=== PATIENT | female | born 1990 | race African-American/Black ===

== ENCOUNTER 2021-02-25 13:30 | Inpatient (IN) | payer OTHER, SELFPAY ==
--- NOTE | ~2021-02-25 | XR_ITS ---
EXAMINATION: XR CHEST CLINICAL INFORMATION: Cough and Covid positive. Decreased O2 saturation COMPARISON: None TECHNIQUE: 2 views of the chest were obtained. FINDINGS: The lungs are hypoexpanded with patchy opacity in the right midlung, left upper lobe and left lower lobe. Heart size and pulmonary vascularity is normal. No gross bony abnormality seen. XR/XR chest 2V IMPRESSION: Patchy opacity right midlung and left upper and lower lobe suggestive of panlobular infiltrates. There is no pleural effusion.
[2021-02-25 14:01] VITALS: BP 125/77; PULSE 100; RESP 19; TEMP 36.6; O2SAT 93; BMI 41.5
--- NOTE | 2021-02-25 16:12 | ED_ITS ---
HPI - URI/Sore Throat General Chief Complaint: Upper Respiratory Symptoms Stated Complaint: chest pain cough w/ mucus & blood Time Seen by Provider: 02/25/21 15:21 Source: patient Mode of arrival: ambulatory Limitations: no limitations History of Present Illness HPI Narrative: Patient no significant medical history not vaccinated against COVID having shortness of breath symptoms for last 1 week tested for COVID pcr test positive 5 days ago comes here for increased shortness of breath saturating 91% at room air dropped to 89% while in the ER . Patient been coughing a lot, feel chest tight subjective fever and malaise. Denies any nausea/vomiting or diarrhea Related Data Home Medications Medication Instructions Recorded Confirmed No Known Home Meds 02/25/21 02/25/21 Allergies Allergy/AdvReac Type Severity Reaction Status Date / Time No Known Allergies Allergy Verified 02/25/21 15:22 Review of Systems Review of Systems: Yes all other systems are reviewed and are negative [facility] Social History Social History Alcohol intake: never Patient Tobacco Use Status: Never used Tobacco Use of substances other than those prescribed or required for medical reasons: No Advance Directives: No Advance Directives Information Provided: Yes Patient : No Physical Exam Vital Signs: Vital Signs: Last Vital Signs Temp 98.9 F 02/25/21 20:27 Pulse 105 H 02/25/21 20:27 Resp 32 H 02/25/21 20:27 BP 111/51 L 02/25/21 20:27 Pulse Ox 97 02/25/21 20:27 BMI result Body Mass Index 41.5 Appearance: Alert. Oriented X3. No acute distress. Eyes: No pallor or icterus ENT: Pharynx normal. Oral Mucosa moist Neck: Normal inspection. Neck supple. CVS: Normal heart rate and rhythm. Pulses normal. Respiratory: No respiratory distress. Equal air entry bilateral, prolonged expiration Abdomen: Soft and nontender. Bowel sounds are present, no mass palpable, no CVA tenderness Skin: Skin warm and dry. Normal skin color. Normal skin turgor. Extremities: No lower extremity edema. No calf tenderness Neuro: Oriented X 3. MDM - URI/Sore Throat MDM Narrative Medical decision making narrative: Patient with COVID pneumonia and NAAT COVID test was negative will check the PCR as patient clinically and with chest x-ray looks like COVID pneumonia plan to admit patient for hypoxia will give IV Decadron prophylactic Rocephin Lab Data Attestation: I reviewed the patient's lab results. Result diagrams: 02/25/21 18:03 02/25/21 20:33 Labs: Lab Results 02/25/21 02/25/21 02/25/21 Range/Units 18:03 18:03 18:03 WBC 4.8 (4.8-10.8) X10*3/uL RBC 5.01 (4.20-5.50) X10*6/uL Hgb 13.5 (12.0-16.0) g/dl Hct 41.7 (37.0-47.0) % MCV 83.2 (80.0-98.0) fL MCH 26.9 L (27.0-33.0) pg MCHC 32.4 (31.0-35.0) g/dl RDW 13.9 (11.0-16.0) % Plt Count 296 (160-400) X10*3/uL MPV 10.0 (9.4-12.3) fL Immature Gran % (Auto) 1.5 H (0.0-0.4) % Neut % (Auto) 54.4 (45-73) % Lymph % (Auto) 33.1 (20-40) % [place] % (Auto) 10.4 (2-11) % Eos % (Auto) 0.4 (0-4) % Baso % (Auto) 0.2 (0-2) % Lymph # (Auto) 1.6 (1.2-4.9) X10*3/uL [place] # (Auto) 0.5 (0.1-1.2) X10*3/uL Eos # (Auto) 0.0 (0.0-0.4) X10*3/uL Baso # (Auto) 0.0 (0.0-0.2) X10*3/uL Abs Immat Gran (auto) 0.07 H (0.00-0.03) X10*3/uL Absolute Neuts (auto) 2.6 (2.0-8.3) x10*3/uL Absolute Nucleated RBC 0.000 (0.0-0.012) X10*3/uL Nucleated RBC % (auto) 0.0 (0.0-0.2) /100WBC Smear Tech's Comments VERIFIED D-Dimer High Sensitivty 233 NG/ML Sodium (135-145) mmol/L Potassium (3.3-5.1) mmol/L Chloride (96-108) mmol/L Carbon Dioxide (22-29) mmol/L Anion Gap (12-20) BUN (9-16) mg/dL Creatinine (0.5-1.4) mg/dL Estim Creat Clear Calc Estimated GFR Random Glucose (60-115) mg/dL Lactic Acid (0.5-2.0) mmol/L Calcium (8.4-10.2) mg/dL COVID-19 (ZIGGY) Negative (Negative) COVID-19 Clin Com See Note 02/25/21 02/25/21 Range/Units 18:03 20:33 WBC (4.8-10.8) X10*3/uL RBC (4.20-5.50) X10*6/uL Hgb (12.0-16.0) g/dl Hct (37.0-47.0) % MCV (80.0-98.0) fL MCH (27.0-33.0) pg MCHC (31.0-35.0) g/dl RDW (11.0-16.0) % Plt Count (160-400) X10*3/uL MPV (9.4-12.3) fL Immature Gran % (Auto) (0.0-0.4) % Neut % (Auto) (45-73) % Lymph % (Auto) (20-40) % [place] % (Auto) (2-11) % Eos % (Auto) (0-4) % Baso % (Auto) (0-2) % Lymph # (Auto) (1.2-4.9) X10*3/uL [place] # (Auto) (0.1-1.2) X10*3/uL Eos # (Auto) (0.0-0.4) X10*3/uL Baso # (Auto) (0.0-0.2) X10*3/uL Abs Immat Gran (auto) (0.00-0.03) X10*3/uL Absolute Neuts (auto) (2.0-8.3) x10*3/uL Absolute Nucleated RBC (0.0-0.012) X10*3/uL Nucleated RBC % (auto) (0.0-0.2) /100WBC Smear Tech's Comments D-Dimer High Sensitivty NG/ML Sodium 138 (135-145) mmol/L Potassium 4.1 (3.3-5.1) mmol/L Chloride 104 (96-108) mmol/L Carbon Dioxide 25 (22-29) mmol/L Anion Gap 13 (12-20) BUN 6 L (9-16) mg/dL Creatinine 0.66 (0.5-1.4) mg/dL Estim Creat Clear Calc 159.4 Estimated GFR > 60 Random Glucose 287 H (60-115) mg/dL Lactic Acid 1.8 (0.5-2.0) mmol/L Calcium 8.5 (8.4-10.2) mg/dL COVID-19 (ZIGGY) (Negative) COVID-19 Clin Com Discharge Plan Discharge Clinical Impression: Acute hypoxemic respiratory failure due to COVID-19 Patient Disposition: Admitted As Inpatient
[2021-02-25] MEDS: Albuterol Sulfate 90 MCG 8 GM INHALER 4 PUFF INHALE (16:51)
[2021-02-25 16:54] VITALS: PULSE 107; RESP 18; O2SAT 95
[2021-02-25 17:42] VITALS: BP 145/83; PULSE 110; RESP 18; TEMP 37.5; O2SAT 86
[2021-02-25 18:20] LABS: D Dimer High Sensitivity 233 NG/ML
[2021-02-25 18:30] LABS: Lactic Acid 1.8 mmol/L (0.5-2.0)
[2021-02-25 18:32] LABS: COVID-19 Test Negative (Negative)
[2021-02-25 18:33] LABS: Basophils Percent Auto 0.2 % (0-2); Eosinophils Percent Auto 0.4 % (0-4); Hematocrit 41.7 % (37.0-47.0); Hemoglobin 13.5 g/dl (12.0-16.0); Imm Gran Abs Auto 0.07 X10*3/uL (0.00-0.03); Imm Gran Pct Auto 1.5 % (0.0-0.4); Lymphocytes Absolute Auto 1.6 X10*3/uL (1.2-4.9); Lymphocytes Percent Auto 33.1 % (20-40); MANUAL DIFF FLAG SCAN; Mean Corpuscular HGB Conc 32.4 g/dl (31.0-35.0); Mean Corpuscular Hemoglobin 26.9 pg (27.0-33.0); Mean Corpuscular Volume 83.2 fL (80.0-98.0); Monocytes Absolute Auto 0.5 X10*3/uL (0.1-1.2); Monocytes Percent Auto 10.4 % (2-11); Neutrophils Absolute Auto 2.6 x10*3/uL (2.0-8.3); Neutrophils Percent Auto 54.4 % (45-73); Platelet Count 296 X10*3/uL (160-400); Red Blood Count 5.01 X10*6/uL (4.20-5.50); Red Cell Distribution Width 13.9 % (11.0-16.0); SCAN SMEAR FLAG 1; White Blood Count 4.8 X10*3/uL (4.8-10.8)
[2021-02-25] MEDS: guaiFEN/Codeine SF 200/20/10ML 10 ML LIQUID PO (18:39)
[2021-02-25] MEDS: 0.9 % Sodium Chloride 1,000 ML 999 ML IV (18:40)
[2021-02-25] MEDS: dexAMETHasone sod phosphate 10 MG/ML VIAL IVPUSH (18:42)
[2021-02-25] MEDS: cefTRIAXone sodium 1 GM in 0.9 % Sodium Chloride 50 ML IV (18:42)
[2021-02-25 18:43] VITALS: O2SAT 93
[2021-02-25 19:19] LABS: SLIDE REVIEW VERIFIED
--- NOTE | 2021-02-25 19:40 | PHA.MEDREC ---
Pharmacy Consult ? Medication Reconciliation Pharmacy has completed the medication reconciliation.
--- NOTE | 2021-02-25 20:12 | PC.NURSE ---
Pt states she tested positive at the [facility] a few days ago. Contact precautions in effect. Unlabored resp at rest with 2L NC.
[2021-02-25 20:27] VITALS: BP 111/51; PULSE 105; RESP 32; TEMP 37.2; O2SAT 97
[2021-02-25 20:54] LABS: Anion Gap 13 (12-20); Blood Urea Nitrogen 6 mg/dL (9-16); Calcium 8.5 mg/dL (8.4-10.2); Carbon Dioxide 25 mmol/L (22-29); Chloride 104 mmol/L (96-108); Creatinine Clr Calc Pharmacy 159.4; Estimated Glomerular Filt Rate > 60; Glucose Random 287 mg/dL (60-115); Potassium 4.1 mmol/L (3.3-5.1); Sodium 138 mmol/L (135-145)
--- NOTE | 2021-02-25 21:47 | PM.IMHP ---
History of Present Illness Date of Service: 02/25/21 Chief Complaint: Shortness of breath 30-year-old female with a past medical history of diabetes presented to the hospital today with a chief complaint of shortness of breath. Patient reported that for the past 1 week she has been having shortness of breath, cough, posttussive chest discomfort, generalized body aches, generally weak; and was tested positive for COVID-19 on 02/20/21; has been progressively worsening clinically; given continued symptoms and increased cough decided to come to the ER for further evaluation. Denies any nausea vomiting diarrhea. Denies any urinary symptoms. Denies any sputum production. Currently denies any chest pain or palpitations. Patient reports that she was not vaccinated against COVID-19 Review of all other systems is negative except mentioned above ER course: Per ER team patient was noted to be saturating 89% on presentation; coarse breath sounds; chest x-ray showed patchy infiltrates concerning for COVID 19 pneumonia. But rapid COVID test was negative in the ER. Admitted for further management. Patient also PMFSH Pertinent family history: Reviewed Social History Household Members: Spouse and Children Housing: Other Housing Other:: town house Do you presently have visiting nurse or other home services: No Alcohol intake: never Patient Tobacco Use Status: Never used Tobacco Substance Use Type: Marijuana service: No Current occupational status: unemployed Meds Allergies Allergy/AdvReac Type Severity Reaction Status Date / Time No Known Allergies Allergy Verified 02/25/21 15:22 Active Medications: Current Medications Pharmacy Consult (Consult Rx Perform Med Rec) 1 each MISCELLANE ONCE PRN PRN Reason: Consult order Physical Exam Vital Signs and Narrative: Vital Signs: Last Vital Signs Temp 98.9 F 02/25/21 20:27 Pulse 105 H 02/25/21 20:27 Resp 32 H 02/25/21 20:27 BP 111/51 L 02/25/21 20:27 Pulse Ox 97 02/25/21 20:27 BMI result Body Mass Index 41.5 Gen: Appears be in no acute distress; on supplemental oxygen. Speaks in full sentences. HEENT: NCAT, Moist mucosa. Pulmonary: Coarse breath sounds CVS: Normal S1-S2 Abdomen: BS+, Soft, Nontender Extremities: Warm well perfused Neuro: Alert and awake. Results Labs CBC and Chem 7: 02/26/21 06:28 02/26/21 06:28 Labs: Laboratory Results - last 24 hr 02/25/21 02/25/21 02/25/21 18:03 18:03 18:03 MCV 83.2 MCH 26.9 L MCHC 32.4 RDW 13.9 Plt Count 296 MPV 10.0 Immature Gran % (Auto) 1.5 H Neut % (Auto) 54.4 Lymph % (Auto) 33.1 [place] % (Auto) 10.4 Eos % (Auto) 0.4 Baso % (Auto) 0.2 Lymph # (Auto) 1.6 [place] # (Auto) 0.5 Eos # (Auto) 0.0 Baso # (Auto) 0.0 Abs Immat Gran (auto) 0.07 H Absolute Neuts (auto) 2.6 Absolute Nucleated RBC 0.000 Nucleated RBC % (auto) 0.0 Smear Tech's Comments VERIFIED D-Dimer High Sensitivty 233 Anion Gap Estim Creat Clear Calc Estimated GFR Random Glucose Lactic Acid Calcium COVID-19 (ZIGGY) Negative COVID-19 Clin Com See Note 02/25/21 02/25/21 18:03 20:33 MCV MCH MCHC RDW Plt Count MPV Immature Gran % (Auto) Neut % (Auto) Lymph % (Auto) [place] % (Auto) Eos % (Auto) Baso % (Auto) Lymph # (Auto) [place] # (Auto) Eos # (Auto) Baso # (Auto) Abs Immat Gran (auto) Absolute Neuts (auto) Absolute Nucleated RBC Nucleated RBC % (auto) Smear Tech's Comments D-Dimer High Sensitivty Anion Gap 13 Estim Creat Clear Calc 159.4 Estimated GFR > 60 Random Glucose 287 H Lactic Acid 1.8 Calcium 8.5 COVID-19 (ZIGGY) COVID-19 Clin Com Imaging Radiologist's Impressions: Impressions Chest X-Ray 02/25/21 14:13 IMPRESSION: Patchy opacity right midlung and left upper and lower lobe suggestive of panlobular infiltrates. There is no pleural effusion. Assessment and Plan (1) Acute hypoxemic respiratory failure due to COVID-19: Status: Resolved (2) Diabetes: Status: Acute 30-year-old female with a past medical history of diabetes presented to the hospital today with a chief complaint of shortness of breath/cough/COVID positive on 02/20/2021. Admitted for further management. COVID-19 pneumonia: Patient tested positive on 02/20/2021. Patient not vaccinated prior. Continue Decadron, ceftriaxone, azithromycin Id consult for further recommendations Patient saturating 89% on room air-placed on supplemental oxygenation; not in respiratory distress. Diabetes: Insulin sliding scale DVT prophylaxis: Lovenox Code status: Full code Quality Stroke Does the patient have a stroke diagnosis?: No VTE Prior VTE?: No VTE Risk Level:: Medical - low VTE Device Contraindication: N/A - Device Ordered VTE Drug Contraindication: Treatment Not Indicated
[2021-02-25 22:13] VITALS: BP 125/73; PULSE 101; RESP 29; TEMP 36.9; O2SAT 98
[2021-02-25 22:15] LABS: Influenza A PCR NEGATIVE (Negative); Influenza B PCR NEGATIVE (Negative); Resp Syncy Virus RNA Qual PCR NEGATIVE (Negative); SARS COV2 PCR INHOUSE POSITIVE (Negative)
[2021-02-25 22:16] LABS: HCG Quantitative < 2 mIU/mL
[2021-02-25 22:20] LABS: Glucose, Whole Blood 296 mg/dL (60-115)
[2021-02-25] MEDS: Insulin Lispro 100 UNIT/ML 3 ML VIAL SUBCUT (23:03)
[2021-02-25] MEDS: Azithromycin 500 MG TABLET PO (23:04)
[2021-02-25 23:10] LABS: Appearance Urine CLEAR; Color Urine YELLOW; Glucose Urine UA >=1000 MG/DL (NEG); Leukocyte Esterase Urine NEG (NEG); Nitrite Urine NEG (NEG); Specific Gravity - Urine 1.015 (1.005-1.025); Urine Blood 3+ (NEG); Urine Ketones NEG (NEG); Urine Protein NEG (NEG-TRACE)
[2021-02-25] MEDS: Enoxaparin Sodium 40 MG/0.4 ML SYRINGE SUBCUT (23:38)
[2021-02-25 23:59] LABS: Squamous Epithelial Cell Urine TRACE /LPF; WBC Urine 0-2 /HPF (0-4)
[2021-02-26 01:57] VITALS: BP 134/76; PULSE 102; RESP 31; TEMP 37.2; O2SAT 95
[2021-02-26 06:50] LABS: Hematocrit 39.5 % (37.0-47.0); Hemoglobin 12.8 g/dl (12.0-16.0); Imm Gran Abs Auto 0.08 X10*3/uL (0.00-0.03); Imm Gran Pct Auto 2.7 % (0.0-0.4); Lymphocytes Percent Auto 33.4 % (20-40); MANUAL DIFF FLAG SCAN; Mean Corpuscular HGB Conc 32.4 g/dl (31.0-35.0); Mean Corpuscular Hemoglobin 27.1 pg (27.0-33.0); Mean Corpuscular Volume 83.7 fL (80.0-98.0); Mean Platelet Volume 9.8 fL (9.4-12.3); Monocytes Absolute Auto 0.2 X10*3/uL (0.1-1.2); Neutrophils Absolute Auto 1.7 x10*3/uL (2.0-8.3); Neutrophils Percent Auto 57.9 % (45-73); Platelet Count 319 X10*3/uL (160-400); Red Blood Count 4.72 X10*6/uL (4.20-5.50); Red Cell Distribution Width 13.9 % (11.0-16.0); SCAN SMEAR FLAG 1
[2021-02-26 07:10] LABS: SLIDE REVIEW VERIFIED
[2021-02-26 07:14] LABS: Anion Gap 14 (12-20); Blood Urea Nitrogen 9 mg/dL (9-16); Calcium 9.1 mg/dL (8.4-10.2); Carbon Dioxide 22 mmol/L (22-29); Chloride 106 mmol/L (96-108); Creatinine Clr Calc Pharmacy 169.7; Estimated Glomerular Filt Rate > 60; Glucose Random 241 mg/dL (60-115); Potassium 4.3 mmol/L (3.3-5.1); Sodium 138 mmol/L (135-145)
[2021-02-26 08:45] LABS: Glucose, Whole Blood 205 mg/dL (60-115)
[2021-02-26 09:07] LABS: C Reactive Protein 5.14 mg/dL (< or = 0.50)
[2021-02-26 09:17] LABS: Estimated Average Glucose 177 mg/dL; Hemoglobin A1c % 7.8 %; Lactate Dehydrogenase 277 U/L (122-220)
[2021-02-26 09:28] LABS: Ferritin 343 ng/mL (10-122)
[2021-02-26] MEDS: dexAMETHasone 6 MG TABLET PO (09:29)
[2021-02-26] MEDS: 0.9 % Sodium Chloride Flush 3 ML SYRINGE IVFLUSH ×2 (09:30→18:43)
[2021-02-26] MEDS: Insulin Lispro 100 UNIT/ML 3 ML VIAL SUBCUT ×4 (09:31→21:42)
[2021-02-26 09:33] LABS: Procalcitonin 0.04 ng/mL
--- NOTE | 2021-02-26 10:56 | HO.PM.IMPN ---
Subjective Subjective Date of Service: 02/26/21 Interval History: seen and examined this AM she reports feeling better and breathing eaiser denies any fevers or chills in regards to her DM -- she reports that she had gestational DM, but has not been on any meds since delivery (was on metformin then) Review of Systems negative except interval history Physical Exam Vital Signs: Vital Signs: Last Vital Signs Temp 99.0 F 02/26/21 01:57 Pulse 102 H 02/26/21 01:57 Resp 31 H 02/26/21 01:57 BP 134/76 02/26/21 01:57 Pulse Ox 95 02/26/21 01:57 BMI result Body Mass Index 41.5 Const: Other: General - no acute distress, appears comfortable Cardiovascular - regular rate and rhythm, S1-S2 Lungs - dim sounds Abdomen - soft, nontender, no rebound or guarding Extremities - no edema bilaterally Neuro - awake and alert, no focal deficits Objective Data Active Medications Acetaminophen (Acetaminophen 325 Mg Tablet) 650 mg PO Q6H PRN PRN Reason: Pain, Mild (Pain Scale 1-3) Dexamethasone Sodium Phosphate (Dexamethasone Sod Phosphate 4 Mg/Ml Vial) 6 mg IVPUSH DAILY [facility] Stop: 03/08/21 09:01 Dextrose (Dextrose 50 % 25 Gm/50 Ml Vial) 25 gm IVPUSH Q15M PRN; Protocol PRN Reason: per Hypoglycemia Standing Ord. Enoxaparin Sodium (Enoxaparin Sodium 40 Mg/0.4 Ml Syringe) 40 mg SUBCUT Q24H [facility] Last Admin: 02/25/21 23:38 Dose: 40 mg Documented by: ANDRE Glucose (Glucose Gel 15 Gm Gel..Gram.) 15 gm PO Q15M PRN; Protocol PRN Reason: per Hypoglycemia Standing Ord. Insulin Human Lispro (Insulin Lispro 100 Unit/Ml 3 Ml Vial) 0 unit SUBCUT QIDACHS [facility]; Protocol Last Admin: 02/26/21 09:31 Dose: 4 unit Documented by: ASHLEY Melatonin (Melatonin 3 Mg Tablet) 6 mg PO BEDTIME PRN PRN Reason: Insomnia Pharmacy Consult (Consult Rx Perform Med Rec) 1 each MISCELLANE ONCE PRN PRN Reason: Consult order Senna (Sennosides 8.6 Mg Tablet) 17.2 mg PO BEDTIME PRN PRN Reason: Constipation Sodium Chloride (0.9 % Sodium Chloride Flush 3 Ml Syringe) 3 ml IVFLUSH QSHIFT [facility] Last Admin: 02/26/21 09:30 Dose: 3 ml Documented by: ASHLEY Labs CBC & Chem 7: 02/26/21 06:28 02/26/21 06:28 Labs: Laboratory Results - last 24 hr 02/25/21 02/25/21 02/25/21 18:03 18:03 18:03 MCV 83.2 MCH 26.9 L MCHC 32.4 RDW 13.9 Plt Count 296 MPV 10.0 Immature Gran % (Auto) 1.5 H Neut % (Auto) 54.4 Lymph % (Auto) 33.1 [place] % (Auto) 10.4 Eos % (Auto) 0.4 Baso % (Auto) 0.2 Lymph # (Auto) 1.6 [place] # (Auto) 0.5 Eos # (Auto) 0.0 Baso # (Auto) 0.0 Abs Immat Gran (auto) 0.07 H Absolute Neuts (auto) 2.6 Absolute Nucleated RBC 0.000 Nucleated RBC % (auto) 0.0 Smear Tech's Comments VERIFIED D-Dimer High Sensitivty 233 Anion Gap Estim Creat Clear Calc Estimated GFR POC Glucose Random Glucose Estimat Average Glucose Hemoglobin A1c % Lactic Acid Calcium Ferritin Lactate Dehydrogenase C-Reactive Protein Procalcitonin Beta HCG, Quant Urine Color Urine Appearance Urine pH Ur Specific [place] Urine Protein Urine Glucose (UA) Urine Ketones Urine Blood Urine Nitrite Ur Leukocyte Esterase Urine RBC Urine WBC Ur Squamous Epith Cells Urine Bacteria COVID-19 (ZIGGY) Negative COVID-19 Clin Com See Note Influenza Type A (PCR) Influenza Type B (PCR) RSV RNA Qual (PCR) SARS-CoV-2 RNA (RT-PCR) 02/25/21 02/25/21 02/25/21 18:03 20:33 20:33 MCV MCH MCHC RDW Plt Count MPV Immature Gran % (Auto) Neut % (Auto) Lymph % (Auto) [place] % (Auto) Eos % (Auto) Baso % (Auto) Lymph # (Auto) [place] # (Auto) Eos # (Auto) Baso # (Auto) Abs Immat Gran (auto) Absolute Neuts (auto) Absolute Nucleated RBC Nucleated RBC % (auto) Smear Tech's Comments D-Dimer High Sensitivty Anion Gap 13 Estim Creat Clear Calc 159.4 Estimated GFR > 60 POC Glucose Random Glucose 287 H Estimat Average Glucose Hemoglobin A1c % Lactic Acid 1.8 Calcium 8.5 Ferritin Lactate Dehydrogenase C-Reactive Protein Procalcitonin Beta HCG, Quant < 2 Urine Color Urine Appearance Urine pH Ur Specific [place] Urine Protein Urine Glucose (UA) Urine Ketones Urine Blood Urine Nitrite Ur Leukocyte Esterase Urine RBC Urine WBC Ur Squamous Epith Cells Urine Bacteria COVID-19 (ZIGGY) COVID-19 Clin Com Influenza Type A (PCR) NEGATIVE Influenza Type B (PCR) NEGATIVE RSV RNA Qual (PCR) NEGATIVE SARS-CoV-2 RNA (RT-PCR) POSITIVE A 02/25/21 02/25/21 02/26/21 22:12 22:50 06:28 MCV 83.7 MCH 27.1 MCHC 32.4 RDW 13.9 Plt Count 319 MPV 9.8 Immature Gran % (Auto) 2.7 H Neut % (Auto) 57.9 Lymph % (Auto) 33.4 [place] % (Auto) 6.0 Eos % (Auto) 0.0 Baso % (Auto) 0.0 Lymph # (Auto) 1.0 L [place] # (Auto) 0.2 Eos # (Auto) 0.0 Baso # (Auto) 0.0 Abs Immat Gran (auto) 0.08 H Absolute Neuts (auto) 1.7 L Absolute Nucleated RBC 0.000 Nucleated RBC % (auto) 0.0 Smear Tech's Comments VERIFIED D-Dimer High Sensitivty Anion Gap Estim Creat Clear Calc Estimated GFR POC Glucose 296 H Random Glucose Estimat Average Glucose Hemoglobin A1c % Lactic Acid Calcium Ferritin Lactate Dehydrogenase C-Reactive Protein Procalcitonin Beta HCG, Quant Urine Color YELLOW Urine Appearance CLEAR Urine pH 7.0 Ur Specific [place] 1.015 Urine Protein NEG Urine Glucose (UA) >=1000 H Urine Ketones NEG Urine Blood 3+ H Urine Nitrite NEG Ur Leukocyte Esterase NEG Urine RBC 1-4 Urine WBC 0-2 Ur Squamous Epith Cells TRACE Urine Bacteria NONE COVID-19 (ZIGGY) COVID-19 Clin Com Influenza Type A (PCR) Influenza Type B (PCR) RSV RNA Qual (PCR) SARS-CoV-2 RNA (RT-PCR) 02/26/21 02/26/21 02/26/21 06:28 06:28 06:28 MCV MCH MCHC RDW Plt Count MPV Immature Gran % (Auto) Neut % (Auto) Lymph % (Auto) [place] % (Auto) Eos % (Auto) Baso % (Auto) Lymph # (Auto) [place] # (Auto) Eos # (Auto) Baso # (Auto) Abs Immat Gran (auto) Absolute Neuts (auto) Absolute Nucleated RBC Nucleated RBC % (auto) Smear Tech's Comments D-Dimer High Sensitivty Anion Gap 14 Estim Creat Clear Calc 169.7 Estimated GFR > 60 POC Glucose Random Glucose 241 H Estimat Average Glucose 177 Hemoglobin A1c % 7.8 Lactic Acid Calcium 9.1 D Ferritin 343 H Lactate Dehydrogenase 277 H C-Reactive Protein 5.14 H Procalcitonin 0.04 Beta HCG, Quant Urine Color Urine Appearance Urine pH Ur Specific [place] Urine Protein Urine Glucose (UA) Urine Ketones Urine Blood Urine Nitrite Ur Leukocyte Esterase Urine RBC Urine WBC Ur Squamous Epith Cells Urine Bacteria COVID-19 (ZIGGY) COVID-19 Clin Com Influenza Type A (PCR) Influenza Type B (PCR) RSV RNA Qual (PCR) SARS-CoV-2 RNA (RT-PCR) 02/26/21 08:42 MCV MCH MCHC RDW Plt Count MPV Immature Gran % (Auto) Neut % (Auto) Lymph % (Auto) [place] % (Auto) Eos % (Auto) Baso % (Auto) Lymph # (Auto) [place] # (Auto) Eos # (Auto) Baso # (Auto) Abs Immat Gran (auto) Absolute Neuts (auto) Absolute Nucleated RBC Nucleated RBC % (auto) Smear Tech's Comments D-Dimer High Sensitivty Anion Gap Estim Creat Clear Calc Estimated GFR POC Glucose 205 H Random Glucose Estimat Average Glucose Hemoglobin A1c % Lactic Acid Calcium Ferritin Lactate Dehydrogenase C-Reactive Protein Procalcitonin Beta HCG, Quant Urine Color Urine Appearance Urine pH Ur Specific [place] Urine Protein Urine Glucose (UA) Urine Ketones Urine Blood Urine Nitrite Ur Leukocyte Esterase Urine RBC Urine WBC Ur Squamous Epith Cells Urine Bacteria COVID-19 (ZIGGY) COVID-19 Clin Com Influenza Type A (PCR) Influenza Type B (PCR) RSV RNA Qual (PCR) SARS-CoV-2 RNA (RT-PCR) Assessment and Plan (1) Acute hypoxemic respiratory failure due to COVID-19: Status: Acute Assessment and Plan: This is a 30 yo F who has a PMH of gestational DM, not vaccinated against COVID, who presents to the hospital about 5 days (tested positive 02/22/21) after being diagnosed with COVID with progressive respiratory symptoms. She is found to he hypoxic with CXR showing infiltrates. Admitted for further treatment. 1. Acute Respiratory Failure with hypoxia secondary to COVID 19 pneumonia 1a. Viral Sepsis due to COVID 19 Met sepsis criteria with persistent tachypnea and tachycardia IV decadron 6mg daily x 10 days ID consult Supplemental oxygen to keep saturations >90%; currently stable on 2L trend inflammatory biomakers No evidence of bacterial pneumonia at this time, d/c IV antibiotics 2. Diabetes, New onset Had gestational DM during previous , but metformin discontinued after delivery A1C is 7.8 Continue sliding scale; Metformin upon d/c Will need close oupatient follow up 3. Morbid Obesity Increases her risk for DM as well as severe covid will need outpatient close f/u Full Code DVT pptx, Lovenox Quality Stroke Does the patient have a stroke diagnosis?: No VTE Prior VTE?: No VTE Risk Level:: Medical - moderate - high VTE Device Contraindication: Treatment Not Indicated VTE Drug Contraindication: N/A - Med Ordered
--- NOTE | 2021-02-26 11:00 | MHC.CM.PN ---
Attempted to meet with patient. Nursing care currently being provided. Will attempt to meet again. Continue to monitor for d/c needs.
[2021-02-26 11:27] LABS: Alanine Aminotransferase 85 U/L (0-31); Albumin Level 3.8 g/dL (3.5-5.0); Alkaline Phosphatase 109 U/L (39-117); Aspartate Amino Transferase 58 U/L (5-31); Bilirubin Direct 0.2 mg/dL (0.0-0.5); Bilirubin Total 0.3 mg/dL (0.0-1.0); Total Protein 6.9 g/dL (6.5-8.0)
[2021-02-26 11:55] VITALS: BP 120/75; PULSE 92; RESP 32; TEMP 36.8; O2SAT 95
[2021-02-26 12:31] LABS: Glucose, Whole Blood 249 mg/dL (60-115)
[2021-02-26 12:45] VITALS: O2SAT 93
--- NOTE | 2021-02-26 12:46 | PC.NURSE ---
patient a&ox3, no c/o pain or discomfort, case consultant intact, [id number], pt o2 dependent 2 liters- 93%, vss, call villareal within reach, will continue to monitor
--- NOTE | 2021-02-26 13:42 | PC.NURSE ---
patient a&ox3, eating lunch, director of cardiac rehabilitation nsr 90s, vss, o sat 94$ on 2L nc, call villareal within reach, will continue to monitor
[2021-02-26 14:43] VITALS: BP 125/78; PULSE 98; RESP 34; TEMP 36.7; O2SAT 91
--- NOTE | 2021-02-26 15:03 | PC.NURSE ---
patient a&ox3, no c/o pain or discomfort, patient facetiming with son on phone, founder ceo & president nsr, will continue to monitor.
[2021-02-26 16:32] LABS: Glucose, Whole Blood 268 mg/dL (60-115)
[2021-02-26 18:43] VITALS: BP 126/73; PULSE 92; RESP 18; TEMP 36.7; O2SAT 95
--- NOTE | 2021-02-26 18:59 | PC.NURSE ---
patient a&ox3, no c/o pain or discomfort, vss, pt remains on O2 NC, property assessment monitor intact nsr, will continue to monitor.
[2021-02-26 21:02] LABS: Glucose, Whole Blood 290 mg/dL (60-115)
[2021-02-26] MEDS: Enoxaparin Sodium 40 MG/0.4 ML SYRINGE SUBCUT (21:42)
--- NOTE | 2021-02-26 22:26 | PC.NURSE ---
patient a&ox3, no c/o pain or discomfort, pt medicated per order, monitoring tech nsr, will continue to monitor.
--- NOTE | 2021-02-26 22:35 | MHC.CM.PN ---
CM met with admitted patient with bed assignment pending. A&Ox3. No IMM necessary. No HCP on file. Pt has copies at home. HCP/ Duy Zambrano ([phone]). Pt was positive Covid on 02/21/20. SX worsening. also positive. Has 8 month old at home. Lives with and family. Uses no services or DME. Pt is unvaccinated. D/C plan is home without services. May need to re-evaluate the need for home O2 closer to discharge. CM to follow for d/c needs.
[2021-02-27] VITALS (8 sets, daily range): BP systolic 127–156; BP diastolic 70–86; PULSE 86–98; RESP 18–30; TEMP 36.1–36.7; O2SAT 89–98; BMI 40.8
[2021-02-27] MEDS: 0.9 % Sodium Chloride Flush 3 ML SYRINGE IVFLUSH ×2 (00:27→09:09)
[2021-02-27 08:34] LABS: Glucose, Whole Blood 277 mg/dL (60-115)
[2021-02-27] MEDS: Insulin Lispro 100 UNIT/ML 3 ML VIAL SUBCUT ×2 (09:09→12:18)
[2021-02-27] MEDS: dexAMETHasone sod phosphate 4 MG/ML VIAL 6 MG IVPUSH (09:09)
--- NOTE | 2021-02-27 11:29 | P.DS_ITS ---
DS: Providers Provider Date of Service: 02/27/21 Date of admission: 02/25/21 22:00 Primary care physician: Dayna Alfonso MD Consults: 02/25/21 22:00 Consult to Infectious Diseases Routine Consulting Provider: Roseann France Reason for consultation: COVID pneumonia DS: Diagnosis Discharge Diagnosis (1) Acute hypoxemic respiratory failure due to COVID-19: Status: Acute DS: Summary Hospital Course Hospital Course: Chief Complaint: Shortness of breath 30-year-old female with a past medical history of diabetes presented to the hospital today with a chief complaint of shortness of breath.? Patient reported that for the past 1 week she has been having shortness of breath, cough, posttussive chest discomfort, generalized body aches, generally weak; and was tested positive for COVID-19 on 02/20/21; has been progressively worsening clinically; given continued symptoms and increased cough decided to come to the ER for further evaluation.? Denies any nausea vomiting diarrhea.? Denies any urinary symptoms.? Denies any sputum production.? Currently denies any chest pain or palpitations.? Patient reports that she was not vaccinated against COVID-19 Review of all other systems is negative except mentioned above ER course: Per ER team patient was noted to be saturating 89% on presentation; coarse breath sounds; chest x-ray showed patchy infiltrates concerning for COVID 19 pneumonia.? Hospital course 30 yo F who has a PMH of gestational DM, not vaccinated against COVID, who presents to the hospital about 5 days (tested positive 02/22/21) after being diagnosed with COVID with progressive respiratory symptoms. She is found to he hypoxic with CXR showing infiltrates. Admitted for further treatment, patient admitted to isolation unit treated with Decadron, cough medication and sup portive care patient did not qualify for remdesivir due to symptom onset > 6 days prior to presentation, patient responded well to above treatment her oxygenation remains stable on room air 92-93% she did not qualify for oxygen therefore being discharged home to finish a total 10 day course of Decadron is also being discharged on Pepcid and recommended to rest drink plenty of fluids and continue to wear mask. In regard to new onset diabetes mellitus with a hemoglobin A1c of 7.8 patient is being discharged on metformin 500 mg by mouth daily patient has history of gestational diabetes and has use metformin in the past Recommend to check blood sugar twice daily and to have close follow-up with PCP, recommend diabetic diet Time Spent with Patient Time attestation: Total time spent providing and/or coordinating discharge services: Discharge coordination time: Greater than 30 minutes Quality: Stroke Does the patient have a stroke diagnosis?: No Physical Exam Vital Signs: Vital Signs: Last Vital Signs Temp 97.8 F 02/27/21 11:11 Pulse 90 02/27/21 11:11 Resp 18 02/27/21 11:11 BP 131/74 02/27/21 11:11 Pulse Ox 92 02/27/21 11:11 Oxygen Flow Rate 2 02/26/21 12:45 BMI result Body Mass Index 40.8 General - no acute distress, appears comfortable Cardi ovascular - regula r rate and rhythm, S1-S2 Lungs - no respiratory distre ss, diminished cale ath sounds Abdomen - soft, nontender , no rebound or gu arding Extremities - no edema bilate rally Neuro - awak e and alert, no fo magdalena deficits DS: Data Data Completed and Pending Labs on day of discharge: Laboratory Results - last 24 hr 02/26/21 02/26/21 02/26/21 12:26 16:27 20:57 POC Glucose 249 H 268 H 290 H 02/27/21 08:28 POC Glucose 277 H Preliminary micro results at discharge 02/25/21 18:13 Blood Culture - Preliminary Blood - Venous No growth after 24 hours. 02/25/21 18:03 Blood Culture - Preliminary Blood - Venous No growth after 24 hours. Discharge Plan Discharge Patient Disposition: Home, Self-Care Discharge Diagnosis: Acute hypoxic respiratory failure due to COVID-19 infection Diabetes mellitus new onset Referrals: Dayna Sharma MD [Primary Care Provider] - 1 Week Discharge Medications: New dexamethasone [Decadron] 6 mg tablet 6 mg PO DAILY Qty: 8 RF: 0 metformin 500 mg tablet 500 mg PO DAILY Qty: 30 RF: 0 famotidine [Pepcid] 20 mg tablet 20 mg PO DAILY Qty: 30 RF: 0 No Action No Known Home Meds RF: 0 Discharge Orders: Discharge Order (Routine); Ordered 02/27/21 Ordered By: Nimco Forte Diet: diabetic diet Activity on Discharge: As tolerated Stand Alone Forms: Patient Portal Discharge page Care Plan Goals: Hypoxic respiratory failure due to COVID-19 infection take Decadron 6 mg by mouth daily for 8 more days take Pepcid 20 mg by mouth daily, rest drink plenty of fluids return to check with worsening symptoms Health Concerns: Diabetes mellitus, check blood sugar twice daily, start metformin 500 mg once daily and increase to 500 mg twice daily after 1 week if able to tolerate without side effects Plan of Treatment: Follow-up with primary care physician in 1 week Assessment: per discharge summary
--- NOTE | 2021-02-27 11:39 | MHC.CM.PN ---
PT CLEARED TO DC HOME TODAY PT DID NOT QUALIFY FOR HOME OXYGEN NO SERVICES ORDERED AT DC PT TO ARRANGE TRANSPORTATION
[2021-02-27 11:46] LABS: Glucose, Whole Blood 242 mg/dL (60-115)
== END 2021-02-27 14:10 | disposition home or self-care (01) | DRG 137 ==
LOC: HO.ED 21:46 → HO.EDOVER 22:25 → HO.IMC 02-26 23:00
PROVIDERS: Family Medicine; Physician Assistant Medical; Admitting Provider Hospitalist; Emergency Provider Internal Medicine; PCP Internal Medicine; Visit Provider Hospitalist
DX: U07.1 COVID-19 (principal); J96.01 Acute respiratory failure with hypoxia; J12.82 Pneumonia due to coronavirus disease 2019; E66.01 Morbid (severe) obesity due to excess calories; Z68.41 Body mass index [BMI] 40.0-44.9, adult; E11.9 Type 2 diabetes mellitus without complications; Z79.84 Long term (current) use of oral hypoglycemic drugs; Z79.899 Other long term (current) drug therapy
CPT/HCPCS: 0241U; 36415; 71046; 80048; 80076; 81001; 81003; 82728; 82947; 83036; 83605; 83615; 84145; 84702; 85025; 85379; 86140; 87040; 87635; 94640; 96361; 96365; 96375; 99285; J0696; J1100; J1650; J8540

== ENCOUNTER 2022-04-09 10:31 | Emergency (ER) | payer OTHER, SELFPAY ==
--- NOTE | ~2022-04-09 | US_ITS ---
EXAMINATION: US PELVIS COMPLETE CLINICAL INFORMATION: Right ovarian cyst, right lower quadrant pain COMPARISON: CT abdomen pelvis performed same day TECHNIQUE: Transabdominal and transvaginal imaging was performed. FINDINGS: The uterus is of normal size and echogenicity measuring 9.9 x 5.3 x 5.8 cm. A regular homogeneous endometrium is identified measuring 0.4 cm. Nabothian cysts in the cervix. Both ovaries are of normal appearance and echogenicity. The right measures 4.5 x 1.9 x 2.2 cm for a volume of 9.9 mL. The left measures 4.1 x 2.1 x 2.2 cm for a volume of 11.4 mL, and may be slightly over measured. No ovarian cyst or mass. There is no pelvic free fluid. Equivocally prominent myometrial vessels. US/US pelvic and transvaginal IMPRESSION: Unremarkable sonographic appearance of the ovaries without evidence of ovarian cyst or mass. In retrospect the structure measured on prior CT likely reflective the right ovary. Equivocally prominent myometrial vessels, recommend correlation with any symptoms of pelvic venous congestion syndrome.
--- NOTE | ~2022-04-09 | CT_ITS ---
EXAMINATION: CT ABDOMEN AND PELVIS WITH CONTRAST CLINICAL INFORMATION: Right lower quadrant tenderness and pain COMPARISON: None TECHNIQUE: Multidetector volumetric images were obtained from the superior aspect of the liver through the pubic symphysis following administration 85 mL of Omnipaque 350 intravenous contrast. Sagittal and coronal reformatted images were obtained on the technologist's workstation. Oral contrast: No This CT examination was performed using dose optimization techniques as appropriate, variously including the following: *Automated exposure control *Adjustment of mA and/or kV according to patient size (this includes techniques or standardized protocols for targeted exams where dose is matched to indication/reason for exam; i.e. extremities or head) *Use of iterative reconstruction technique DLP: 950 mGy-cm FINDINGS: LUNG BASES: Unremarkable. ABDOMINAL AND PELVIC WALL: Unremarkable. LIVER AND BILIARY TREE: Hypoattenuating hepatic parenchyma suggesting hepatic steatosis. GALLBLADDER: Unremarkable. PANCREAS: Unremarkable. SPLEEN: Unremarkable. ADRENAL GLANDS: Unremarkable. KIDNEYS AND URETERS: Unremarkable. GASTROINTESTINAL TRACT: Colonic diverticulosis without evidence of diverticulitis. Mobile cecum is positioned midline. No dilation of large or small bowel to suggest obstruction. Appendix is mildly dilated measuring 0.8 cm however without periappendiceal inflammatory change. Please note, the appendix is relatively midline given the mobile position of the cecum. VASCULAR: Unremarkable. LYMPH NODES/PERITONEUM: No lymphadenopathy. FREE FLUID: None. BLADDER: Unremarkable. PELVIC VISCERA: A 3 cm intermediate attenuation right ovarian lesion incompletely characterized. OSSEOUS STRUCTURES: Unremarkable. CT/CT abdomen pelvis w IV con IMPRESSION: Appendix is mildly dilated measuring 0.8 cm however without periappendiceal inflammatory change, equivocal for appendicitis and correlation with clinical symptoms and labs is recommended. Of note, there is mobile positioning of the cecum and therefore the appendix is relatively midline. A 3 cm intermediate attenuation right ovarian lesion incompletely characterized, though most commonly reflective of a hemorrhagic cyst. Recommend dedicated nonemergent pelvic ultrasound for further evaluation. Hepatic steatosis.
[2022-04-09 11:38] VITALS: BP 127/73; PULSE 80; RESP 16; TEMP 36.8; O2SAT 99; BMI 41.5
--- NOTE | 2022-04-09 11:38 | ED.ABDPAIN ---
HPI - Abdominal Pain General Chief Complaint: Abdominal Pain <Susan Oglesby NP - Last Filed: 04/09/22 11:40> Stated Complaint: lower abd pain <Susan Oglesby NP - Last Filed: 04/09/22 11:40> Time Seen by Provider: 04/09/22 11:45 <Susan Oglesby NP - Last Filed: 04/09/22 11:40> Source: patient <Nadinemanisha Jenkins PEREZ Jorgensen - Last Filed: 04/09/22 17:13> Mode of arrival: ambulatory <Nadine Jorgensen CNP - Last Filed: 04/09/22 17:13> Limitations: no limitations <Nadine Jorgensen CNP - Last Filed: 04/09/22 17:13> History of Present Illness HPI narrative: Patient is a 31-year-old female who presents to the emergency department for evaluation of abdominal pain. She reports onset of pain to be last night. Was gradual in onset located to the mid lower abdomen/suprapubic region and around the umbilicus. Overall her pain has improved and is less severe however she states that as of today the pain is more localized to the right lower quadrant. She does endorse a few episodes of diarrhea today, nonbloody, without mucus, as well as chills. Denies any fevers, nausea, vomiting, upper abdominal pain. Reports uncertain status, history of PCOS, with baseline irregular menses, last menstrual period was 2-3 months ago. Denies back/flank pain, dysuria, urinary frequency/urgency/hesitancy, abnormal vaginal discharge, pelvic discomfort, concern for STI. She took ibuprofen prior to arrival with some relief of her pain <Nadine Jorgensen CNP - Last Filed: 04/09/22 17:13> Related Data Home Medications: Previous Rx's Medication Instructions Recorded blood sugar diagnostic (FreeStyle #10 ea 02/27/21 Lite Strips) blood-glucose meter (FreeStyle #1 ea 02/27/21 Lite Meter kit) dexamethasone 6 mg tablet 6 mg PO DAILY #8 tabs 02/27/21 (Decadron) famotidine 20 mg tablet (Pepcid) 20 mg PO DAILY #30 tabs 02/27/21 lancets 28 gauge (FreeStyle #100 ea 02/27/21 Lancets) metformin 500 mg tablet 500 mg PO DAILY #30 tabs 02/27/21 <Susan Oglesby NP - Last Filed: 04/09/22 11:40> Allergies/Adverse Reactions: Allergies Allergy/AdvReac Type Severity Reaction Status Date / Time No Known Allergies Allergy Verified 04/09/22 12:10 <Susan Oglesby NP - Last Filed: 04/09/22 11:40> Review of Systems Review of Systems Constitutional : No Weight loss, No Fever, positive Chills ENT/Mouth :? No sore throat, No Rhinorrhea Eyes: No Swelling, No Redness Cardiovascular : No Chest Pain, No SOB, No Edema Respiratory : No Cough, No Sputum, No Wheezing Gastrointestinal : No Nausea, no Vomiting, positive Diarrhea, positive abdominal pain, No Hematochezia, No Melena Genitourinary : No Dysuria, No Urinary Frequency, No Hematuria, No Urgency? Musculoskeletal : No joint pain, No Myalgias, No Joint Swelling Skin : No Skin Lesions, No rash Neuro : No Weakness, No Numbness, No Dizziness, No Headache Psych : No Anxiety/Panic, No Depression Heme/Lymph: No Bruising, No Lymphadenopathy Endocrine : No Polyuria, No Polydipsia <Nadine Jorgensen CNP - Last Filed: 04/09/22 17:13> Yes all other systems are reviewed and are negative <Nadine Jorgensen CNP - Last Filed: 04/09/22 17:13> [facility] Past Medical History Attestation statement: The following information was validated with the patient. <Nadine Jorgensen CNP - Last Filed: 04/09/22 17:13> Source: old records reviewed <Nadine Jorgensen CNP - Last Filed: 04/09/22 17:13> Medical History: Medical History (Updated 04/09/22 @ 16:55 by Nadine Jorgensen CNP) Abdominal pain PCOS (polycystic ovarian syndrome) <Susan Oglesby NP - Last Filed: 04/09/22 11:40> Social History Social History: Social History Household Members: Spouse and Children Housing: Other Housing Other:: town house Do you presently have visiting nurse or other home services: No Alcohol intake: never Patient Tobacco Use Status: Never used Tobacco Substance Use Type: Marijuana Advance Directives: No Advance Directives Information Provided: No service: No Current occupational status: unemployed <Susan Oglesby NP - Last Filed: 04/09/22 11:40> Physical Exam ED Vital Signs: Vital Signs - 24 hr 04/09/22 11:38 04/09/22 12:09 Temperature 98.3 F Pulse Rate 80 Respiratory Rate 16 16 Blood Pressure 127/73 Pulse Oximetry 99 Oxygen Delivery Method Room Air BMI result Body Mass Index 41.5 <Susan Oglesby NP - Last Filed: 04/09/22 11:40> Vital Signs - 24 hr 04/09/22 11:38 04/09/22 12:09 Temperature 98.3 F Pulse Rate 80 Respiratory Rate 16 16 Blood Pressure 127/73 Pulse Oximetry 99 Oxygen Delivery Method Room Air BMI result Body Mass Index 41.5 <Nadine Jorgensen CNP - Last Filed: 04/09/22 17:13> Appearance: Alert.?Oriented to person, place and time. No acute distress.?Normal affect. Eyes: Pupils equal, round and reactive to light.? ENT: Pharynx normal.?? Neck: Normal inspection.? Neck supple.?? CVS: Heart sounds normal. Normal heart rate and rhythm.? Pulses normal.?? Respiratory: No respiratory distress.? Lung sounds clear to auscultation bilaterally?? Abdomen: Soft with right lower quadrant tenderness upon light palpation, does not appear to have rebound tenderness. No guarding. Normoactive bowel sounds. No pulsatile mass.?? Skin: Skin warm and dry.? Normal skin color.? Extremities: No lower extremity edema.?? Neuro: Moves all extremities spontaneously. Sensation intact bilaterally. Ambulates with normal steady gait. <Nadine Jorgensen CNP - Last Filed: 04/09/22 17:13> Course Course Course Narrative: This is a rapid medical exam. Deferred additional HPI, ROS, PE to primary provider. 31 yo with no known medical history here with lower abdominal pain, diarrhea (3-4x), chills since last night. Will obtain labs, viral testing. VSS <Susandunia Oglesby NP - Last Filed: 04/09/22 11:40> Reevaluation(s) Reevaluation #1: CBC reveals some very mild leukocytosis of 12.2 without left shift. CMP is overall unremarkable, mildly elevated total bilirubin at 1.3, transaminases otherwise unremarkable, lipase within normal limits. COVID-19/influenza testing are negative. testing negative. Urinalysis with small amount of pyuria, 1+ urine bacteria in addition to squamous epithelial cells, suspect this is likely urogenital contamination as she is without any genitourinary complaints at this time. CT of the abdomen and pelvis reveals with gentle finding of hepatic steatosis, 3 cm right ovarian lesion most commonly reflective of a hemorrhagic cyst, with recommendation for pelvic ultrasound for follow-up. Appendix is mildly dilated at 0.8 cm without periappendiceal inflammatory changes, equivocal for appendicitis. Will consult with General surgery on-call <Nadine Jorgensen CNP - Last Filed: 04/09/22 17:13> Time: 15:03 <Nadine Jorgensen CNP - Last Filed: 04/09/22 17:13> Reevaluation #2: Consulted with general surgery; Dr. Hartley, advised unlikely acute appendicitis. Reviewed this case with ED attending Dr. Moore; plan to obtain pelvic ultrasound at this time for further evaluation, at this time low suspicion for ovarian torsion, due to the size of cyst. If ultrasound is without acute emergent findings, patient will be discharged with recommendation for follow-up in 24 hours as this may be early appendicitis, and strict return precautions for any severe worsening pain <Nadine Jorgensen CNP - Last Filed: 04/09/22 17:13> Time: 15:18 <Nadine Jorgensen CNP - Last Filed: 04/09/22 17:13> Reevaluation #3: Pelvic ultrasound reveals unremarkable appearance of the ovaries without evidence of cyst or mass, likely the previously measured structure on CT was reflective of the right ovary Dr. Hartley was at bedside to evaluate patient, abdominal examination very benign currently, overall picture does not suggest acute appendicitis. At this time she is stable for discharge. Discussed worrisome signs and symptoms that would warrant re-evaluation in the emergency department, advised follow-up. Patient verbalizes understanding. <Nadine Jorgensen CNP - Last Filed: 04/09/22 17:13> Time: 16:49 <Nadine Alicearaseli Jorgensen CNP - Last Filed: 04/09/22 17:13> Medical Decision Making Medical Decision Making [facility] Narrative: Patient is a 31-year-old female with past medical history of PCOS and prediabetes presenting to emergency department for evaluation of abdominal pain. Overall she is well-appearing, nontoxic, afebrile without tachycardia, tachypnea, or hypoxia. She does have right lower quadrant tenderness even upon mild palpation. Will obtain CBC to evaluate for leukocytosis/ anemia, CMP and lipase to evaluate for abnormal electrolytes /abnormal renal function/ abnormal hepatic/biliary function, and Urinalysis. Will obtain CT of the abdomen and pelvis for further evaluation. Differential to include diverticulitis, appendicitis, colitis, obstruction, gastroenteritis, urinary tract infection, pyelonephritis, ureteral calculi, hydronephrosis, ectopic , ovarian torsion. <Nadine Jorgensen CNP - Last Filed: 04/09/22 17:13> Differential Diagnosis Differential Diagnoses: The differential diagnosis associated with the presentation includes (As noted above) <Nadinemanisha Jorgensen CNP - Last Filed: 04/09/22 17:13> Lab Data [facility] Lab Attestation statement: I reviewed the patient's lab results. <Nadine Jorgensen CNP - Last Filed: 04/09/22 17:13> Result Diagrams: 04/09/22 12:05 04/09/22 12:05 <Susan Oglesby NP - Last Filed: 04/09/22 11:40> Labs: Lab Results 04/09/22 04/09/22 04/09/22 Range/Units 11:49 12:05 12:05 WBC 12.2 H (4.8-10.8) X10*3/uL RBC 5.02 (4.20-5.50) X10*6/uL Hgb 13.0 (12.0-16.0) g/dl Hct 40.3 (37.0-47.0) % MCV 80.3 (80.0-98.0) fL MCH 25.9 L (27.0-33.0) pg MCHC 32.3 (31.0-35.0) g/dl RDW 15.4 (11.0-16.0) % Plt Count 324 (160-400) X10*3/uL MPV 9.7 (9.4-12.3) fL Immature Gran % (Auto) 0.3 (0.0-0.4) % Neut % (Auto) 69.3 (45-73) % Lymph % (Auto) 23.9 (20-40) % Parke % (Auto) 5.3 (2-11) % Eos % (Auto) 0.7 (0-4) % Baso % (Auto) 0.5 (0-2) % Lymph # (Auto) 2.9 (1.2-4.9) X10*3/uL Parke # (Auto) 0.7 (0.1-1.2) X10*3/uL Eos # (Auto) 0.1 (0.0-0.4) X10*3/uL Baso # (Auto) 0.1 (0.0-0.2) X10*3/uL Abs Immat Gran (auto) 0.04 H (0.00-0.03) X10*3/uL Absolute Neuts (auto) 8.4 H (2.0-8.3) x10*3/uL Absolute Nucleated RBC 0.000 (0.0-0.012) X10*3/uL Nucleated RBC % (auto) 0.0 (0.0-0.2) /100WBC Sodium 139 (135-145) mmol/L Potassium 3.8 (3.3-5.1) mmol/L Chloride 104 (96-108) mmol/L Carbon Dioxide 24 (22-29) mmol/L Anion Gap 15 (12-20) BUN 8 L (9-16) mg/dL Creatinine 0.67 (0.5-1.4) mg/dL Estim Creat Clear Calc 155.6 Estimated GFR > 60 Random Glucose 118 H (60-115) mg/dL Calcium 9.5 (8.4-10.2) mg/dL Total Bilirubin 1.3 H (0.0-1.0) mg/dL Direct Bilirubin 0.3 (0.0-0.5) mg/dL AST 16 (5-31) U/L ALT 24 (0-31) U/L Alkaline Phosphatase 76 (39-117) U/L Total Protein 7.2 (6.5-8.0) g/dL Albumin 4.4 (3.5-5.0) g/dL Lipase (8-78) U/L Urine Color Urine Appearance Urine pH (5.0-9.0) Ur Specific [place] (1.005-1.025) Urine Protein (Neg-Trace) mg/dL Urine Glucose (UA) (Negative) mg/dL Urine Ketones (Negative) mg/dL Urine Blood (Negative) Urine Nitrite (Negative) Ur Leukocyte Esterase (Negative) Urine RBC (0-2) /HPF Urine WBC (0-5) /HPF Ur Squamous Epith Cells (0-2) /HPF Urine Bacteria (None Seen) Hyaline Casts (0-2) /LPF Urine Test (NEGATIVE) Influenza Type A (PCR) NEGATIVE (Negative) Influenza Type B (PCR) NEGATIVE (Negative) RSV RNA Qual (PCR) NEGATIVE (Negative) SARS-CoV-2 RNA (RT-PCR) NEGATIVE (Negative) 04/09/22 04/09/22 04/09/22 Range/Units 12:05 13:11 13:11 WBC (4.8-10.8) X10*3/uL RBC (4.20-5.50) X10*6/uL Hgb (12.0-16.0) g/dl Hct (37.0-47.0) % MCV (80.0-98.0) fL MCH (27.0-33.0) pg MCHC (31.0-35.0) g/dl RDW (11.0-16.0) % Plt Count (160-400) X10*3/uL MPV (9.4-12.3) fL Immature Gran % (Auto) (0.0-0.4) % Neut % (Auto) (45-73) % Lymph % (Auto) (20-40) % Parke % (Auto) (2-11) % Eos % (Auto) (0-4) % Baso % (Auto) (0-2) % Lymph # (Auto) (1.2-4.9) X10*3/uL Parke # (Auto) (0.1-1.2) X10*3/uL Eos # (Auto) (0.0-0.4) X10*3/uL Baso # (Auto) (0.0-0.2) X10*3/uL Abs Immat Gran (auto) (0.00-0.03) X10*3/uL Absolute Neuts (auto) (2.0-8.3) x10*3/uL Absolute Nucleated RBC (0.0-0.012) X10*3/uL Nucleated RBC % (auto) (0.0-0.2) /100WBC Sodium (135-145) mmol/L Potassium (3.3-5.1) mmol/L Chloride (96-108) mmol/L Carbon Dioxide (22-29) mmol/L Anion Gap (12-20) BUN (9-16) mg/dL Creatinine (0.5-1.4) mg/dL Estim Creat Clear Calc Estimated GFR Random Glucose (60-115) mg/dL Calcium (8.4-10.2) mg/dL Total Bilirubin (0.0-1.0) mg/dL Direct Bilirubin (0.0-0.5) mg/dL AST (5-31) U/L ALT (0-31) U/L Alkaline Phosphatase (39-117) U/L Total Protein (6.5-8.0) g/dL Albumin (3.5-5.0) g/dL Lipase 15 (8-78) U/L Urine Color Yellow Urine Appearance Cloudy Urine pH 6.0 (5.0-9.0) Ur Specific [place] 1.020 (1.005-1.025) Urine Protein Trace (Neg-Trace) mg/dL Urine Glucose (UA) Negative (Negative) mg/dL Urine Ketones Negative (Negative) mg/dL Urine Blood Negative (Negative) Urine Nitrite Negative (Negative) Ur Leukocyte Esterase Small (1+) H (Negative) Urine RBC 0-2 (0-2) /HPF Urine WBC 11-20 H (0-5) /HPF Ur Squamous Epith Cells 11-20 (0-2) /HPF Urine Bacteria 1+ (None Seen) Hyaline Casts 0-2 (0-2) /LPF Urine Test NEGATIVE (NEGATIVE) Influenza Type A (PCR) (Negative) Influenza Type B (PCR) (Negative) RSV RNA Qual (PCR) (Negative) SARS-CoV-2 RNA (RT-PCR) (Negative) <Susan Oglesby, [employer] - Last Filed: 04/09/22 11:40> Lab Results 04/09/22 04/09/22 04/09/22 Range/Units 11:49 12:05 12:05 WBC 12.2 H (4.8-10.8) X10*3/uL RBC 5.02 (4.20-5.50) X10*6/uL Hgb 13.0 (12.0-16.0) g/dl Hct 40.3 (37.0-47.0) % MCV 80.3 (80.0-98.0) fL MCH 25.9 L (27.0-33.0) pg MCHC 32.3 (31.0-35.0) g/dl RDW 15.4 (11.0-16.0) % Plt Count 324 (160-400) X10*3/uL MPV 9.7 (9.4-12.3) fL Immature Gran % (Auto) 0.3 (0.0-0.4) % Neut % (Auto) 69.3 (45-73) % Lymph % (Auto) 23.9 (20-40) % Parke % (Auto) 5.3 (2-11) % Eos % (Auto) 0.7 (0-4) % Baso % (Auto) 0.5 (0-2) % Lymph # (Auto) 2.9 (1.2-4.9) X10*3/uL Parke # (Auto) 0.7 (0.1-1.2) X10*3/uL Eos # (Auto) 0.1 (0.0-0.4) X10*3/uL Baso # (Auto) 0.1 (0.0-0.2) X10*3/uL Abs Immat Gran (auto) 0.04 H (0.00-0.03) X10*3/uL Absolute Neuts (auto) 8.4 H (2.0-8.3) x10*3/uL Absolute Nucleated RBC 0.000 (0.0-0.012) X10*3/uL Nucleated RBC % (auto) 0.0 (0.0-0.2) /100WBC Sodium 139 (135-145) mmol/L Potassium 3.8 (3.3-5.1) mmol/L Chloride 104 (96-108) mmol/L Carbon Dioxide 24 (22-29) mmol/L Anion Gap 15 (12-20) BUN 8 L (9-16) mg/dL Creatinine 0.67 (0.5-1.4) mg/dL Estim Creat Clear Calc 155.6 Estimated GFR > 60 Random Glucose 118 H (60-115) mg/dL Calcium 9.5 (8.4-10.2) mg/dL Total Bilirubin 1.3 H (0.0-1.0) mg/dL Direct Bilirubin 0.3 (0.0-0.5) mg/dL AST 16 (5-31) U/L ALT 24 (0-31) U/L Alkaline Phosphatase 76 (39-117) U/L Total Protein 7.2 (6.5-8.0) g/dL Albumin 4.4 (3.5-5.0) g/dL Lipase (8-78) U/L Urine Color Urine Appearance Urine pH (5.0-9.0) Ur Specific [place] (1.005-1.025) Urine Protein (Neg-Trace) mg/dL Urine Glucose (UA) (Negative) mg/dL Urine Ketones (Negative) mg/dL Urine Blood (Negative) Urine Nitrite (Negative) Ur Leukocyte Esterase (Negative) Urine RBC (0-2) /HPF Urine WBC (0-5) /HPF Ur Squamous Epith Cells (0-2) /HPF Urine Bacteria (None Seen) Hyaline Casts (0-2) /LPF Urine Test (NEGATIVE) Influenza Type A (PCR) NEGATIVE (Negative) Influenza Type B (PCR) NEGATIVE (Negative) RSV RNA Qual (PCR) NEGATIVE (Negative) SARS-CoV-2 RNA (RT-PCR) NEGATIVE (Negative) 04/09/22 04/09/22 04/09/22 Range/Units 12:05 13:11 13:11 WBC (4.8-10.8) X10*3/uL RBC (4.20-5.50) X10*6/uL Hgb (12.0-16.0) g/dl Hct (37.0-47.0) % MCV (80.0-98.0) fL MCH (27.0-33.0) pg MCHC (31.0-35.0) g/dl RDW (11.0-16.0) % Plt Count (160-400) X10*3/uL MPV (9.4-12.3) fL Immature Gran % (Auto) (0.0-0.4) % Neut % (Auto) (45-73) % Lymph % (Auto) (20-40) % [place]ke % (Auto) (2-11) % Eos % (Auto) (0-4) % Baso % (Auto) (0-2) % Lymph # (Auto) (1.2-4.9) X10*3/uL Parke # (Auto) (0.1-1.2) X10*3/uL Eos # (Auto) (0.0-0.4) X10*3/uL Baso # (Auto) (0.0-0.2) X10*3/uL Abs Immat Gran (auto) (0.00-0.03) X10*3/uL Absolute Neuts (auto) (2.0-8.3) x10*3/uL Absolute Nucleated RBC (0.0-0.012) X10*3/uL Nucleated RBC % (auto) (0.0-0.2) /100WBC Sodium (135-145) mmol/L Potassium (3.3-5.1) mmol/L Chloride (96-108) mmol/L Carbon Dioxide (22-29) mmol/L Anion Gap (12-20) BUN (9-16) mg/dL Creatinine (0.5-1.4) mg/dL Estim Creat Clear Calc Estimated GFR Random Glucose (60-115) mg/dL Calcium (8.4-10.2) mg/dL Total Bilirubin (0.0-1.0) mg/dL Direct Bilirubin (0.0-0.5) mg/dL AST (5-31) U/L ALT (0-31) U/L Alkaline Phosphatase (39-117) U/L Total Protein (6.5-8.0) g/dL Albumin (3.5-5.0) g/dL Lipase 15 (8-78) U/L Urine Color Yellow Urine Appearance Cloudy Urine pH 6.0 (5.0-9.0) Ur Specific [place] 1.020 (1.005-1.025) Urine Protein Trace (Neg-Trace) mg/dL Urine Glucose (UA) Negative (Negative) mg/dL Urine Ketones Negative (Negative) mg/dL Urine Blood Negative (Negative) Urine Nitrite Negative (Negative) Ur Leukocyte Esterase Small (1+) H (Negative) Urine RBC 0-2 (0-2) /HPF Urine WBC 11-20 H (0-5) /HPF Ur Squamous Epith Cells 11-20 (0-2) /HPF Urine Bacteria 1+ (None Seen) Hyaline Casts 0-2 (0-2) /LPF Urine Test NEGATIVE (NEGATIVE) Influenza Type A (PCR) (Negative) Influenza Type B (PCR) (Negative) RSV RNA Qual (PCR) (Negative) SARS-CoV-2 RNA (RT-PCR) (Negative) <Nadine Jorgensen CNP - Last Filed: 04/09/22 17:13> Independent Interpretation I performed an independent interpretation of an: Ultrasound and CT Scan <Nadine Jorgensen CNP - Last Filed: 04/09/22 17:13> Radiology Impression Discussion of test interpretation with radiology: I have reviewed the radiologist's reading. <Nadine Jorgensen CNP - Last Filed: 04/09/22 17:13> Radiologist Impression: Appendix is mildly dilated measuring 0.8 cm however without periappendiceal inflammatory change, equivocal for appendicitis and correlation with clinical symptoms and labs is recommended. Of note, there is mobile positioning of the cecum and therefore the appendix is relatively midline. ? A 3 cm intermediate attenuation right ovarian lesion incompletely characterized, though most commonly reflective of a hemorrhagic cyst. Recommend dedicated nonemergent pelvic ultrasound for further evaluation. ? Hepatic steatosis. US/US pelvic and transvaginal IMPRESSION: ? Unremarkable sonographic appearance of the ovaries without evidence of ovarian cyst or mass. In retrospect the structure measured on prior CT likely reflective the right ovary. ? Equivocally prominent myometrial vessels, recommend correlation with any symptoms of pelvic venous congestion syndrome. <Nadine Jorgensen CNP - Last Filed: 04/09/22 17:13> Medications Administered Discontinued Medications Generic Name Dose Route Start Last Admin Trade Name Freq PRN Reason Stop Dose Admin Sodium Chloride 1,000 mls @ 999 mls/hr 04/09/22 12:00 04/09/22 15:29 Ns IV 04/09/22 13:00 Infused .Q1H1M LEXIS Infusion Iohexol 100 ml 04/09/22 13:43 04/09/22 13:44 Iohexol 350 Mg/Ml 100 Ml Infus..Btl IV 04/09/22 13:44 85 ml ONCE ONE Administration Ketorolac Tromethamine 30 mg 04/09/22 15:22 04/09/22 15:28 Ketorolac Tromethamine 30 Mg/Ml Vial IVPUSH 04/09/22 15:23 30 mg ONCE ONE Administration <Susan Oglesby NP - Last Filed: 04/09/22 11:40> Medications Administered Discontinued Medications Generic Name Dose Route Start Last Admin Trade Name Freq PRN Reason Stop Dose Admin Sodium Chloride 1,000 mls @ 999 mls/hr 04/09/22 12:00 04/09/22 15:29 Ns IV 04/09/22 13:00 Infused .Q1H1M LEXIS Infusion Iohexol 100 ml 04/09/22 13:43 04/09/22 13:44 Iohexol 350 Mg/Ml 100 Ml Infus..Btl IV 04/09/22 13:44 85 ml ONCE ONE Administration Ketorolac Tromethamine 30 mg 04/09/22 15:22 04/09/22 15:28 Ketorolac Tromethamine 30 Mg/Ml Vial IVPUSH 04/09/22 15:23 30 mg ONCE ONE Administration <Nadine Jorgensen CNP - Last Filed: 04/09/22 17:13> Discharge Plan Discharge Clinical Impression: Abdominal pain <Susan Oglesby NP - Last Filed: 04/09/22 11:40> Patient Disposition: Home, Self-Care <Susan Oglesby NP - Last Filed: 04/09/22 11:40> Instructions: Abdominal Pain (ED) <Susan Oglesby NP - Last Filed: 04/09/22 11:40> Additional Instructions: Please return to the emergency department with any new or worsening symptoms or concerns. If you develop worsening of your pain this should be re-evaluated. Otherwise, please follow-up with your primary care provider within 3 days. You can take ibuprofen 200 mg, 3 tablets (600mg) every 6-8 hours as needed for pain, in addition to Tylenol 500 mg, 2 tablets (1,000mg) every 4-6 hours as needed for pain, but not to exceed 3 doses daily (3,000mg).? <Susan Oglesby NP - Last Filed: 04/09/22 11:40> Prescriptions: No Action dexamethasone [Decadron] 6 mg tablet 6 mg PO DAILY Qty: 8 0RF metformin 500 mg tablet 500 mg PO DAILY Qty: 30 0RF famotidine [Pepcid] 20 mg tablet 20 mg PO DAILY Qty: 30 0RF (DME) blood-glucose meter [FreeStyle Lite Meter] Kit See Rx Instructions .ROUTE .MEDSUPPLY Qty: 1 0RF Rx Instructions: As directed (DME) lancets [FreeStyle Lancets] 28 gauge misc See Rx Instructions .ROUTE .MEDSUPPLY Qty: 100 0RF Rx Instructions: As directed (DME) FreeStyle Lite Strips Strip See Rx Instructions .ROUTE .MEDSUPPLY Qty: 10 0RF Rx Instructions: As directed <Susan Oglesby NP - Last Filed: 04/09/22 11:40> Referrals: Dayna Sharma MD [Primary Care Provider] - <Susan Oglesby NP - Last Filed: 04/09/22 11:40>
[2022-04-09 12:08] LABS: MANUAL DIFF FLAG NO
[2022-04-09] MEDS: 0.9 % Sodium Chloride 1,000 ML 999 ML IV (12:08)
[2022-04-09 12:09] VITALS: RESP 16
[2022-04-09 12:10] LABS: Basophils Absolute Auto 0.1 X10*3/uL (0.0-0.2); Basophils Percent Auto 0.5 % (0-2); Eosinophils Absolute Auto 0.1 X10*3/uL (0.0-0.4); Eosinophils Percent Auto 0.7 % (0-4); Hematocrit 40.3 % (37.0-47.0); Imm Gran Abs Auto 0.04 X10*3/uL (0.00-0.03); Imm Gran Pct Auto 0.3 % (0.0-0.4); Lymphocytes Absolute Auto 2.9 X10*3/uL (1.2-4.9); Lymphocytes Percent Auto 23.9 % (20-40); Mean Corpuscular HGB Conc 32.3 g/dl (31.0-35.0); Mean Corpuscular Hemoglobin 25.9 pg (27.0-33.0); Mean Corpuscular Volume 80.3 fL (80.0-98.0); Mean Platelet Volume 9.7 fL (9.4-12.3); Monocytes Absolute Auto 0.7 X10*3/uL (0.1-1.2); Monocytes Percent Auto 5.3 % (2-11); Neutrophils Absolute Auto 8.4 x10*3/uL (2.0-8.3); Neutrophils Percent Auto 69.3 % (45-73); Platelet Count 324 X10*3/uL (160-400); Red Blood Count 5.02 X10*6/uL (4.20-5.50); Red Cell Distribution Width 15.4 % (11.0-16.0); White Blood Count 12.2 X10*3/uL (4.8-10.8)
--- OUTSIDE RECORDS SUMMARY | 2022-04-09 12:11 | XMS_ITS | Continuity of Care Document ---
:1990 Author Organization [facility] ic Address [address] [place] [address]- Care Team Providers Name Role Phone Gonzales Alfonso MD, Dayna Primary Care Physician Encounter [facility] [place] Date(s): 02/18/20 - 06/11/[address] [address]- Attending Physician: Not on Staff, Attending MD Admitting Physician: Kanchan Carlson CNM Allergies, Adverse Reactions, Alerts Substance Reaction Severity Status NKA Active Immunizations Given and Recorded Vaccine Date Status Refusal Reason tetanus/diphtheria/pertussis, acel(Tdap) 04/14/20 Given tetanus/diphtheria/pertussis, acel(Tdap) 09/26/12 Given influenza virus vaccine, inactivated 12/26/19 Given influenza virus vaccine, inactivated1 12/06/12 Given 1Admin Note: vis given, dated 09/14/2012 Medications aspirin 81 mg oral delayed release tablet 2 tablet = 162 mg, By Mouth, Daily, # 180 tablet, 3 Refills, Maintenance, 12/26/19 13:53:00 EST, CR Tablet, [id number], 165, cm, 12/26/19 13:14:00 EST, Height Start Date: 12/26/19 Stop Date: 12/20/20 Status: OrderedFREE STYLE LITE GLUCOSE METER FREE STYLE LITE GLUCOSE METER, See Instructions, # 1 each, Refills 0, Tot. Refills 0, Maintenance, ONE EACH;monitor glucose during , 12/04/19 8:22:00 EDT, Compound, 165, cm, 11/15/19 14:03:00 EDT, Height Start Date: 12/04/19 Status: OrderedFREE STYLE LITE LANCETS FREE STYLE LITE LANCETS, See Instructions, # 200 each, Refills 5, Tot. Refills 5, Maintenance, ICD -10 Code E119; glucose monitoring 4 times per day, TEST BLOOD GLUCOSE QID FOR GESTATIONAL DIABETES, 12/04/19 8:22:00 EDT, Compound, 165, cm, 11/15/19 14... Start Date: 12/04/19 Status: OrderedFREE STYLE LITE STRIPS FREE STYLE LITE STRIPS, See Instructions, # 200 each, Refills 5, Tot. Refills 5, Maintenance, ICD-10CODE: E119 GLUCOSE CHECK (4) FOUR TIMES PER DAY, 12/04/19 8:22:00 EDT, Compound, 165, cm, 11/15/19 14:03:00 EDT, Height Start Date: 12/04/19 Status: OrderedInsulin Lispro KwikPen 100 units/mL injectable solution = 8 units, Subcutaneous Infusion, 3 times a day before meals, rotate injection sites, # 10 mL, 5 Refills, Maintenance, 02/25/20 14:16:00 EST, [id number], Partial fill upon patient request if the prescription is for a schedule II opioid drug.,... Start Date: 02/25/20 Status: OrderedLantus Solostar Pen 100 units/mL subcutaneous solution = 26 units, Subcutaneous Injection, Daily at bedtime, rotate injection sites, # 10 mL, 5 Refills, Maintenance, 02/25/20 14:16:00 EST, Solution, [id number], Partial fill upon patient request if the prescription is for a schedule II opioid drug.... Start Date: 02/25/20 Status: OrderedPen [place], 31 G x 8 mm BD Ultra Fine III See Instructions, # 300 each, Refills 5, Tot. Refills 5, Maintenance, use as directed with Lantus and Lispro pens for Gestational Diabetes Mellitus, 02/25/20 15:58:00 EST, Supply, 165, cm, 02/18/20 12:59:00 EST, Height Start Date: 02/25/20 Stop Date: 08/18/21 Status: OrderedPrenatabs Rx oral tablet 1 tablet, By Mouth, Daily, # 30 tablet, 11 Refills, Maintenance, 02/18/20 13:27:00 EST, Tablet, [facility]/pharmacy #[id number], Partial fill upon patient request if the prescription is for a schedule II opioid drug., 1 tablet By Mouth Daily, 165, cm, 02/18/20 12:... Start Date: 02/18/20 Status: OrderedPrenatal Multivitamins with Folic Acid 1 mg oral tablet 1 tablet, By Mouth, Daily, # 30 tablet, 8 Refills, Maintenance, 11/14/19 17:21:00 EDT, Tablet, [facility]/pharmacy #[id number], 1 tablet By Mouth Daily, 165, cm, 09/30/19 8:18:00 EDT, Height Start Date: 11/14/19 Status: Ordered Problem List Condition Effective Dates Status Health Status Informant Gestational diabetes(Confirmed) Active H/O Irregular menses(Confirmed) Active Severe obesity (BMI >= 40)(Confirmed) Active Maternal varicella, Active non-immune(Confirmed) Velamentous insertion of umbilical Active cord(Confirmed) Social History Social History Type Response Smoking Status Never (less than 100 in life time) entered on: 09/30/19 Sex Female
--- OUTSIDE RECORDS SUMMARY | 2022-04-09 12:11 | XMS_ITS | Continuity of Care Document ---
:1990 Author Organization [facility] Address [address] [place] [address]- Care Team Providers Name Role Phone Not on Staff, PCP Primary Care Physician Unavailable [place] [facility] [place] Date(s): 08/10/21 - 09/09/[address] [address] Attending Physician: Randy Brower Admitting Physician: Randy Brower Referring Physician: Randy Brower Allergies, Adverse Reactions, Alerts No Known Allergies Immunizations Given and Recorded Vaccine Date Status Refusal Reason tetanus/diphtheria/pertussis, acel(Tdap) 04/14/20 Given tetanus/diphtheria/pertussis, acel(Tdap) 09/26/12 Given influenza virus vaccine, inactivated 12/26/19 Given influenza virus vaccine, inactivated1 12/06/12 Given 1Admin Note: vis given, dated 09/14/2012 Medications acetaminophen 325 mg oral tablet 650 mg, By Mouth, Every 4 hours, PRN, # 60 tablet, Refills 0, Tot. Refills 0, Maintenance, Pain , Mild, 06/22/20 6:55:00 EDT, Route to Pharmacy Electronically, [facility]/pharmacy #[id number], Partial fill upon patient request if the prescription is for a schedule... Start Date: 06/22/20 Status: Orderedaspirin 81 mg oral delayed release tablet 2 tablet = 162 mg, By Mouth, Daily, # 180 tablet, 3 Refills, Maintenance, 12/26/19 13:53:00 EST, CR Tablet, [facility] #[id number], 165, cm, 12/26/19 13:14:00 EST, Height Start Date: 12/26/19 Stop Date: 12/20/20 Status: Ordereddocusate sodium 100 mg oral capsule 100 mg, 1, capsule, By Mouth, 2 times a day, # 60 capsule, Refills 0, Tot. Refills 0, Maintenance, 06/22/20 6:55:00 EDT, Route to Pharmacy Electronically, [facility]/pharmacy #[id number], Partial fill upon patient request if the prescription is for a schedule II o... Start Date: 06/22/20 Status: Orderedibuprofen 800 mg oral tablet 800 mg, 1, tablet, By Mouth, Every 8 hours, PRN, # 60 tablet, Refills 0, Tot. Refills 0, Maintenance, Pain , Moderate, 06/22/20 6:55:00 EDT, Route to Pharmacy Electronically, [facility]/pharmacy #[id number], Partial fill upon patient request if the prescription is... Start Date: 06/22/20 Status: Ordered Problem List Condition Effective Dates Status Health Status Informant macrosomia in Active (Confirmed) Gestational diabetes(Confirmed) Active Obesity in (Confirmed) Active Maternal varicella, Active non-immune(Confirmed) Velamentous insertion of umbilical Active cord(Confirmed) Social History Social History Type Response Smoking Status Never (less than 100 in life time) entered on: 09/30/19 Sex Female
--- OUTSIDE RECORDS SUMMARY | 2022-04-09 12:12 | XMS_ITS | Continuity of Care Document ---
:1990 Author Organization [facility] ic Address [address] [place] [address]- Care Team Providers Name Role Phone Not on Staff, PCP Primary Care Physician Unavailable Encounter [facility] [place] Date(s): 07/21/21 - 09/09/[address] [address] Attending Physician: Kanchan Carlson CNM Admitting Physician: Kanchan Carlson CNM Allergies, Adverse Reactions, Alerts No Known Allergies [...] 06/22/20 6:55:00 EDT, Route to Pharmacy Electronically, [facility]/pharmacy #[id number], Partial fill upon patient request if the prescription is for a schedule... Start Date: 06/22/20 Status: Orderedaspirin 81 mg oral delayed release tablet 2 tablet = 162 mg, By Mouth, Daily, # 180 tablet, 3 Refills, Maintenance, 12/26/19 13:53:00 EST, CR Tablet, [facility]/pharmacy #[id number], 165, cm, 12/26/19 13:14:00 EST, Height Start Date: 12/26/19 Stop Date: 12/20/20 Status: Ordereddocusate sodium 100 mg oral capsule 100 mg, 1, capsule, By Mouth, 2 times a day, # 60 capsule, Refills 0, Tot. Refills 0, Maintenance, 06/22/20 6:55:00 EDT, Route to Pharmacy Electronically, [facility]/pharmacy #[id number], Partial fill upon patient request if the prescription is for a schedule II o... Start Date: 06/22/20 Status: Orderedibuprofen 800 mg oral tablet 800 mg, 1, tablet, By Mouth, Every 8 hours, PRN, # 60 tablet, Refills 0, Tot. Refills 0, Maintenance, Pain , Moderate, 06/22/20 6:55:00 EDT, Route to Pharmacy Electronically, [facility]/pharmacy #[id number], Partial fill upon patient request if [...]
--- OUTSIDE RECORDS SUMMARY | 2022-04-09 12:12 | XMS_ITS | Continuity of Care Document ---
:1990 Author Organization [facility] ic Address [address] [place] [address]- Care Team Providers Name Role Phone Gonzales Alfonso MD, Dayna Primary Care Physician [phone] Encounter [facility] [place] Date(s): 07/29/20 - 09/04/[address] [address] Attending Physician: Not on Staff, Attending MD Allergies, Adverse Reactions, Alerts Substance Reaction Severity [...] 06/22/20 6:55:00 EDT, Route to Pharmacy Electronically, [facility]/pharmacy #[id number], Partial fill upon patient request [...] 06/22/20 6:55:00 EDT, Route to Pharmacy Electronically, [facility]/pharmacy #[id number], Partial fill upon patient request if the prescription is for a schedule II o... Start Date: 06/22/20 Status: Orderedibuprofen 800 mg oral tablet 800 mg, 1, tablet, By Mouth, Every 8 hours, PRN, # 60 tablet, Refills 0, Tot. Refills 0, Maintenance, Pain , Moderate, 06/22/20 6:55:00 EDT, Route to Pharmacy Electronically, [facility]/pharmacy #[id number], Partial fill upon patient request [...]
--- OUTSIDE RECORDS SUMMARY | 2022-04-09 12:12 | XMS_ITS | Continuity of Care Document ---
:1990 Author Organization [facility] ic Address [address] [place] [address]- Care Team Providers Name Role Phone Not on Staff, PCP Primary Care Physician Unavailable En[place] [facility] [place] Date(s): 03/16/21 - 07/14/[address] [address]- Attending Physician: Not on Staff, Attending MD Allergies, Adverse Reactions, Alerts No Known Allergies [...] 06/22/20 6:55:00 EDT, Route to Pharmacy Electronically, [facility]/pharmacy #[id number], Partial fill upon patient request if the prescription is for a schedule... Start Date: 06/22/20 Status: Orderedaspirin 81 mg oral delayed release tablet 2 tablet = 162 mg, By Mouth, Daily, # 180 tablet, 3 Refills, Maintenance, 12/26/19 13:53:00 EST, CR Tablet, [facility]/pharmacy #[id number], 165, cm, 12/26/19 13:14:00 EST, Height Start Date: 12/26/19 Stop Date: 12/20/20 Status: Ordereddocusate sodium 100 mg oral capsule 100 mg, 1, capsule, By Mouth, 2 times a day, # 60 capsule, Refills 0, Tot. Refills 0, Maintenance, 06/22/20 6:55:00 EDT, Route to Pharmacy Electronically, [facility]/pharmacy #[id number], Partial fill upon patient request if the prescription is for a schedule II o... Start Date: 06/22/20 Status: Orderedibuprofen 800 mg oral tablet 800 mg, 1, tablet, By Mouth, Every 8 hours, PRN, # 60 tablet, Refills 0, Tot. Refills 0, Maintenance, Pain , Moderate, 06/22/20 6:55:00 EDT, Route to Pharmacy Electronically, [facility]/pharmacy #[id number], Partial fill upon patient request if [...]
--- OUTSIDE RECORDS SUMMARY | 2022-04-09 12:12 | XMS_ITS | Continuity of Care Document ---
:1990 Author Organization [facility] ic Address [address] [place] [address]- Care Team Providers Name Role Phone Gonzales Alfonso MD, Dayna Primary Care Physician Encounter [facility] [place] Date(s): 02/17/20 - 03/18/[address] [address]- Allergies, Adverse Reactions, Alerts Substance Reaction Severity Status NKA Active Immunizations Given and Recorded Vaccine Date Status Refusal Reason influenza virus vaccine, inactivated 12/26/19 Given influenza virus vaccine, inactivated1 12/06/12 Given tetanus/diphtheria/pertussis, acel(Tdap) 09/26/12 Given 1Admin Note: vis given, dated 09/14/2012 [...] opioid drug.... Start Date: 02/25/20 Status: OrderedPen [place], 31 G x 8 mm BD Ultra [...] 11 Refills, Maintenance, 02/18/20 13:27:00 EST, Tablet, [id number], Partial fill upon patient request if the prescription is for a schedule II opioid drug., 1 tablet By Mouth Daily, 165, cm, 02/18/20 12:... Start Date: 02/18/20 Status: OrderedPrenatal Multivitamins with Folic Acid 1 mg oral tablet 1 tablet, By Mouth, Daily, # 30 tablet, 8 Refills, Maintenance, 11/14/19 17:21:00 EDT, Tablet, [id number], 1 tablet By Mouth Daily, 165, [...]
--- OUTSIDE RECORDS SUMMARY | 2022-04-09 12:12 | XMS_ITS | Continuity of Care Document ---
:1990 Author Organization [facility] ic Address [address] [place] [address]- Care Team Providers Name Role Phone Gonzales Alfonso MD, Dayna Primary Care Physician Encounter [facility] [place] Date(s): 04/14/20 - 07/23/[address] [address] Attending Physician: Not on Staff, Attending MD [...] 06/22/20 6:55:00 EDT, Route to Pharmacy Electronically, [facility]/pharmacy #[id number], Partial fill upon patient request if the prescription is for a schedule... Start Date: 06/22/20 Status: Orderedaspirin 81 mg oral delayed release tablet 2 tablet = 162 mg, By Mouth, Daily, # 180 tablet, 3 Refills, Maintenance, 12/26/19 13:53:00 EST, CR Tablet, [facility]/pharmacy #[id number], 165, cm, 12/26/19 13:14:00 EST, Height Start Date: 12/26/19 Stop Date: 12/20/20 Status: Ordereddocusate sodium 100 mg oral capsule 100 mg, 1, capsule, By Mouth, 2 times a day, # 60 capsule, Refills 0, Tot. Refills 0, Maintenance, 06/22/20 6:55:00 EDT, Route to Pharmacy Electronically, [facility]/pharmacy #[id number], Partial fill upon patient request if the prescription is for a schedule II o... Start Date: 06/22/20 Status: Orderedibuprofen 800 mg oral tablet 800 mg, 1, tablet, By Mouth, Every 8 hours, PRN, # 60 tablet, Refills 0, Tot. Refills 0, Maintenance, Pain , Moderate, 06/22/20 6:55:00 EDT, Route to Pharmacy Electronically, [facility]/pharmacy #[id number], Partial fill upon patient request if [...]
--- OUTSIDE RECORDS SUMMARY | 2022-04-09 12:12 | XMS_ITS | Continuity of Care Document ---
:1990 Author Organization [facility] Address [address] [place] [address]- Care Team Providers Name Role Phone Dayna Sharma MD Primary Care Physician Encounter [facility] [place] Date(s): 05/28/20 - 05/28/[address] [email or web address] Discharge Disposition: A-D/C Home Attending Physician: Shruti Ulloa MD Admitting Physician: Shruti Ulloa MD Referring Physician: Xiomy Naqvi MD Allergies, Adverse Reactions, Alerts Substance Reaction [...] opioid drug.... Start Date: 02/25/20 Status: OrderedPen [place], 31 G x 8 mm BD Ultra [...] 11 Refills, Maintenance, 02/18/20 13:27:00 EST, Tablet, [facility]/pharmacy #[id number], Partial fill upon patient request if the prescription is for a schedule II opioid drug., 1 tablet By Mouth Daily, 165, cm, 02/18/20 12:... Start Date: 02/18/20 Status: OrderedPrenatal Multivitamins with Folic Acid 1 mg oral tablet 1 tablet, By Mouth, Daily, # 30 tablet, 8 Refills, Maintenance, 11/14/19 17:21:00 EDT, Tablet, [facility]/pharmacy #[id number], 1 tablet By Mouth Daily, 165, [...]
--- OUTSIDE RECORDS SUMMARY | 2022-04-09 12:12 | XMS_ITS | Continuity of Care Document ---
:1990 Author Organization [facility] ic Address [address] [place] [address]- Care Team Providers Name Role Phone Not on Staff, PCP Primary Care Physician Unavailable Encounter [facility] Date(s): 06/17/21 - 07/21/[address] [address] Attending Physician: Not on Staff, Attending [...] 06/22/20 6:55:00 EDT, Route to Pharmacy Electronically, [facility]/pharmacy #[id number], Partial fill upon patient request if the prescription is for a schedule... Start Date: 06/22/20 Status: Orderedaspirin 81 mg oral delayed release tablet 2 tablet = 162 mg, By Mouth, Daily, # 180 tablet, 3 Refills, Maintenance, 12/26/19 13:53:00 EST, CR Tablet, [facility]/pharmacy #[id number], 165, cm, 12/26/19 13:14:00 EST, Height Start Date: 12/26/19 Stop Date: 12/20/20 Status: Ordereddocusate sodium 100 mg oral capsule 100 mg, 1, capsule, By Mouth, 2 times a day, # 60 capsule, Refills 0, Tot. Refills 0, Maintenance, 06/22/20 6:55:00 EDT, Route to Pharmacy Electronically, [facility]/pharmacy #[id number], Partial fill upon patient request if the prescription is for a schedule II o... Start Date: 06/22/20 Status: Orderedibuprofen 800 mg oral tablet 800 mg, 1, tablet, By Mouth, Every 8 hours, PRN, # 60 tablet, Refills 0, Tot. Refills 0, Maintenance, Pain , Moderate, 06/22/20 6:55:00 EDT, Route to Pharmacy Electronically, [facility]/pharmacy #[id number], Partial fill upon patient request [...]
--- OUTSIDE RECORDS SUMMARY | 2022-04-09 12:12 | XMS_ITS | Continuity of Care Document ---
:1990 Author Organization [facility] ic Address [address] [place] [address]- Care Team Providers Name Role Phone Gonzales Alfonso MD, Dayna Primary Care Physician Encounter [facility] [place] Date(s): 06/05/20 - 07/11/[address] [address] Attending Physician: Shruti Ulloa MD Admitting Physician: [...]
--- OUTSIDE RECORDS SUMMARY | 2022-04-09 12:12 | XMS_ITS | Continuity of Care Document ---
:1990 Author Organization [facility] ic Address [address] [place] [address]- Care Team Providers Name Role Phone Gonzales Alfonso MD, Dayna Primary Care Physician Encounter [facility] [place] Date(s): 05/12/20 - 06/17/[address] [address]- Attending Physician: Not on Staff, Attending MD [...] Infusion, 3 times a day before meals, 8 units at breakfast, 12 units at lunch and dinner, # 10 mL, 5 Refills, Maintenance, 02/25/20 14:16:00 EST, [id number], Partial fill upon patient request if the prescription is for... Start Date: 02/25/20 Status: OrderedLantus Solostar Pen 100 units/mL subcutaneous solution = 32 units, Subcutaneous Injection, Daily at bedtime, rotate injection sites, # 10 mL, 5 Refills, Maintenance, 02/25/20 14:16:00 EST, Solution, [id number], Partial fill upon patient request if the prescription is for a schedule II opioid drug.... Start Date: 02/25/20 Status: OrderedPen [place], 31 G x 8 mm BD Ultra [...] 8 Refills, Maintenance, 11/14/19 17:21:00 EDT, Tablet, [facility]/pharmacy #[id number], 1 tablet By Mouth Daily, 165, [...]
--- OUTSIDE RECORDS SUMMARY | 2022-04-09 12:12 | XMS_ITS | Continuity of Care Document ---
:1990 Author Organization [facility] Address [address] [place] [address]- Care Team Providers Name Role Phone Not on Staff, PCP Primary Care Physician Unavailable [place] [facility] [place] 12/25/[place] - 04/11/[address] [address]- Attending Physician: Not on Staff, Attending MD [...]
--- OUTSIDE RECORDS SUMMARY | 2022-04-09 12:12 | XMS_ITS | Continuity of Care Document ---
:1990 Author Organization [facility] ic Address [address] [place] [address]- Care Team Providers Name Role Phone Gonzales Alfonso MD, Dayna Primary Care Physician [phone] Encounter [facility] [place] Date(s): 01/17/20 - 02/23/[address] [address]- Attending Physician: Not on Staff, Attending MD [...] 14:03:00 EDT, Height Start Date: 12/04/19 Status: OrderedmetFORMIN 500 mg oral tablet 2 tablet = 1,000 mg, By Mouth, Daily at bedtime, # 90 tablet, 1 Refills, Maintenance, 12/16/19 15:04:00 EDT, Tablet, [id number], 165, cm, 12/09/19 10:21:00 EDT, Height Start Date: 12/16/19 Status: OrderedPrenatabs Rx oral tablet 1 tablet, [...] >= 40)(Confirmed) Active Maternal varicella, Active non-immune(Confirmed) Social History Social History Type Response Smoking Status Never (less than 100 in life time) entered on: 09/30/19 Sex
--- OUTSIDE RECORDS SUMMARY | 2022-04-09 12:12 | XMS_ITS | Continuity of Care Document ---
:1990 Author Organization [facility] ic Address [address] [place] [address]- Care Team Providers Name Role Phone Dayna Sharma MD Primary Care Physician [phone] [place] [facility] [id number] Date(s): 12/16/19 - 04/01/[address] [address]- Attending Physician: Not on Staff, Attending MD [...] opioid drug.... Start Date: 02/25/20 Status: OrderedPen [place], 31 G x 8 mm BD Ultra [...]
--- OUTSIDE RECORDS SUMMARY | 2022-04-09 12:12 | XMS_ITS | Continuity of Care Document ---
:1990 Author Organization [facility] ic Address [address] [place] [address]- Care Team Providers Name Role Phone Gonzales Alfonso MD, Dayna Primary Care Physician [place] [facility] [place] Date(s): 09/23/20 - 01/13/[address] [address] Attending Physician: Not on Staff, Attending [...] 06/22/20 6:55:00 EDT, Route to Pharmacy Electronically, [facility]/pharmacy #[id number], Partial fill upon patient request if the prescription is for a schedule... Start Date: 06/22/20 Status: Orderedaspirin 81 mg oral delayed release tablet 2 tablet = 162 mg, By Mouth, Daily, # 180 tablet, 3 Refills, Maintenance, 12/26/19 13:53:00 EST, CR Tablet, [facility]/pharmacy #[id number], 165, cm, 12/26/19 13:14:00 EST, Height Start Date: 12/26/19 Stop Date: 12/20/20 Status: Ordereddocusate sodium 100 mg oral capsule 100 mg, 1, capsule, By Mouth, 2 times a day, # 60 capsule, Refills 0, Tot. Refills 0, Maintenance, 06/22/20 6:55:00 EDT, Route to Pharmacy Electronically, [facility]/pharmacy #[id number], Partial fill upon patient request if the prescription is for a schedule II o... Start Date: 06/22/20 Status: Orderedibuprofen 800 mg oral tablet 800 mg, 1, tablet, By Mouth, Every 8 hours, PRN, # 60 tablet, Refills 0, Tot. Refills 0, Maintenance, Pain , Moderate, 06/22/20 6:55:00 EDT, Route to Pharmacy Electronically, [facility]/pharmacy #[id number], Partial fill upon patient request [...]
--- OUTSIDE RECORDS SUMMARY | 2022-04-09 12:12 | XMS_ITS | Continuity of Care Document ---
:1990 Author Organization [facility] Address [address] [place] [address]- Care Team Providers Name Role Phone Gonzales Alfonso MD, Dayna Primary Care Physician Encounter [facility] Date(s): 12/26/19 - 01/31/[address] [address] Attending Physician: Aniket Hartley DO Admitting Physician: Aniket Hartley DO Referring Physician: Ele Alejo DO Allergies, Adverse Reactions, Alerts Substance Reaction Severity [...] 1 Refills, Maintenance, 12/16/19 15:04:00 EDT, Tablet, [facility]/pharmacy #[id number], 165, cm, 12/09/19 10:21:00 EDT, Height Start Date: 12/16/19 Status: OrderedPrenatal Multivitamins with Folic Acid 1 [...]
--- OUTSIDE RECORDS SUMMARY | 2022-04-09 12:12 | XMS_ITS | Continuity of Care Document ---
:1990 Author Organization [facility] ic Address [address] [place] [address]- Care Team Providers Name Role Phone Gonzales Alfonso MD, Dayna Primary Care Physician [place] [facility] [place] Date(s): 11/24/20 - 02/10/[address] [address]- Attending Physician: Not on Staff, Attending MD [...] 06/22/20 6:55:00 EDT, Route to Pharmacy Electronically, [facility]/pharmacy #[id number], Partial fill upon patient request if the prescription is for a schedule... Start Date: 06/22/20 Status: Orderedaspirin 81 mg oral delayed release tablet 2 tablet = 162 mg, By Mouth, Daily, # 180 tablet, 3 Refills, Maintenance, 12/26/19 13:53:00 EST, CR Tablet, [facility]/pharmacy #[id number], 165, cm, 12/26/19 13:14:00 EST, Height Start Date: 12/26/19 Stop Date: 12/20/20 Status: Ordereddocusate sodium 100 mg oral capsule 100 mg, 1, capsule, By Mouth, 2 times a day, # 60 capsule, Refills 0, Tot. Refills 0, Maintenance, 06/22/20 6:55:00 EDT, Route to Pharmacy Electronically, [facility]/pharmacy #[id number], Partial fill upon patient request if the prescription is for a schedule II o... Start Date: 06/22/20 Status: Orderedibuprofen 800 mg oral tablet 800 mg, 1, tablet, By Mouth, Every 8 hours, PRN, # 60 tablet, Refills 0, Tot. Refills 0, Maintenance, Pain , Moderate, 06/22/20 6:55:00 EDT, Route to Pharmacy Electronically, [facility]/pharmacy #[id number], Partial fill upon patient request [...]
--- OUTSIDE RECORDS SUMMARY | 2022-04-09 12:12 | XMS_ITS | Continuity of Care Document ---
:1990 Author Organization [facility] Address [address] [place] [address]- Care Team Providers Name Role Phone Dayna Sharma MD Primary Care Physician En[place] [facility] [place] Date(s): 06/18/20 - 06/18/[address] [address] Discharge Disposition: A-D/C Home Attending Physician: Shruti [...] opioid drug.... Start Date: 02/25/20 Status: OrderedPen [place], 31 G x 8 mm BD Ultra [...] 11 Refills, Maintenance, 02/18/20 13:27:00 EST, Tablet, [facility]/pharmacy #[id number], Partial fill upon patient request if the prescription is for a schedule II opioid drug., 1 tablet By Mouth Daily, 165, cm, 02/18/20 12:... Start Date: 02/18/20 Status: OrderedPrenatal Multivitamins with Folic Acid 1 mg oral tablet 1 tablet, By Mouth, Daily, # 30 tablet, 8 Refills, Maintenance, 11/14/19 17:21:00 EDT, Tablet, [facility]/pharmacy #[id number], 1 tablet By Mouth Daily, 165, [...]
--- OUTSIDE RECORDS SUMMARY | 2022-04-09 12:12 | XMS_ITS | Continuity of Care Document ---
:1990 Author Organization [facility] ic Address [address] [place] [address]- Care Team Providers Name Role Phone Gonzales Alfonso MD, Dayna Primary Care Physician Encounter [facility] [place] Date(s): 05/12/20 - 06/17/[address] [address]- Attending Physician: Nicole Schmitz DO Admitting Physician: Nicole Schmitz DO Referring Physician: Xiomy Naqvi MD Allergies, Adverse [...] opioid drug.... Start Date: 02/25/20 Status: OrderedPen [place], 31 G x 8 mm BD Ultra [...] Refills, Maintenance, 02/18/20 13:27:00 EST, Tablet, [facility]/pharmacy #[id number], Partial fill upon patient request if the prescription is for a schedule II opioid drug., 1 tablet By Mouth Daily, 165, cm, 02/18/20 12:... Start Date: 02/18/20 Status: OrderedPrenatal Multivitamins with Folic Acid 1 mg oral tablet 1 tablet, By Mouth, Daily, # 30 tablet, 8 Refills, Maintenance, 11/14/19 17:21:00 EDT, Tablet, [facility]/pharmacy #[id number], 1 tablet By Mouth Daily, [...]
--- OUTSIDE RECORDS SUMMARY | 2022-04-09 12:12 | XMS_ITS | Continuity of Care Document ---
:1990 Author Organization [facility] ic Address [address] [place] [address]- Care Team Providers Name Role Phone Dayna Sharma MD Primary Care Physician [phone] Encounter [facility] [place] [facility] R [id number] Date(s): 12/26/19 - 02/01/[address] [address]- Attending Physician: Not on Staff, Attending MD [...] 1 Refills, Maintenance, 12/16/19 15:04:00 EDT, Tablet, [facility]/pharmacy #[id number], 165, cm, 12/09/19 10:21:00 EDT, Height [...]
--- OUTSIDE RECORDS SUMMARY | 2022-04-09 12:12 | XMS_ITS | Continuity of Care Document ---
:1990 Author Organization [facility] Address [address] [place] [address]- Care Team Providers Name Role Phone Dayna Sharma MD Primary Care Physician [phone] Encounter [facility] [place] Date(s): 06/04/20 - 06/04/[address] [address] Discharge Disposition: A-D/C Home Attending Physician: Shruti [...] opioid drug.... Start Date: 02/25/20 Status: OrderedPen [place], 31 G x 8 mm BD Ultra [...] 11 Refills, Maintenance, 02/18/20 13:27:00 EST, Tablet, [facility]/pharmacy #[id number], Partial fill upon patient request if the prescription is for a schedule II opioid drug., 1 tablet By Mouth Daily, 165, cm, 02/18/20 12:... Start Date: 02/18/20 Status: OrderedPrenatal Multivitamins with Folic Acid 1 mg oral tablet 1 tablet, By Mouth, Daily, # 30 tablet, 8 Refills, Maintenance, 11/14/19 17:21:00 EDT, Tablet, [facility]/pharmacy #[id number], 1 tablet By Mouth Daily, [...]
--- OUTSIDE RECORDS SUMMARY | 2022-04-09 12:12 | XMS_ITS | Continuity of Care Document ---
:1990 Author Organization [facility] ic Address [address] [place] [address]- Care Team Providers Name Role Phone Dayna Sharma MD Primary Care Physician [place] [facility] [id number] Date(s): 10/08/19 - 02/05/[address] [address]- Attending Physician: Not on Staff, Attending MD [...] 1 Refills, Maintenance, 12/16/19 15:04:00 EDT, Tablet, [facility]/pharmacy #[id number], 165, cm, 12/09/19 10:21:00 EDT, [...]
--- OUTSIDE RECORDS SUMMARY | 2022-04-09 12:12 | XMS_ITS | Continuity of Care Document ---
:1990 Author Organization [facility] Address [address] [place] [address]- Care Team Providers Name Role Phone Gonzales Alfonso MD, Dayna Primary Care Physician Encounter [facility] [place] Date(s): 01/02/20 - 02/01/20 [facility] [address] [place] [address] Attending Physician: Randy Brower Admitting Physician: AdmtrRandy Referring Physician: Admtr, Ar8 Allergies, Adverse Reactions, Alerts Substance Reaction Severity [...] 1 Refills, Maintenance, 12/16/19 15:04:00 EDT, Tablet, [facility]/pharmacy #[id number], 165, cm, 12/09/19 10:21:00 EDT, Height [...]
--- OUTSIDE RECORDS SUMMARY | 2022-04-09 12:12 | XMS_ITS | Continuity of Care Document ---
:1990 Author Organization [facility] ic Address [address] [place] [address]- Care Team Providers Name Role Phone Gonzales Alfonso MD, Dayna Primary Care Physician Encounter [facility] [place] Date(s): 06/22/20 - 07/24/[address] [address] Attending Physician: Not on Staff, Attending [...] 06/22/20 6:55:00 EDT, Route to Pharmacy Electronically, [facility]/pharmacy #[id number], Partial fill upon patient request if [...] 06/22/20 6:55:00 EDT, Route to Pharmacy Electronically, [facility]/pharmacy #[id number], Partial fill upon patient request if the prescription is for a schedule II o... Start Date: 06/22/20 Status: Orderedibuprofen 800 mg oral tablet 800 mg, 1, tablet, By Mouth, Every 8 hours, PRN, # 60 tablet, Refills 0, Tot. Refills 0, Maintenance, Pain , Moderate, 06/22/20 6:55:00 EDT, Route to Pharmacy Electronically, [facility]/pharmacy #[id number], Partial fill upon patient request if [...]
--- OUTSIDE RECORDS SUMMARY | 2022-04-09 12:12 | XMS_ITS | Continuity of Care Document ---
:1990 Author Organization [facility] ic Address [address] [place] [address]- Care Team Providers Name Role Phone Gonzales Alfonso MD, Dayna Primary Care Physician [phone] Encounter [facility] [place] Date(s): 06/16/20 - 07/22/[address] [address] Attending Physician: Nicole Schmitz DO Admitting Physician: Nicole Schmitz DO Referring Physician: Xiomy Naqiv MD Allergies, Adverse Reactions, Alerts Substance Reaction [...] 6:55:00 EDT, Route to Pharmacy Electronically, [facility]/pharmacy #[id number], Partial fill upon patient request if the prescription is for a schedule... Start Date: 06/22/20 Status: Orderedaspirin 81 mg oral delayed release tablet 2 tablet = 162 mg, By Mouth, Daily, # 180 tablet, 3 Refills, Maintenance, 12/26/19 13:53:00 EST, CR Tablet, [facility]/pharmacy #[id number], 165, cm, 12/26/19 13:14:00 EST, Height Start Date: 12/26/19 Stop Date: 12/20/20 Status: Ordereddocusate sodium 100 mg oral capsule 100 mg, 1, capsule, By Mouth, 2 times a day, # 60 capsule, Refills 0, Tot. Refills 0, Maintenance, 06/22/20 6:55:00 EDT, Route to Pharmacy Electronically, [facility]/pharmacy #[id number], Partial fill upon patient request if the prescription is for a schedule II o... Start Date: 06/22/20 Status: Orderedibuprofen 800 mg oral tablet 800 mg, 1, tablet, By Mouth, Every 8 hours, PRN, # 60 tablet, Refills 0, Tot. Refills 0, Maintenance, Pain , Moderate, 06/22/20 6:55:00 EDT, Route to Pharmacy Electronically, [facility]/pharmacy #[id number], Partial fill upon patient request if [...]
--- OUTSIDE RECORDS SUMMARY | 2022-04-09 12:12 | XMS_ITS | Continuity of Care Document ---
:1990 Author Organization [facility] ic Address [address] [place] [address]- Care Team Providers Name Role Phone Dayna Sharma MD Primary Care Physician Encounter [facility] [place] Date(s): 05/19/20 - 06/28/[address] [address] Attending Physician: Shruti Ulloa MD Admitting Physician: Shruti Ulloa MD Allergies, Adverse Reactions, Alerts Substance Reaction [...] 06/22/20 6:55:00 EDT, Route to Pharmacy Electronically, [facility]/pharmacy #[id number], Partial fill upon patient request if the prescription is for a schedule... Start Date: 06/22/20 Status: Orderedaspirin 81 mg oral delayed release tablet 2 tablet = 162 mg, By Mouth, Daily, # 180 tablet, 3 Refills, Maintenance, 12/26/19 13:53:00 EST, CR Tablet, [facility]/pharmacy #[id number], 165, cm, 12/26/19 13:14:00 EST, Height Start Date: 12/26/19 Stop Date: 12/20/20 Status: Ordereddocusate sodium 100 mg oral capsule 100 mg, 1, capsule, By Mouth, 2 times a day, # 60 capsule, Refills 0, Tot. Refills 0, Maintenance, 06/22/20 6:55:00 EDT, Route to Pharmacy Electronically, [facility]/pharmacy #[id number], Partial fill upon patient request if the prescription is for a schedule II o... Start Date: 06/22/20 Status: Orderedibuprofen 800 mg oral tablet 800 mg, 1, tablet, By Mouth, Every 8 hours, PRN, # 60 tablet, Refills 0, Tot. Refills 0, Maintenance, Pain , Moderate, 06/22/20 6:55:00 EDT, Route to Pharmacy Electronically, [facility]/pharmacy #[id number], Partial fill upon patient request if [...]
--- OUTSIDE RECORDS SUMMARY | 2022-04-09 12:12 | XMS_ITS | Continuity of Care Document ---
:1990 Author Organization [facility] ic Address [address] [place] [address]- Care Team Providers Name Role Phone Gonzales Alfonso MD, Dayna Primary Care Physician Encounter [facility] [place] Date(s): 05/20/20 - 06/19/[address] [address]- Allergies, Adverse Reactions, Alerts Substance Reaction Severity [...] opioid drug.... Start Date: 02/25/20 Status: OrderedPen [place], 31 G x 8 mm BD Ultra [...]
--- OUTSIDE RECORDS SUMMARY | 2022-04-09 12:12 | XMS_ITS | Continuity of Care Document ---
:1990 Author Organization [facility] ic Address [address] [place] [address]- Care Team Providers Name Role Phone Gonzales Alfonso MD, Dayna Primary Care Physician [place] [facility] [place] Date(s): 06/24/20 - 07/24/[address] [address] Attending Physician: AdmRandy navarro Admitting Physician: AdmtrRandy Referring Physician: Admtr, Ar8 [...] 06/22/20 6:55:00 EDT, Route to Pharmacy Electronically, [facility]/pharmacy #[id number], Partial fill upon patient request if the prescription is for a schedule... Start Date: 06/22/20 Status: Orderedaspirin 81 mg oral delayed release tablet 2 tablet = 162 mg, By Mouth, Daily, # 180 tablet, 3 Refills, Maintenance, 12/26/19 13:53:00 EST, CR Tablet, [facility]/pharmacy #[id number], 165, cm, 12/26/19 13:14:00 EST, Height Start Date: 12/26/19 Stop Date: 12/20/20 Status: Ordereddocusate sodium 100 mg oral capsule 100 mg, 1, capsule, By Mouth, 2 times a day, # 60 capsule, Refills 0, Tot. Refills 0, Maintenance, 06/22/20 6:55:00 EDT, Route to Pharmacy Electronically, [facility]/pharmacy #[id number], Partial fill upon patient request if the prescription is for a schedule II o... Start Date: 06/22/20 Status: Orderedibuprofen 800 mg oral tablet 800 mg, 1, tablet, By Mouth, Every 8 hours, PRN, # 60 tablet, Refills 0, Tot. Refills 0, Maintenance, Pain , Moderate, 06/22/20 6:55:00 EDT, Route to Pharmacy Electronically, [facility]/pharmacy #[id number], Partial fill upon patient request [...]
--- OUTSIDE RECORDS SUMMARY | 2022-04-09 12:12 | XMS_ITS | Continuity of Care Document ---
:1990 Author Organization [facility] ic Address [address] [place] [address]- Care Team Providers Name Role Phone Gonzales Alfonso MD, Dayna Primary Care Physician [phone] [place] [facility] [place] 08/26/19 - 09/25/[address] [address] [facility] Allergies, Adverse Reactions, Alerts Substance Reaction Severity Status NKA Active Immunizations Given and Recorded Vaccine Date Status Refusal Reason influenza virus vaccine, inactivated1 12/06/12 Given tetanus/diphtheria/pertussis, acel(Tdap) 09/26/12 Given 1Admin Note: vis given, dated 09/14/2012 Medications Plan B One-Step 1.5 mg oral tablet 1 tablet = 1.5 mg, By Mouth, Once, # 1 tablet, 0 Refills, Soft Stop, 03/25/14 16:37:17, Tablet, 1 tablet By Mouth Once Start Date: 03/25/14 Status: OrderedPrenatal Multivitamins with Folic Acid 0.4 mg oral tablet 1 tablet, By Mouth, Daily, # 30 tablet, 0 Refills, Maintenance, 07/02/17 2:12:09 EDT, Tablet Start Date: 07/02/17 Stop Date: 08/01/17 Status: Ordered
--- OUTSIDE RECORDS SUMMARY | 2022-04-09 12:12 | XMS_ITS | Continuity of Care Document ---
:1990 Author Organization [facility] ic Address [address] [place] [address]- Care Team Providers Name Role Phone Gonzales Alfonso MD, Dayna Primary Care Physician Encounter [facility] [place] Date(s): 03/17/20 - 04/23/[address] [address]- Attending Physician: Not on Staff, Attending MD [...] opioid drug.... Start Date: 02/25/20 Status: OrderedPen [place], 31 G x 8 mm BD Ultra [...] Refills, Maintenance, 11/14/19 17:21:00 EDT, Tablet, [facility]/pharmacy #[id number], 1 tablet By Mouth Daily, [...]
--- OUTSIDE RECORDS SUMMARY | 2022-04-09 12:12 | XMS_ITS | Continuity of Care Document ---
:1990 Author Organization [facility] ic Address [address] [place] [address]- Care Team Providers Name Role Phone Gonzales Alfonso MD, Dayna Primary Care Physician [phone] [place] [facility] [place] [facility] [place] 08/05/20 - 09/04/[address] [address] Attending Physician: AdmRandy navarro Admitting Physician: AdmtrRandy [...] 06/22/20 6:55:00 EDT, Route to Pharmacy Electronically, [facility]/pharmacy #[id number], Partial fill upon patient request if the prescription is for a schedule... Start Date: 06/22/20 Status: Orderedaspirin 81 mg oral delayed release tablet 2 tablet = 162 mg, By Mouth, Daily, # 180 tablet, 3 Refills, Maintenance, 12/26/19 13:53:00 EST, CR Tablet, [facility]/pharmacy #[id number], 165, cm, 12/26/19 13:14:00 EST, Height Start Date: 12/26/19 Stop Date: 12/20/20 Status: Ordereddocusate sodium 100 mg oral capsule 100 mg, 1, capsule, By Mouth, 2 times a day, # 60 capsule, Refills 0, Tot. Refills 0, Maintenance, 06/22/20 6:55:00 EDT, Route to Pharmacy Electronically, [facility]/pharmacy #[id number], Partial fill upon patient request if the prescription is for a schedule II o... Start Date: 06/22/20 Status: Orderedibuprofen 800 mg oral tablet 800 mg, 1, tablet, By Mouth, Every 8 hours, PRN, # 60 tablet, Refills 0, Tot. Refills 0, Maintenance, Pain , Moderate, 06/22/20 6:55:00 EDT, Route to Pharmacy Electronically, [facility]/pharmacy #[id number], Partial fill upon patient request if [...]
--- OUTSIDE RECORDS SUMMARY | 2022-04-09 12:12 | XMS_ITS | Continuity of Care Document ---
:1990 Author Organization [facility] ic Address [address] [place] [address]- Care Team Providers Name Role Phone Gonzales Alfonso MD, Dayna Primary Care Physician [phone] [place] [facility] [place](s): 04/14/20 - 07/09/[address] [address] Attending Physician: Not on Staff, Attending MD [...] 06/22/20 6:55:00 EDT, Route to Pharmacy Electronically, [facility]/pharmacy #[id number], Partial fill upon patient request [...] 06/22/20 6:55:00 EDT, Route to Pharmacy Electronically, [facility]/pharmacy #[id number], Partial fill upon patient request if the prescription is for a schedule II o... Start Date: 06/22/20 Status: Orderedibuprofen 800 mg oral tablet 800 mg, 1, tablet, By Mouth, Every 8 hours, PRN, # 60 tablet, Refills 0, Tot. Refills 0, Maintenance, Pain , Moderate, 06/22/20 6:55:00 EDT, Route to Pharmacy Electronically, [facility]/pharmacy #[id number], Partial fill upon patient request [...]
--- OUTSIDE RECORDS SUMMARY | 2022-04-09 12:12 | XMS_ITS | Continuity of Care Document ---
:1990 Author Organization [facility] ic Address [address] [place] [address]- Care Team Providers Name Role Phone Dayna Sharma MD Primary Care Physician [place] [facility] [place] Date(s): 12/26/19 - 02/23/[address] [address]- Attending Physician: Not on Staff, Attending MD Referring Physician: Dayna Sharma MD Allergies, Adverse Reactions, Alerts Substance Reaction [...]
--- OUTSIDE RECORDS SUMMARY | 2022-04-09 12:12 | XMS_ITS | Continuity of Care Document ---
:1990 Author Organization [facility] ic Address [address] [place] [address]- Care Team Providers Name Role Phone Not on Staff, PCP Primary Care Physician Unavailable [place] [facility] [place] Date(s): 06/17/21 - 07/17/[address] [address] Allergies, Adverse Reactions, Alerts No Known Allergies [...] 06/22/20 6:55:00 EDT, Route to Pharmacy Electronically, [facility]/pharmacy #[id number], Partial fill upon patient request if the prescription is for a schedule... Start Date: 06/22/20 Status: Orderedaspirin 81 mg oral delayed release tablet 2 tablet = 162 mg, By Mouth, Daily, # 180 tablet, 3 Refills, Maintenance, 12/26/19 13:53:00 EST, CR Tablet, [facility]/pharmacy #[id number], 165, cm, 12/26/19 13:14:00 EST, Height Start Date: 12/26/19 Stop Date: 12/20/20 Status: Ordereddocusate sodium 100 mg oral capsule 100 mg, 1, capsule, By Mouth, 2 times a day, # 60 capsule, Refills 0, Tot. Refills 0, Maintenance, 06/22/20 6:55:00 EDT, Route to Pharmacy Electronically, [facility]/pharmacy #[id number], Partial fill upon patient request if the prescription is for a schedule II o... Start Date: 06/22/20 Status: Orderedibuprofen 800 mg oral tablet 800 mg, 1, tablet, By Mouth, Every 8 hours, PRN, # 60 tablet, Refills 0, Tot. Refills 0, Maintenance, Pain , Moderate, 06/22/20 6:55:00 EDT, Route to Pharmacy Electronically, [facility]/pharmacy #[id number], Partial fill upon patient request [...]
--- OUTSIDE RECORDS SUMMARY | 2022-04-09 12:12 | XMS_ITS | Continuity of Care Document ---
:1990 Author Organization [facility] ic Address [address] [place] [address]- Care Team Providers Name Role Phone Gonzales Alfonso MD, Dayna Primary Care Physician [place] [facility] [place](s): 06/09/20 - 08/06/[address] [address] Attending Physician: Not on Staff, Attending [...] 06/22/20 6:55:00 EDT, Route to Pharmacy Electronically, [facility]/pharmacy #[id number], Partial fill upon patient request if the prescription is for a schedule... Start Date: 06/22/20 Status: Orderedaspirin 81 mg oral delayed release tablet 2 tablet = 162 mg, By Mouth, Daily, # 180 tablet, 3 Refills, Maintenance, 12/26/19 13:53:00 EST, CR Tablet, [facility]/pharmacy #[id number], 165, cm, 12/26/19 13:14:00 EST, Height Start Date: 12/26/19 Stop Date: 12/20/20 Status: Ordereddocusate sodium 100 mg oral capsule 100 mg, 1, capsule, By Mouth, 2 times a day, # 60 capsule, Refills 0, Tot. Refills 0, Maintenance, 06/22/20 6:55:00 EDT, Route to Pharmacy Electronically, [facility]/pharmacy #[id number], Partial fill upon patient request if the prescription is for a schedule II o... Start Date: 06/22/20 Status: Orderedibuprofen 800 mg oral tablet 800 mg, 1, tablet, By Mouth, Every 8 hours, PRN, # 60 tablet, Refills 0, Tot. Refills 0, Maintenance, Pain , Moderate, 06/22/20 6:55:00 EDT, Route to Pharmacy Electronically, [facility]/pharmacy #[id number], Partial fill upon [...]
--- OUTSIDE RECORDS SUMMARY | 2022-04-09 12:12 | XMS_ITS | Continuity of Care Document ---
:1990 Author Organization [facility] Address [address] [place] [address]- Care Team Providers Name Role Phone Dayna Sharma MD Primary Care Physician Encounter [facility] [place] Date(s): 06/19/20 - 06/22/[address] [address] Discharge Disposition: A-D/C Home Attending Physician: Fercho Garza MD Admitting Physician: Fercho Garza MD Referring Physician: Fang Partida MD Allergies, Adverse Reactions, Alerts Substance Reaction [...] 06/22/20 6:55:00 EDT, Route to Pharmacy Electronically, [facility]/pharmacy #[id number], Partial fill upon patient request if the prescription is for a schedule... Start Date: 06/22/20 Status: OrderedAcetaminophen Tablet 650 mg, Tablet, By Mouth, Every 4 hours, PRN for Pain , Mild, (1-3), may give 325mg per patient preference and re-dose with 325mg within 4 hours, if needed. Patient should only receive a total of 650mgof Acetaminophen every 4 hours., Routine, 06/20... Start Date: 06/20/20 Stop Date: 06/22/20 Status: Discontinuedaspirin 81 mg oral delayed release tablet 2 tablet = 162 mg, By Mouth, Daily, # 180 tablet, 3 Refills, Maintenance, 12/26/19 13:53:00 EST, CR Tablet, [facility]/pharmacy #[id number], 165, cm, 12/26/19 13:14:00 EST, Height Start Date: 12/26/19 Stop Date: 12/20/20 Status: Ordereddocusate sodium 100 mg oral capsule 100 mg, 1, capsule, By Mouth, 2 times a day, # 60 capsule, Refills 0, Tot. Refills 0, Maintenance, 06/22/20 6:55:00 EDT, Route to Pharmacy Electronically, [facility]/pharmacy #[id number], Partial fill upon patient request if the prescription is for a schedule II o... Start Date: 06/22/20 Status: Orderedibuprofen 800 mg oral tablet 800 mg, 1, tablet, By Mouth, Every 8 hours, PRN, # 60 tablet, Refills 0, Tot. Refills 0, Maintenance, Pain , Moderate, 06/22/20 6:55:00 EDT, Route to Pharmacy Electronically, [facility]/pharmacy #[id number], Partial fill upon patient request if the prescription is... Start Date: 06/22/20 Status: OrderedIbuprofen Tablet 800 mg, Tablet, By Mouth, Every 8 hours, PRN for Pain , Moderate, (4-6), may give 400mg per patient preference and re-dose with 400mg within 8 hours if needed. Patient should only receive a total of 800mg of Ibuprofen every 8 hours., Routine, ... Start Date: 06/20/20 Stop Date: 06/22/20 Status: Discontinued Problem List Condition Effective Dates Status Health Status Informant macrosomia in Active (Confirmed) Gestational diabetes(Confirmed) Active Obesity in (Confirmed) Active Maternal varicella, Active non-immune(Confirmed) Velamentous insertion of umbilical Active cord(Confirmed) Vital Signs Most recent to oldest [Reference 1 2 3 Range]: Height 165 cm 165 cm 165 cm (06/22/20 7:45 AM) (06/22/20 12:01 AM) (06/21/20 4:00 PM) Weight 106.5 kg (06/19/20 8:42 AM) Oxygen Saturation [94-100 %] 97 % 97 % 96 % (06/22/20 7:45 AM) (06/22/20 12:01 AM) (06/21/20 4:00 PM) Pulse Rate [55-90 bpm] 86 bpm 81 bpm 57 bpm (06/22/20 7:45 AM) (06/22/20 12:01 AM) (06/21/20 4:00 PM) Body Mass Index [18.5-24.99] 39.12 *>HHI* (06/19/20 8:42 AM) Blood Pressure [90-138/55-84 mm 129/62 mm Hg 123/77 mm Hg 131/81 mm Hg Hg] (06/22/20 7:45 AM) (06/22/20 12:01 AM) (06/21/20 4:00 PM) Respiratory Rate [16-30 br/min] 16 br/min 16 br/min 22 br/min (06/22/20 8:58 AM) (06/22/20 8:57 AM) (06/22/20 7:45 A M) Temperature [96.8-100.4 DegF] 98.1 DegF 97.8 DegF 97 .9 DegF (06/22/20 7:45 AM) (06/22/20 12:01 AM) (06/21/20 4:00 PM) Mode of Delivery (Oxygen) Room air Room air Room a ir (06/22/20 12:01 AM) (06/21/20 4:00 PM) (06/21/20 8:00 AM) Blood pressure sites Arm, right Arm, right Arm, right (06/22/20 12:01 AM) (06/21/20 4:00 PM) (06/21/20 8:00 AM) Temperature Route Oral Oral Oral (06/22/20 7:45 AM) (06/22/20 12:01 AM) (06/21/20 4:00 PM) Dry Weight 106.5 kg (06/19/20 8:42 AM) Social History Social History Type Response Smoking Status Never (less than 100 in life time) entered on: 09/30/19 Sex Female
--- OUTSIDE RECORDS SUMMARY | 2022-04-09 12:12 | XMS_ITS | Continuity of Care Document ---
:1990 Author Organization [facility] Address [address] [place] [address]- Care Team Providers Name Role Phone Dayna Sharma MD Primary Care Physician [facility] [id number] Date(s): 06/19/20 - 07/25/[address] [address] Attending Physician: Shruti Ulloa MD [...] 06/22/20 6:55:00 EDT, Route to Pharmacy Electronically, [facility]/pharmacy #[id number], Partial fill upon patient request if the prescription is for a schedule... Start Date: 06/22/20 Status: Orderedaspirin 81 mg oral delayed release tablet 2 tablet = 162 mg, By Mouth, Daily, # 180 tablet, 3 Refills, Maintenance, 12/26/19 13:53:00 EST, CR Tablet, [facility]/pharmacy #[id number], 165, cm, 12/26/19 13:14:00 EST, Height Start Date: 12/26/19 Stop Date: 12/20/20 Status: Ordereddocusate sodium 100 mg oral capsule 100 mg, 1, capsule, By Mouth, 2 times a day, # 60 capsule, Refills 0, Tot. Refills 0, Maintenance, 06/22/20 6:55:00 EDT, Route to Pharmacy Electronically, [facility]/pharmacy #[id number], Partial fill upon patient request if the prescription is for a schedule II o... Start Date: 06/22/20 Status: Orderedibuprofen 800 mg oral tablet 800 mg, 1, tablet, By Mouth, Every 8 hours, PRN, # 60 tablet, Refills 0, Tot. Refills 0, Maintenance, Pain , Moderate, 06/22/20 6:55:00 EDT, Route to Pharmacy Electronically, [facility]/pharmacy #[id number], Partial fill upon patient [...]
--- OUTSIDE RECORDS SUMMARY | 2022-04-09 12:12 | XMS_ITS | Continuity of Care Document ---
:1990 Author Organization [facility] ic Address [address] [place] [address]- Care Team Providers Name Role Phone Gonzales Alfonso MD, Dayna Primary Care Physician [phone] Encounter [facility] [place] Date(s): 09/21/20 - 12/20/[address] [address] Attending Physician: Not on Staff, Attending [...] 06/22/20 6:55:00 EDT, Route to Pharmacy Electronically, [facility]/pharmacy #[id number], Partial fill upon patient request if the prescription is for a schedule... Start Date: 06/22/20 Status: Orderedaspirin 81 mg oral delayed release tablet 2 tablet = 162 mg, By Mouth, Daily, # 180 tablet, 3 Refills, Maintenance, 12/26/19 13:53:00 EST, CR Tablet, [facility]/pharmacy #[id number], 165, cm, 12/26/19 13:14:00 EST, Height Start Date: 12/26/19 Stop Date: 12/20/20 Status: Ordereddocusate sodium 100 mg oral capsule 100 mg, 1, capsule, By Mouth, 2 times a day, # 60 capsule, Refills 0, Tot. Refills 0, Maintenance, 06/22/20 6:55:00 EDT, Route to Pharmacy Electronically, [facility]/pharmacy #[id number], Partial fill upon patient request if the prescription is for a schedule II o... Start Date: 06/22/20 Status: Orderedibuprofen 800 mg oral tablet 800 mg, 1, tablet, By Mouth, Every 8 hours, PRN, # 60 tablet, Refills 0, Tot. Refills 0, Maintenance, Pain , Moderate, 06/22/20 6:55:00 EDT, Route to Pharmacy Electronically, [facility]/pharmacy #[id number], Partial fill upon patient request if [...]
--- OUTSIDE RECORDS SUMMARY | 2022-04-09 12:12 | XMS_ITS | Continuity of Care Document ---
:1990 Author Organization [facility] ic Address [address] [place] [address]- Care Team Providers Name Role Phone Gonzales Alfonso MD, Dayna Primary Care Physician Encounter [facility] [place] Date(s): 05/12/20 - 06/11/[address] [address]- Allergies, Adverse Reactions, Alerts Substance Reaction Severity [...] opioid drug.... Start Date: 02/25/20 Status: OrderedPen [place], 31 G x 8 mm BD Ultra [...]
--- OUTSIDE RECORDS SUMMARY | 2022-04-09 12:12 | XMS_ITS | Continuity of Care Document ---
:1990 Author Organization [facility] Address [address] [place] [address]- Care Team Providers Name Role Phone Gonzales Alfonso MD, Dayna Primary Care Physician En[place] [facility] [place] Date(s): 02/27/20 - 03/28/20 [facility] [address] [place] [id number] Attending Physician: Randy Brower Admitting Physician: AdmtrRandy Referring Physician: AdmtrRandy Allergies, Adverse Reactions, Alerts Substance Reaction Severity [...] opioid drug.... Start Date: 02/25/20 Status: OrderedPen [place], 31 G x 8 mm BD Ultra [...]
--- OUTSIDE RECORDS SUMMARY | 2022-04-09 12:13 | XMS_ITS | Continuity of Care Document ---
:1990 Author Organization [facility] ic Address [address] [place] [address]- Care Team Providers Name Role Phone Gonzales Alfonso MD, Dayna Primary Care Physician Encounter [facility] [place] Date(s): 04/14/20 - 07/30/[address] [address]- Attending Physician: Not on Staff, Attending MD [...] 06/22/20 6:55:00 EDT, Route to Pharmacy Electronically, [facility]/pharmacy #[id number], Partial fill upon patient request if the prescription is for a schedule... Start Date: 06/22/20 Status: Orderedaspirin 81 mg oral delayed release tablet 2 tablet = 162 mg, By Mouth, Daily, # 180 tablet, 3 Refills, Maintenance, 12/26/19 13:53:00 EST, CR Tablet, [facility]/pharmacy #[id number], 165, cm, 12/26/19 13:14:00 EST, Height Start Date: 12/26/19 Stop Date: 12/20/20 Status: Ordereddocusate sodium 100 mg oral capsule 100 mg, 1, capsule, By Mouth, 2 times a day, # 60 capsule, Refills 0, Tot. Refills 0, Maintenance, 06/22/20 6:55:00 EDT, Route to Pharmacy Electronically, [facility]/pharmacy #[id number], Partial fill upon patient request if the prescription is for a schedule II o... Start Date: 06/22/20 Status: Orderedibuprofen 800 mg oral tablet 800 mg, 1, tablet, By Mouth, Every 8 hours, PRN, # 60 tablet, Refills 0, Tot. Refills 0, Maintenance, Pain , Moderate, 06/22/20 6:55:00 EDT, Route to Pharmacy Electronically, [facility]/pharmacy #[id number], Partial fill upon [...]
--- OUTSIDE RECORDS SUMMARY | 2022-04-09 12:13 | XMS_ITS | Continuity of Care Document ---
:1990 Author Organization [facility] ic Address [address] [place] [address]- Care Team Providers Name Role Phone Gonzales Alfonso MD, Dayna Primary Care Physician [phone] Encounter [facility] [place] Date(s): 11/04/19 - 12/04/[address] [address] [facility] Allergies, Adverse Reactions, Alerts Substance Reaction Severity Status NKA Active Immunizations Given and Recorded Vaccine Date Status Refusal Reason influenza virus vaccine, inactivated1 12/06/12 Given tetanus/diphtheria/pertussis, acel(Tdap) 09/26/12 Given 1Admin Note: vis given, dated 09/14/2012 Medications FREE STYLE LITE GLUCOSE METER FREE STYLE LITE [...] 14:03:00 EDT, Height Start Date: 12/04/19 Status: OrderedPrenatal Multivitamins with Folic Acid 0.4 mg oral tablet 1 tablet, By Mouth, Daily, # 30 tablet, 0 Refills, Maintenance, 07/02/17 2:12:09 EDT, Tablet Start Date: 07/02/17 Stop Date: 08/01/17 Status: OrderedPrenatal Multivitamins with Folic Acid 1 mg oral tablet 1 tablet, By Mouth, Daily, # 30 tablet, 8 Refills, Maintenance, 11/14/19 17:21:00 EDT, Tablet, [facility]/pharmacy #[id number], 1 tablet By Mouth Daily, 165, cm, 09/30/19 8:18:00 EDT, Height Start Date: 11/14/19 Status: Ordered Problem List Condition Effective Dates Status Health Status Informant Negative screen 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
--- OUTSIDE RECORDS SUMMARY | 2022-04-09 12:13 | XMS_ITS | Continuity of Care Document ---
:1990 Author Organization [facility] ic Address [address] [place] [address]- Care Team Providers Name Role Phone Gonzales Alfonso MD, Dayna Primary Care Physician Encounter [facility] Date(s): 11/14/19 - 12/14/[address] [address]- [facility] Allergies, Adverse Reactions, Alerts Substance Reaction [...] 8 Refills, Maintenance, 11/14/19 17:21:00 EDT, Tablet, [facility]/pharmacy #[id number], 1 tablet By Mouth Daily, 165, [...]
--- OUTSIDE RECORDS SUMMARY | 2022-04-09 12:13 | XMS_ITS | Continuity of Care Document ---
:1990 Author Organization [facility] ic Address [address] [place] [address]- Care Team Providers Name Role Phone Gonzales Alfonso MD, Dayna Primary Care Physician [phone] Encounter [facility] [place] Date(s): 06/22/20 - 08/26/[address] [address] Attending Physician: Not on Staff, [...] 06/22/20 6:55:00 EDT, Route to Pharmacy Electronically, [facility]/pharmacy #[id number], Partial fill upon patient request [...] 06/22/20 6:55:00 EDT, Route to Pharmacy Electronically, [facility]/pharmacy #[id number], Partial fill upon patient request if the prescription is for a schedule II o... Start Date: 06/22/20 Status: Orderedibuprofen 800 mg oral tablet 800 mg, 1, tablet, By Mouth, Every 8 hours, PRN, # 60 tablet, Refills 0, Tot. Refills 0, Maintenance, Pain , Moderate, 06/22/20 6:55:00 EDT, Route to Pharmacy Electronically, [facility]/pharmacy #[id number], Partial fill upon patient request [...]
[2022-04-09 12:26] LABS: Lipase 15 U/L (8-78)
[2022-04-09 12:30] LABS: Alanine Aminotransferase 24 U/L (0-31); Albumin Level 4.4 g/dL (3.5-5.0); Alkaline Phosphatase 76 U/L (39-117); Anion Gap 15 (12-20); Aspartate Amino Transferase 16 U/L (5-31); Bilirubin Direct 0.3 mg/dL (0.0-0.5); Bilirubin Total 1.3 mg/dL (0.0-1.0); Blood Urea Nitrogen 8 mg/dL (9-16); Calcium 9.5 mg/dL (8.4-10.2); Carbon Dioxide 24 mmol/L (22-29); Chloride 104 mmol/L (96-108); Creatinine Clr Calc Pharmacy 155.6; Estimated Glomerular Filt Rate > 60; Glucose Random 118 mg/dL (60-115); Potassium 3.8 mmol/L (3.3-5.1); Sodium 139 mmol/L (135-145); Total Protein 7.2 g/dL (6.5-8.0)
--- NOTE | 2022-04-09 12:31 | PC.NURSE ---
Alert and oriented, resp even and unlabored. Reporting RLQ pain that started last night as generalized abd pain. States it's worse with movement and inspiration. IV established.
[2022-04-09 12:34] LABS: Influenza A PCR NEGATIVE (Negative); Influenza B PCR NEGATIVE (Negative); Resp Syncy Virus RNA Qual PCR NEGATIVE (Negative); SARS COV2 PCR INHOUSE NEGATIVE (Negative)
[2022-04-09 13:26] LABS: Appearance Urine Cloudy; Color Urine Yellow; Glucose Urine UA Negative (Negative); Leukocyte Esterase Urine Small (1+) (Negative); Nitrite Urine Negative (Negative); UMIC TRIGGER UACC YES; Urine Blood Negative (Negative); Urine Ketones Negative (Negative); Urine Protein Trace mg/dL (Neg-Trace)
[2022-04-09 13:32] LABS: UPreg QC Valid YES; Urine Pregnancy NEGATIVE (NEGATIVE)
[2022-04-09] MEDS: iohexoL 350 MG/ML 100 ML INFUS..BTL IV (13:44)
[2022-04-09 13:45] LABS: Bacteria Urine 1+ (None Seen); Hyaline Casts Urine 0-2 /LPF (0-2); RBC Urine 0-2 /HPF (0-2); UACC Culture Trigger YES
[2022-04-09] MEDS: Ketorolac Tromethamine 30 MG/ML VIAL IVPUSH (15:28)
--- NOTE | 2022-04-09 15:32 | PC.NURSE ---
Pt off to ultrasound
--- NOTE | 2022-04-09 16:00 | PM.CNGS ---
History of Present Illness Consult details Consult date: 04/09/22 Narrative: 31F referred for abdominal pain. She describes onset of abdominal pain on the RLQ starting about 8 pm last night. She says this persisted throughout the night. She does state that this was actually getting better by this morning. She however says that she decided to come to the ED to make sure . She says that her pain had improved markedly even before coming to the ER. She denies any nausea or vomitting. She describes have 4 episodes of loose stools overnight. SHe says she feels well overall. Review of Systems Constitutional: Constitutional: Denies chills and Denies fever(s) Cardiovascular: Cardiovascular: Denies chest pain, Denies dyspnea and Denies dyspnea on exertion Respiratory: Respiratory: Denies cough, Denies dyspnea and Denies dyspnea on exertion Gastrointestinal: Gastrointestinal: Denies hematochezia and Denies change in bowel habits Genitourinary: Genitourinary: Denies hematuria Musculoskeletal: Musculoskeletal: Denies back pain and Denies limited range of motion Neurologic: Denies focal weakness and Denies convulsions Psychiatric: Psychiatric: Denies depression and Denies mood swings [facility] Past Medical History Medical History (Updated 04/09/22 @ 16:55 by Nadine Jorgensen CNP) Abdominal pain PCOS (polycystic ovarian syndrome) Social History Social History Household Members: Spouse and Children Housing: Other Housing Other:: town house Do you presently have visiting nurse or other home services: No Alcohol intake: never Patient Tobacco Use Status: Never used Tobacco Substance Use Type: Marijuana Advance Directives: No Advance Directives Information Provided: No service: No Current occupational status: unemployed Meds Allergies Allergy/AdvReac Type Severity Reaction Status Date / Time No Known Allergies Allergy Verified 04/09/22 12:10 Physical Exam Vital Signs: Vital Signs: Last Vital Signs Temp 98.3 F 04/09/22 11:38 Pulse 80 04/09/22 11:38 Resp 16 04/09/22 12:09 BP 127/73 04/09/22 11:38 Pulse Ox 99 04/09/22 11:38 O2 Del Method 04/09/22 11:38 BMI result Body Mass Index 41.5 Const: Other: morbidly obese General: comfortable and no acute distress Orientation/consciousness: patient oriented x3 Neck: Neck: Yes no lymphadenopathy Resp: Auscultation: clear to auscultation bilaterally Cardio: Rhythm: regular rhythm GI: Other: minimal tenderness to deep palpation RLQ, no guarding or rebound, no Rovsing's sign Palpation (GI): Soft to palpation, nontender and no guarding Neuro: General: patient oriented x3 Results Labs 04/09/22 12:05 04/09/22 12:05 Labs: Abnormal lab results 04/09/22 04/09/22 04/09/22 Range/Units 12:05 12:05 13:11 WBC 12.2 H (4.8-10.8) X10*3/uL MCH 25.9 L (27.0-33.0) pg Abs Immat Gran (auto) 0.04 H (0.00-0.03) X10*3/uL Absolute Neuts (auto) 8.4 H (2.0-8.3) x10*3/uL BUN 8 L (9-16) mg/dL Random Glucose 118 H (60-115) mg/dL Total Bilirubin 1.3 H (0.0-1.0) mg/dL Ur Leukocyte Esterase Small (1+) H (Negative) Urine WBC 11-20 H (0-5) /HPF Short CBC 04/09/22 Range/Units 12:05 WBC 12.2 H (4.8-10.8) X10*3/uL Hgb 13.0 (12.0-16.0) g/dl Hct 40.3 (37.0-47.0) % Plt Count 324 (160-400) X10*3/uL BMP 04/09/22 12:05 Sodium 139 Potassium 3.8 Chloride 104 Carbon Dioxide 24 BUN 8 L Creatinine 0.67 Calcium 9.5 Liver Function 04/09/22 Range/Units 12:05 Total Bilirubin 1.3 H (0.0-1.0) mg/dL Direct Bilirubin 0.3 (0.0-0.5) mg/dL AST 16 (5-31) U/L ALT 24 (0-31) U/L Alkaline Phosphatase 76 (39-117) U/L Albumin 4.4 (3.5-5.0) g/dL Urine 04/09/22 04/09/22 Range/Units 13:11 13:11 Urine Color Yellow Urine Appearance Cloudy Urine pH 6.0 (5.0-9.0) Ur Specific Archer 1.020 (1.005-1.025) Urine Protein Trace (Neg-Trace) mg/dL Urine Glucose (UA) Negative (Negative) mg/dL Urine Test NEGATIVE (NEGATIVE) All other labs normal. Laboratory Results WBC 12.2 X10*3/uL (4.8-10.8) H 04/09/22 12:05 RBC 5.02 X10*6/uL (4.20-5.50) 04/09/22 12:05 Hgb 13.0 g/dl (12.0-16.0) 04/09/22 12:05 Hct 40.3 % (37.0-47.0) 04/09/22 12:05 MCV 80.3 fL (80.0-98.0) 04/09/22 12:05 MCH 25.9 pg (27.0-33.0) L 04/09/22 12:05 MCHC 32.3 g/dl (31.0-35.0) 04/09/22 12:05 RDW 15.4 % (11.0-16.0) 04/09/22 12:05 Plt Count 324 X10*3/uL (160-400) 04/09/22 12:05 MPV 9.7 fL (9.4-12.3) 04/09/22 12:05 Immature Gran % (Auto) 0.3 % (0.0-0.4) 04/09/22 12:05 Neut % (Auto) 69.3 % (45-73) 04/09/22 12:05 Lymph % (Auto) 23.9 % (20-40) 04/09/22 12:05 Pepin % (Auto) 5.3 % (2-11) 04/09/22 12:05 Eos % (Auto) 0.7 % (0-4) 04/09/22 12:05 Baso % (Auto) 0.5 % (0-2) 04/09/22 12:05 Lymph # (Auto) 2.9 X10*3/uL (1.2-4.9) 04/09/22 12:05 Pepin # (Auto) 0.7 X10*3/uL (0.1-1.2) 04/09/22 12:05 Eos # (Auto) 0.1 X10*3/uL (0.0-0.4) 04/09/22 12:05 Baso # (Auto) 0.1 X10*3/uL (0.0-0.2) 04/09/22 12:05 Abs Immat Gran (auto) 0.04 X10*3/uL (0.00-0.03) H 04/09/22 12:05 Absolute Neuts (auto) 8.4 x10*3/uL (2.0-8.3) H 04/09/22 12:05 Absolute Nucleated RBC 0.000 X10*3/uL (0.0-0.012) 04/09/22 12:05 Nucleated RBC % (auto) 0.0 /100WBC (0.0-0.2) 04/09/22 12:05 Sodium 139 mmol/L (135-145) 04/09/22 12:05 Potassium 3.8 mmol/L (3.3-5.1) 04/09/22 12:05 Chloride 104 mmol/L (96-108) 04/09/22 12:05 Carbon Dioxide 24 mmol/L (22-29) 04/09/22 12:05 Anion Gap 15 (12-20) 04/09/22 12:05 BUN 8 mg/dL (9-16) L 04/09/22 12:05 Creatinine 0.67 mg/dL (0.5-1.4) 04/09/22 12:05 Estim Creat Clear Calc 155.6 04/09/22 12:05 Estimated GFR > 60 04/09/22 12:05 Random Glucose 118 mg/dL (60-115) H 04/09/22 12:05 Calcium 9.5 mg/dL (8.4-10.2) 04/09/22 12:05 Total Bilirubin 1.3 mg/dL (0.0-1.0) H 04/09/22 12:05 Direct Bilirubin 0.3 mg/dL (0.0-0.5) 04/09/22 12:05 AST 16 U/L (5-31) 04/09/22 12:05 ALT 24 U/L (0-31) 04/09/22 12:05 Alkaline Phosphatase 76 U/L (39-117) 04/09/22 12:05 Total Protein 7.2 g/dL (6.5-8.0) 04/09/22 12:05 Albumin 4.4 g/dL (3.5-5.0) 04/09/22 12:05 Lipase 15 U/L (8-78) 04/09/22 12:05 Urine Color Yellow 04/09/22 13:11 Urine Appearance Cloudy 04/09/22 13:11 Urine pH 6.0 (5.0-9.0) 04/09/22 13:11 Ur Specific Archer 1.020 (1.005-1.025) 04/09/22 13:11 Urine Protein Trace mg/dL (Neg-Trace) 04/09/22 13:11 Urine Glucose (UA) Negative mg/dL (Negative) 04/09/22 13:11 Urine Ketones Negative mg/dL (Negative) 04/09/22 13:11 Urine Blood Negative (Negative) 04/09/22 13:11 Urine Nitrite Negative (Negative) 04/09/22 13:11 Ur Leukocyte Esterase Small (1+) (Negative) H 04/09/22 13:11 Urine RBC 0-2 /HPF (0-2) 04/09/22 13:11 Urine WBC 11-20 /HPF (0-5) H 04/09/22 13:11 Ur Squamous Epith Cells 11-20 /HPF (0-2) 04/09/22 13:11 Urine Bacteria 1+ (None Seen) 04/09/22 13:11 Hyaline Casts 0-2 /LPF (0-2) 04/09/22 13:11 Urine Test NEGATIVE (NEGATIVE) 04/09/22 13:11 Influenza Type A (PCR) NEGATIVE (Negative) 04/09/22 11:49 Influenza Type B (PCR) NEGATIVE (Negative) 04/09/22 11:49 RSV RNA Qual (PCR) NEGATIVE (Negative) 04/09/22 11:49 SARS-CoV-2 RNA (RT-PCR) NEGATIVE (Negative) 04/09/22 11:49 Impressions Abdomen/Pelvis CT 04/09/22 13:53 IMPRESSION: Appendix is mildly dilated measuring 0.8 cm however without periappendiceal inflammatory change, equivocal for appendicitis and correlation with clinical symptoms and labs is recommended. Of note, there is mobile positioning of the cecum and therefore the appendix is relatively midline. A 3 cm intermediate attenuation right ovarian lesion incompletely characterized, though most commonly reflective of a hemorrhagic cyst. Recommend dedicated nonemergent pelvic ultrasound for further evaluation. Hepatic steatosis. Assessment and Plan (1) Abdominal pain: Status: Acute I have reviewed her CT scan, and the appendix is mildly dilated without any inflammatory changes nor appendicolith. The appendix is actually positioned on the midline, and does not appear to be where her tenderness /pain was. She states she actually had been feeling much better already this morning compared to last night. Current exam shows a very benign abdomen. Overall clinical picture does not suggest likelohood of appendicitis. She is comfortable with going home from the ER instead of being observed here in the hospital. Her pain is very minimal at this time. She does have some leukocyte esterase and WBCs in her urine so a UTI is a differential. She also has an ovarian cyst on the right that may be hemorrhagic which can cause some pain as well. Time Spent With Patient Time: Total time managing care of this patient today ____ minutes. Procedures Date of Service Date of Service: 04/09/22
== END 2022-04-09 17:27 | disposition home or self-care (01) ==
PROVIDERS: Nurse Practitioner Family; Emergency Provider Emergency Medicine; PCP Internal Medicine
DX: R10.30 Lower abdominal pain, unspecified (principal); Z20.822 Contact with and (suspected) exposure to COVID-19; Z20.828 Contact with and (suspected) exposure to other viral communicable diseases; E11.9 Type 2 diabetes mellitus without complications; E28.2 Polycystic ovarian syndrome; Z79.84 Long term (current) use of oral hypoglycemic drugs
CPT/HCPCS: 0241U; 36415; 74177; 76830; 76856; 80048; 80076; 81001; 81025; 83690; 85025; 87086; 96361; 96374; 99284; 99285; J1885; Q9967

== ENCOUNTER → 2023-08-14 10:52 | Outpatient (BNVA) | payer OTHER, SELFPAY | PROVIDERS: Visit Provider Physician Assistant Surgical ==

== ENCOUNTER 2023-09-18 14:02 | Outpatient (AMB) | payer OTHER, SELFPAY ==
--- NOTE | 2023-09-18 13:57 | MHC.OFFVISWM ---
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 She heard about our program from her sister. Her goal is to lose weight and achieve a healthy lifestyle. She reports first being concerned about her weight over the last 10 years, highest weight to date was 245. Initial weight on presentation to the Surgical weight loss program on 08/14/2023 was 241 lb with a BMI of 40.1. Current weight is 238.4 pounds with a BMI of 39.7. She has tried multiple methods of weight loss including fad diets without permanent results. She lives with her and 2 kids. 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 She wakes at:?7-8, and goes to bed at?11-12. Dinner is at 5-6. Breakfast: 2 eggs, toast or pancakes AM snack: muffin or cupcake Lunch: skip or leftovers or chicken tenders, fries, grilled cheese PM snack: skip Dinner: rice, pasta, meat, salad After dinner: cake, cupcake, chips, ice cream Other snacks: chocolate Liquids: 96-128 oz water daily, 8 oz coke daily, no juice Alcohol/marijuana/tobacco intake: 3-4 glasses wine on weekends, smoke cannabis daily, edibles once a month, no cigarettes Exercise: none, no home equipment , could join a gym, but would prefer to buy a piece of equiptment. GERD score: 7 ERNESTO score: 7 ESS score: 7 QOL score: 95 [facility] Medical History Abdominal pain PCOS (polycystic ovarian syndrome) Surgical History History of root canal procedure Family History Family/Other No problems noted. Social History Household Members: Spouse and Children Housing: Other Housing Other:: town house Do you presently have visiting nurse or other home services: No Alcohol intake: current Alcohol intake frequency: holidays/special occasions only Alcohol type: wine Patient Tobacco Use Status: Never used Tobacco Substance Use Type: Marijuana service: No Current occupational status: unemployed Telehealth Telehealth Telehealth Platform: Telephone Location of provider rendering services: practice address Location of patient: address on file Patient Identification confirmed using: Name, : Yes Telehealth method: voice only Patient verbally consented to treatment: Yes Patient verbally consented to billing insurance company: Yes Patient informed of any privacy concerns related to visit: Yes Minutes spent on Phone/Video with Pt.: 35 Assessment & Plan Assessment & Plan (1) Morbid obesity: Code(s): E66.01 - Morbid (severe) obesity due to excess calories Category: Medical Plan: This is a?33 yo female who will start our SWL program to prepare for bariatric surgery.? Blood work, CXR, ECG, Abd US and UGI have been ordered. She is being scheduled for initial consultations. She will start SWL classes and watch the first three videos before her next appointment. 1. You have been given a link to our software lynette ([email or web address]) below to generate an individualized nutritional and exercise plan specific for you. Please send me a screenshot of the plans you will generate Meal to include lean meat (beef, fish, pork, turkey, chicken), or belgian yogurt, or egg whites, or beans with a salad with olive oil and fruits (berries, pears, apples, kiwi). Avoid salt, breads, potatoes, rice, pasta, desserts. 2. If you choose shakes, each shake would be drunk slowly, like coffee over a period of 2 hours. 3. If you choose bars, cut each bar in 4 pieces and eat each piece in 30min to make each bar last 2 hours. 4. I emphasized the importance of measuring accurately the food portion and measure it when serving the food on a plate 5. The meal portions include a specific number of forks of meat (protein) and salad. You always eat the meat portion but you can replace up to half of salad/vegetables portion with rice, potatoes or pasta, or a fruit ?if you like. The less you do it the better weight loss will be. 6. One full-size fork is what it can be scooped on the fork without falling aside and not what can be bit with the fork. Use regular forks like those you find in a typical restaurant. 7.? Please send me weight measurements from your body composition scale as soon as possible and then once a week. Always include your diet and exercise plan. The best time to weigh yourself is first thing in the morning after going to the bathroom. 8. The best choice for exercise would be treadmill or elliptical machine 9.?Goal is to lose at least 1.5-2lbs per week, and about 10% before surgery, which is about 24 pounds 10. Please follow the diet plan exactly without any change. If you don't like something about the plan or you feel hungry you need to communicate with me so I can help you revise the plan. My cell phone number to communicate with me by text is [phone] Patient is morbidly obese and is not considered stable at this time.?I spent a total of 70 minutes reviewing/updating records, examining the patient and counseling the patient on weight management as detailed above. Orders: Orders Insulin Today E66.01 - Morbid (severe) obesity due to excess calories Hemoglobin A1c Today E66.01 - Morbid (severe) obesity due to excess calories Complete Blood Count Auto Diff Today E66.01 - Morbid (severe) obesity due to excess calories IRON PROFILE Today E66.01 - Morbid (severe) obesity due to excess calories Comprehensive Met. Panel Today E66.01 - Morbid (severe) obesity due to excess calories Vitamin B12 and Folate Today E66.01 - Morbid (severe) obesity due to excess calories C Reactive Protein Today E66.01 - Morbid (severe) obesity due to excess calories Vitamin A Today E66.01 - Morbid (severe) obesity due to excess calories TSH reflex Free T4 Today E66.01 - Morbid (severe) obesity due to excess calories Ferritin Today E66.01 - Morbid (severe) obesity due to excess calories Vitamin D 25-OH Total Today E66.01 - Morbid (severe) obesity due to excess calories Lipid Panel Today E66.01 - Morbid (severe) obesity due to excess calories Zinc Today E66.01 - Morbid (severe) obesity due to excess calories Vitamin B1 Today E66.01 - Morbid (severe) obesity due to excess calories Referrals Nutrition/Dietitian Referral E66.01 - Morbid (severe) obesity due to excess calories
[2023-09-18 14:03] VITALS: BMI 39.7
== END 2023-09-18 14:43 | disposition home or self-care (01) ==
LOC: HO.HBS 14:02
PROVIDERS: Visit Provider Physician Assistant Surgical
DX: E66.01 Morbid (severe) obesity due to excess calories (principal); Z68.39 Body mass index [BMI] 39.0-39.9, adult
CPT/HCPCS: 99204

== ENCOUNTER → 2023-09-18 14:02 | Outpatient (BNVA) | payer OTHER, SELFPAY | PROVIDERS: Visit Provider Physician Assistant Surgical ==

== ENCOUNTER → 2023-09-26 15:31 | Outpatient (REF) | payer OTHER, SELFPAY ==
--- NOTE | ~2023-09-26 | XR_ITS ---
EXAMINATION: XR CHEST CLINICAL INFORMATION: Preoperative weight management program COMPARISON: 02/25/2021 TECHNIQUE: 2 views of the chest were obtained. FINDINGS: No significant abnormality is noted involving the heart, lungs, mediastinum, bony thorax or soft tissues. XR/XR chest 2V IMPRESSION: Unremarkable examination. Electronically signed by: Flor Calvillo MD 10/24/2023 09:16 AM EDT
--- NOTE | 2023-09-26 15:35 | ECG_ITS ---
Test Reason : morbid obesity Blood Pressure : / mmHG Vent. Rate : 075 BPM Atrial Rate : 075 BPM P-R Int : 132 ms QRS Dur : 094 ms QT Int : 374 ms P-R-T Axes : 030 028 042 degrees QTc Int : 417 ms Normal sinus rhythm Nonspecific T wave abnormality Abnormal ECG No previous ECGs available Referred By: Mikey Hunter Electronically Signed By:ELTON CACERES MD
== END ==
LOC: HO.CARD 15:31
PROVIDERS: Visit Provider Physician Assistant Surgical
DX: E66.01 Morbid (severe) obesity due to excess calories (principal)
CPT/HCPCS: 71046; 93005

== ENCOUNTER → 2023-09-26 15:35 | Outpatient (BNV) | payer OTHER, SELFPAY | PROVIDERS: Visit Provider Internal Medicine Cardiovascular Disease | DX: R94.31 Abnormal electrocardiogram [ECG] [EKG] (principal) | CPT/HCPCS: 93010 ==

== ENCOUNTER 2023-09-29 08:28 | Outpatient (REF) | payer OTHER, SELFPAY ==
[2023-09-29 08:42] LABS: MANUAL DIFF FLAG NO
[2023-09-29 09:22] LABS: Basophils Percent Auto 0.5 % (0-2); Eosinophils Absolute Auto 0.1 X10*3/uL (0.0-0.4); Eosinophils Percent Auto 1.1 % (0-4); Hematocrit 39.9 % (37.0-47.0); Hemoglobin 12.9 g/dl (12.0-16.0); Imm Gran Abs Auto 0.03 X10*3/uL (0.00-0.03); Imm Gran Pct Auto 0.5 % (0.0-0.4); Lymphocytes Percent Auto 30.5 % (20-40); Mean Corpuscular HGB Conc 32.3 g/dl (31.0-35.0); Mean Corpuscular Hemoglobin 26.9 pg (27.0-33.0); Mean Corpuscular Volume 83.3 fL (80.0-98.0); Mean Platelet Volume 10.1 fL (9.4-12.3); Monocytes Absolute Auto 0.4 X10*3/uL (0.1-1.2); Monocytes Percent Auto 6.6 % (2-11); Neutrophils Absolute Auto 4.1 x10*3/uL (2.0-8.3); Neutrophils Percent Auto 60.8 % (45-73); Platelet Count 351 X10*3/uL (160-400); Red Blood Count 4.79 X10*6/uL (4.20-5.50); Red Cell Distribution Width 14.1 % (11.0-16.0); White Blood Count 6.7 X10*3/uL (4.8-10.8)
[2023-09-29 09:30] LABS: Estimated Average Glucose 146 mg/dL; Hemoglobin A1c % 6.7 % (<6.0)
[2023-09-29 09:55] LABS: Alanine Aminotransferase 21 U/L (0-31); Albumin Level 4.5 g/dL (3.5-5.0); Alkaline Phosphatase 75 U/L (39-117); Anion Gap 11 (12-20); Aspartate Amino Transferase 17 U/L (5-31); Bilirubin Total 0.7 mg/dL (0.0-1.0); Blood Urea Nitrogen 9 mg/dL (9-16); C Reactive Protein 1.24 mg/dL (< or = 0.50); Calcium 9.8 mg/dL (8.4-10.2); Carbon Dioxide 25 mmol/L (22-29); Chloride 107 mmol/L (96-108); Cholesterol 142 mg/dL (<200); Estimated Glomerular Filt Rate > 60; Glucose Random 116 mg/dL (60-115); HDL Cholesterol 26 mg/dL (>40); Iron 60 mcg/dL (30-160); LDL Cholesterol Calculated 94 mg/dL (<100); Percent Iron Saturation 19 % (15-50); Potassium 4.3 mmol/L (3.3-5.1); Sodium 139 mmol/L (135-145); Total Iron Binding Capacity 313 mcg/dL (228-428); Total Protein 7.6 g/dL (6.5-8.0); Triglycerides 111 mg/dL (<150); Unsaturated Iron Binding 253 ug/dL
[2023-09-29 10:19] LABS: Ferritin 72 ng/mL (10-122); TSH reflex Free T4 1.83 uIU/mL (0.32-4.0); Vitamin D 25-OH Total 24.2 ng/mL (>30)
[2023-09-29 11:01] LABS: Folate 10.5 ng/mL (> or = 4.0); Vitamin B12 384 pg/mL (200-900)
[2023-09-29 11:03] LABS: Insulin 14 uU/mL (2-29)
[2023-10-03 16:08] LABS: Zinc 77 mcg/dL (60-130)
[2023-10-04 23:28] LABS: Vitamin A 49 mcg/dL (38-98)
[2023-10-07 09:25] LABS: Vitamin B1 7 nmol/L (8-30)
== END 2023-09-29 08:29 | disposition home or self-care (01) ==
LOC: HO.LAB 08:28
PROVIDERS: Visit Provider Physician Assistant Surgical
DX: E66.01 Morbid (severe) obesity due to excess calories (principal)
CPT/HCPCS: 36415; 80053; 80061; 82306; 82607; 82728; 82746; 83036; 83525; 83540; 84425; 84443; 84590; 84630; 85025; 86140

== ENCOUNTER 2023-10-06 10:36 | Outpatient (REF) | payer OTHER, SELFPAY ==
--- NOTE | ~2023-10-06 | US_ITS ---
EXAMINATION: US COMPLETE ABDOMEN WITH LIVER ELASTOGRAPHY CLINICAL INFORMATION: Morbid obesity. COMPARISON: CT abdomen and pelvis 04/09/2022. TECHNIQUE: Real-time imaging of the abdominal viscera. Noninvasive ultrasound liver fibrosis assessment is performed using Edilson ElastPQ point quantification shear wave elastography (pSWE) with a C5-2 MHz transducer. Multiple elastography samples are obtained. FINDINGS: PANCREAS: Normal. The visualized pancreatic head and body are normal in appearance. The remainder of the pancreas is obscured from visualization by the overlying bowel gas. ABDOMINAL AORTA: The proximal, middle, and distal aortic segments are normal in caliber. INFERIOR VENA CAVA: Visualized portions are normal. LIVER: Liver echogenicity is increased consistent with steatosis. Hepatic steatosis was also noted on the prior CT. No focal lesion or intrahepatic biliary duct dilatation. The right lobe measures 16.2 cm in length. The left lobe measures 13.3 cm in length. Portal flow is towards the liver (hepatopetal). Shear wave liver elastography median stiffness is 1.6 m/s (reference: normal median stiffness is 1.3 m/s or less). IQR/median stiffness to assess sampling precision is 0.06 (reference: good quality data set is IQR/median stiffness of 0.15 or less). GALLBLADDER: . The gallbladder is physiologically distended without evidence of stones, sludge, polyps, wall thickening or pericholecystic fluid. COMMON BILE DUCT: Normal in caliber measuring 0.4 cm in diameter. RIGHT KIDNEY: Normal. No hydronephrosis. No renal calculi or focal parenchymal lesions. The kidney measures 11.1 cm in maximum dimension. LEFT KIDNEY: Normal. No hydronephrosis. No renal calculi or focal parenchymal lesions. The kidney measures 12.6 cm in maximum dimension. SPLEEN: Normal. The spleen measures 11.1 cm in maximum dimension. FREE FLUID: None. US/US abdomen comp w elastography IMPRESSION: 1. Echogenic liver consistent with hepatic steatosis. 2. Liver elastography: In the absence of other known clinical signs, measurements rule out compensated advanced chronic liver disease. If there are known clinical signs, further testing may be needed for confirmation. REFERENCE: Society of Radiologists in Ultrasound Liver Stiffness Thresholds (2020): LIVER STIFFNESS THRESHOLDS: *Liver Stiffness equal or less than 1.3 m/s: High probability of being normal. *Liver Stiffness less than 1.7 m/s: In the absence of other known clinical signs, rules out compensated advanced chronic liver disease. *Liver Stiffness 1.7-2.1 m/s: Suggestive of compensated advanced chronic liver disease but need further test for confirmation. *Liver Stiffness over 2.1 m/s: Rules in compensated advanced chronic liver disease. *Liver Stiffness over 2.4 m/s: Suggestive of clinically significant portal hypertension. QUALITY OF DATA SET: *IQR/Median value equal or less than 0.15 implies a quality data set. *IQR/Median value over 0.15 implies a poor quality data set. SIGNIFICANT CHANGE FROM PRIOR EXAM: Significant change if liver stiffness measurement is 10% or greater from prior exam. OTHER CONSIDERATIONS: The stage of liver fibrosis may be overestimated in the setting of acute hepatitis, liver inflammation, elevated liver function tests, hepatic vascular congestion, obstructive cholestasis, non-fasting state, and infiltrative diseases such as amyloidosis and lymphoma. In some patients with NAFLD, the liver stiffness thresholds for compensated advanced chronic liver disease may be lower. In causes other than viral hepatitis and NAFLD, liver stiffness thresholds are not well established. Electronically signed by: Pete Douglas MD 10/18/2023 07:32 AM EDT
== END 2023-10-06 10:37 | disposition home or self-care (01) ==
LOC: HO.US 10:36
PROVIDERS: Visit Provider Physician Assistant Surgical
DX: E66.01 Morbid (severe) obesity due to excess calories (principal)
CPT/HCPCS: 76700; 76981

== ENCOUNTER 2023-10-13 08:03 | Outpatient (AMB) | payer OTHER, SELFPAY ==
--- NOTE | 2023-10-13 09:33 | A.OFFVIS_ITS ---
Intake Visit Reasons: TV Follow Up ELAYNE / Mikey 1ST Allergies No Known Allergies Allergy (Verified 10/13/23 09:34) Medication List - Last Reconciled 10/13/23 by José Soto MD blood sugar diagnostic (FreeStyle Lite Strips) As directed blood-glucose meter (FreeStyle Lite Meter kit) As directed cholecalciferol (vitamin D3) 125 mcg PO DAILY 90 days famotidine (Pepcid) 20 mg PO DAILY lancets (FreeStyle Lancets) As directed mecobalamin (vitamin B12) 1,000 mcg sublingual DAILY thiamine HCl (vitamin B1) 100 mg PO DAILY 90 days HPI HPI TV Follow Up ELAYNE / Mikey 1ST: Details: Start time: 9.15am, End time: 9.55am ?I spent 35 minutes speaking with the patient on the phone plus an additional 5 minutes reviewing and updating records for a total of 40 minutes HPI Comments Details: Overall weight loss: 14.4lbs, or 6% TBWL Is doing 2 Premier shakes with 1 scoop each in 8oz oat milk, 2 Atkins protein bars and one meal (7 forks of protein and 7 forks of salad or vegetables) Exercise: treadmill (speed 3.0, incline 2-8) for 500 calories x4 per week [facility] Medical History (Updated 10/13/23 @ 09:52 by José Soto MD) GERD (gastroesophageal reflux disease) Abdominal pain PCOS (polycystic ovarian syndrome) Surgical History History of root canal procedure Family History Family/Other No problems noted. Social History Household Members: Spouse and Children Housing: Other Housing Other:: town house Do you presently have visiting nurse or other home services: No Alcohol intake: current Alcohol intake frequency: holidays/special occasions only Alcohol type: wine Patient Tobacco Use Status: Never used Tobacco Substance Use Type: Marijuana service: No Current occupational status: unemployed Telehealth Telehealth Telehealth Platform: Telephone Location of provider rendering services: practice address Location of patient: address on file Patient Identification confirmed using: Name, : Yes Telehealth method: voice only Patient verbally consented to treatment: Yes Patient verbally consented to billing insurance company: Yes Patient informed of any privacy concerns related to visit: Yes Minutes spent on Phone/Video with Pt.: 40 Assessment & Plan Assessment & Plan (1) Obesity: Code(s): E66.9 - Obesity, unspecified Category: Medical Qualifiers: Obesity type: due to excess calories Obesity classification: adult class 2 (BMI 35 - 39.9) Serious obesity comorbidity presence: with serious comorbidity Body mass index: BMI 37.0-37.9 Qualified Code(s): E66.01 - Morbid (severe) obesity due to excess calories; Z68.37 - Body mass index [BMI] 37.0- 37.9, adult Plan: Plan for lap sleeve gastrectomy. If diaphragmatic or ventral hernias are present at time of surgery, these will be repaired laparoscopically as well. Risks and complications include possible conversion to an open procedure, anastomotic leak, bleeding requiring transfusion, small bowel obstruction, , DVT and pulmonary embolism, cardiac, or pulmonary complications, as fci complications such as anastomotic ulcer, insufficient weight loss and vitamin deficiencies. I emphasized the importance of close follow-up, adherence to instructions and good communication. 2. Continue same nutritional plan of 2 Premier shakes with 1 scoop each in 8oz oat milk, 2 Atkins protein bars and one meal (7 forks of protein and 7 forks of salad or vegetables) 3. Exercise: continue treadmill (speed 3.0, incline 2-8) for 500 calories x4 per week 4. Continue to send me weight measurements weekly on Fridays Orders: Orders CA stress test Today R94.31 - Abnormal electrocardiogram [ECG] [EKG] Medications: New mecobalamin (vitamin B12) place tablet under tongue and allow to dissolve for at least30 secs before swallowing 1,000 mcg sublingual DAILY 90 tabs 0RF E53.8 - Deficiency of other specified B group vitamins
== END 2023-10-13 09:55 | disposition home or self-care (01) ==
LOC: HO.HBS 08:03
PROVIDERS: Visit Provider Surgery
DX: E66.01 Morbid (severe) obesity due to excess calories (principal); Z68.37 Body mass index [BMI] 37.0-37.9, adult
CPT/HCPCS: 99214

== ENCOUNTER → 2023-10-13 08:03 | Outpatient (BNVA) | payer OTHER, SELFPAY | PROVIDERS: Visit Provider Surgery ==

== ENCOUNTER 2024-09-02 08:28 | Outpatient (AMB) | payer OTHER, SELFPAY ==
--- NOTE | 2024-09-02 10:15 | A.OFFVIS_ITS ---
VS Expanded 09/02/24 10:22 Height 5 ft 5 in Weight 233 lb BMI 38.8 Body Fat % 40.2 Body Fat Mass 93.6 Fat Free Mass 139.2 Visceral Fat Rating 9 Body Water Mass 99.6 Basal Metabolic Rate/Score 1,947 Intake Visit Reasons: [employer] Re - Est SWL BMI 38.7 Allergies No Known Allergies Allergy (Verified 09/02/24 10:16) Medication List - Last Reconciled 09/02/24 by José Soto MD HPI HPI [employer] Re - Est SWL BMI 38.7: Details: Start time: 10.06am, End time: 10.51am I spent 40 minutes speaking with the patient on the phone plus an additional 5 minutes reviewing and updating records for a total of 45 minutes HPI Comments Details: Previous weight loss efforts: self diet Wakes up: 6am, Sleeps: 11pm, Working days: 6am-11am Breakfast: occasionally (eggs with sausage) Lunch: 1pm (chicken, fries) Dinner: 5pm (rice, pasta, chicken, steak) Snacks: 10am (oreos, chips), 9pm (chips, oreos). Nothing overnight Exercise: none Beverages: Coffee/tea: none, Soda: regular Coke or Dr. Morrison, juice: none, ETOH : rarely PFSH Medical History (Updated 10/13/23 @ 09:52 by José Soto MD) GERD (gastroesophageal reflux disease) Abdominal pain PCOS (polycystic ovarian syndrome) Surgical History History of root canal procedure Family History (Updated 08/13/24 @ 10:26 by Mayra Green CMA) Family/Other No problems noted. Mother Diabetes Son No problems noted. Son No problems noted. Daughter No problems noted. Social History (Updated 08/13/24 @ 10:26 by Mayra Green CMA) Household Members: Spouse and Children Housing: Other Housing Other:: town house Do you presently have visiting nurse or other home services: No Alcohol intake: current Alcohol intake frequency: a few times a month Alcohol type: wine Patient Tobacco Use Status: Never used Tobacco Substance Use Type: Marijuana service: No Current occupational status: unemployed Telehealth Telehealth Telehealth Platform: Telephone Location of provider rendering services: practice address Location of patient: address on file Patient Identification confirmed using: Name, : Yes Telehealth method: voice only Patient verbally consented to treatment: Yes Patient verbally consented to billing insurance company: Yes Patient informed of any privacy concerns related to visit: Yes Minutes spent on Phone/Video with Pt.: 45 Assessment & Plan Assessment & Plan (1) Obesity: Code(s): E66.9 - Obesity, unspecified Category: Medical Qualifiers: Obesity type: due to excess calories Obesity classification: adult class 2 (BMI 35 - 39.9) Serious obesity comorbidity presence: with serious comorbidity Body mass index: BMI 37.0-37.9 Qualified Code(s): E66.01 - Morbid (severe) obesity due to excess calories; Z68.37 - Body mass index [BMI] 37.0- 37.9, adult Plan: 1. Plan for lap sleeve gastrectomy. If diaphragmatic or ventral hernias are present at time of surgery, these will be repaired laparoscopically as well. I emphasized the importance of close follow-up, adherence to instructions and good communication. The surgery does not replace the need to change your lifestlyle which is the cause of the obesity problem. The surgery provides the motivation to try again to change your lifestyle, it reduces the appetite and make the transition to a better lifestyle easier and doubles the amount of weight you would lose compared to doing the lifestyle change without the surgery. You will need to be on a liquid diet with protein shakes for 2 weeks before surgery to maximize weight loss and boost your nutritional status to recover better from surgery and also for the first two weeks after surgery to let the stomach heal before we introduce other foods. After the first 2 weeks we will introduce protein bars and soft foods like scrambled eggs, cottage cheese and yogurt and after the 6th week will introduce meat, fish and cooked vegetables in small amounts. Over time you should be able to eat everything in small amounts. Side effects like nausea, vomiting, heartburn or abdominal pain are not common in the practice unless you are not following in the practice. This operation requires lifetime commitment to following in our practice and communication with me. You will much less weight and experience side effects if you don?t communicate or not following in the practice. Complications are rare and in our practice is about 1/10 of the national average. However, you can develop bleeding that may require transfusion (hasn?t happened for year in the practice), you may from complications (we did not have any deaths in the practice) and infections. Infections are usually a result of breakdown in communication or not understanding or following directions correctly. They are difficult to treat, they can happen during the first 6 weeks, they may require to be in the hospital for weeks or even months, not being able to eat by mouth and you may have drains and surgeries to try and correct the issue. Other risks and complications include possible conversion to an open procedure, leaks, small bowel obstruction, blood clots, cardiac, or pulmonary complications, as detention complications such as ulcers, insufficient weight loss and vitamin deficiencies. 2. Nutritional counseling. DAYS NOT WORKING: Start with one Muscle milk protein shakes (HALF scoop in 8oz low fat unsweetened almond milk each) at 7am-9am, 1 Atkins protein bar at 10am- 12pm, another Muscle milk protein shakes (HALF scoop in 8oz low fat unsweetened almond milk each) at 1pm-3pm, one more Atkins protein bar at 4pm-6pm, dinner at 7pm (8 forks of protein and 8forks of salad/vegetables) AND one more Atkins protein bar after dinner at 9pm-11pm. DAYS WORKING OVERNIGHT: Start with one Muscle milk protein shakes (HALF scoop in 8oz low fat unsweetened almond milk each) at 12pm-2pm, 1 Atkins protein bar at 3pm-5pm, dinner at 6pm (8 forks of protein and 8 forks of salad/vegetables), another Muscle milk protein shakes (HALF scoop in 8oz low fat unsweetened almond milk each) at 8pm-10pm, and TWO more Atkins protein bars at midnight to 2am and 4am-6am. So you do 2 protein shakes, 3 protein bars and one meal per day. Meal to include lean meat (beef, fish, pork, turkey, chicken), or [place] yogurt, or egg whites, or beans with a salad with olive oil and fruits (berries, pears, apples, kiwi). Avoid salt, breads, potatoes, rice, pasta, desserts. 3. Each shake would be drunk slowly, like coffee in a period of 2 hours. 4. Cut each bar in 4 pieces and eat each piece in 30min to make each bar last 2 hours. 5. I emphasized the importance of measuring accurately the food portion and measure it when serving the food in plate 6. The meal portions include 8 full-size forks of meat and 8 full-size forks of salad. You always eat the meat portion but you can replace up to 4 forks for salad/vegetables with rice, potatoes or pasta, or a fruit if you like. The less you do it the better weight loss will be. 7. One full-size fork is what it can be scooped on the fork without falling aside and not what can be bit with the fork. Use regular forks like those you find in a typical restaurant. 8. Please buy the body composition scale we discussed and send me weight measurements as soon as possible and then once a week. Always include your diet and exercise plan. 9. Start stationary bike at a resistance level of 4.0 Increase level by 1.0 every 3 min to a max level of 10.0. Stay at this level for 3 min and then return to level 4.0 and repeat same steps until 300 calories are burned. Goal is to burn 2000 calories per week on exercise 10. The best choice would be to purchase a stationary bike at home that can track calories. Let me know if you do so I can give you an exercise plan. 11. It is important of avoiding and for at least 18 months postoperatively and has been discussed at the infosession. 12. Goal is to lose at least 1.5-2lbs per week 13. Goal to lose 10% of your weight before surgery, which is about 23lbs. Ultimate weight goal: 210lbs before surgery 14. Please follow the diet plan exactly without any change. If you don't like something about the plan or you feel hungry you need to communicate with me so I can help you revise the plan. You should not change the plan yourself 15. To be scheduled for EGD to assess the stomach's anatomy. The possibility of biopsies was discussed. Patient needs to avoid use of NSAIDs and aspirin for 1 week prior to EGD. You must be on liquids only the day before your endoscopy. Risks of perforation and bleeding was discussed with the patient. This will be an outpatient procedure with IV sedation. 16. As of tomorrow, please send me a picture of your meal plate after you measure it, but before you consume it. Orders: Orders Insulin Today E66.01 - Morbid (severe) obesity due to excess calories, Z68.37 - Body mass index [BMI] 37.0-37.9, adult H Pylori Breath Test Today E66.01 - Morbid (severe) obesity due to excess calories, Z68.37 - Body mass index [BMI] 37.0-37.9, adult Comprehensive Met. Panel Today E66.01 - Morbid (severe) obesity due to excess calories, Z68.37 - Body mass index [BMI] 37.0-37.9, adult Vitamin A Today E66.01 - Morbid (severe) obesity due to excess calories, Z68.37 - Body mass index [BMI] 37.0-37.9, adult TSH reflex Free T4 Today E66.01 - Morbid (severe) obesity due to excess calories, Z68.37 - Body mass index [BMI] 37.0-37.9, adult Ferritin Today E66.01 - Morbid (severe) obesity due to excess calories, Z68.37 - Body mass index [BMI] 37.0-37.9, adult Vitamin D 25-OH Total Today E66.01 - Morbid (severe) obesity due to excess calories, Z68.37 - Body mass index [BMI] 37.0-37.9, adult FL upper GI w air Today E66.01 - Morbid (severe) obesity due to excess calories, Z68.37 - Body mass index [BMI] 37.0-37.9, adult Hemoglobin A1c Today E66.01 - Morbid (severe) obesity due to excess calories, Z68.37 - Body mass index [BMI] 37.0-37.9, adult Complete Blood Count Auto Diff Today E66.01 - Morbid (severe) obesity due to excess calories, Z68.37 - Body mass index [BMI] 37.0-37.9, adult Lipid Panel Today E66.01 - Morbid (severe) obesity due to excess calories, Z68.37 - Body mass index [BMI] 37.0-37.9, adult IRON PROFILE Today E66.01 - Morbid (severe) obesity due to excess calories, Z68.37 - Body mass index [BMI] 37.0-37.9, adult Vitamin B12 and Folate Today E66.01 - Morbid (severe) obesity due to excess calories, Z68.37 - Body mass index [BMI] 37.0-37.9, adult Zinc Today E66.01 - Morbid (severe) obesity due to excess calories, Z68.37 - Body mass index [BMI] 37.0-37.9, adult C Reactive Protein Today E66.01 - Morbid (severe) obesity due to excess calories, Z68.37 - Body mass index [BMI] 37.0-37.9, adult Vitamin B1 Today E66.01 - Morbid (severe) obesity due to excess calories, Z68.37 - Body mass index [BMI] 37.0-37.9, adult XR chest 2V Today E66.01 - Morbid (severe) obesity due to excess calories, Z68.37 - Body mass index [BMI] 37.0-37.9, adult ECG 12 lead EKG Today E66.01 - Morbid (severe) obesity due to excess calories, Z68.37 - Body mass index [BMI] 37.0-37.9, adult Referrals Behavioral Health Referral E66.01 - Morbid (severe) obesity due to excess calories, Z68.37 - Body mass index [BMI] 37.0-37.9, adult Nutrition/Dietitian Referral E66.01 - Morbid (severe) obesity due to excess calories, Z68.37 - Body mass index [BMI] 37.0-37.9, adult
[2024-09-02 10:22] VITALS: BMI 38.8
== END 2024-09-02 10:52 | disposition home or self-care (01) ==
LOC: HO.HBS 08:28
PROVIDERS: Visit Provider Surgery
DX: E66.01 Morbid (severe) obesity due to excess calories (principal); Z68.38 Body mass index [BMI] 38.0-38.9, adult
CPT/HCPCS: 98014

== ENCOUNTER 2024-09-06 13:18 | Outpatient (REF) | payer OTHER, SELFPAY ==
--- NOTE | ~2024-09-06 | XR_ITS ---
EXAMINATION: XR CHEST 2 VIEWS HISTORY: E66.01 - Morbid (severe) obesity due to excess calories COMPARISON: Comparison is made with the prior examination dated 09/26/2023. FINDINGS: PA and lateral views of the chest are submitted. The lungs are expanded and clear. There is no pleural effusion, pneumothorax, or pulmonary vascular congestion. The heart is normal in size. The bones are intact. XR/XR chest 2V IMPRESSION: No acute cardiopulmonary abnormality. Electronically signed by: Lit Barton MD 09/06/2024 01:46 PM EDT
--- NOTE | 2024-09-06 13:21 | ECG_ITS ---
Test Reason : E66.01 Blood Pressure : */* mmHG Vent. Rate : 66 BPM Atrial Rate : 66 BPM P-R Int : 132 ms QRS Dur : 92 ms QT Int : 390 ms P-R-T Axes : 28 33 65 degrees QTcB Int : 408 ms Normal sinus rhythm Nonspecific T wave abnormality Abnormal ECG When compared with ECG of 26-Sep-2023 15:40, No significant change was found Referred By: José Soto Electronically Signed By: JASKARAN HULL
== END 2024-09-06 13:19 | disposition home or self-care (01) ==
LOC: HO.XRAY 13:18
PROVIDERS: Visit Provider Surgery
DX: E66.01 Morbid (severe) obesity due to excess calories (principal); Z68.37 Body mass index [BMI] 37.0-37.9, adult
CPT/HCPCS: 71046; 93005

== ENCOUNTER → 2024-09-06 13:21 | Outpatient (BNV) | payer OTHER, SELFPAY | PROVIDERS: Visit Provider Internal Medicine | DX: R94.31 Abnormal electrocardiogram [ECG] [EKG] (principal); E66.01 Morbid (severe) obesity due to excess calories | CPT/HCPCS: 93010 ==

== ENCOUNTER → 2024-09-06 13:33 | Outpatient (BNV) | payer OTHER, SELFPAY | PROVIDERS: Visit Provider Radiology Diagnostic Radiology | DX: E66.01 Morbid (severe) obesity due to excess calories (principal) | CPT/HCPCS: 71046 ==

== ENCOUNTER 2024-09-07 07:31 | Outpatient (REF) | payer OTHER, SELFPAY ==
[2024-09-07 07:41] LABS: MANUAL DIFF FLAG NO
[2024-09-07 08:18] LABS: Hematocrit 39.4 % (37.0-47.0); Hemoglobin 13.0 g/dl (12.0-16.0); Imm Gran Abs Auto 0.03 X10*3/uL (0.00-0.03); Imm Gran Pct Auto 0.5 % (0.0-0.4); Lymphocytes Absolute Auto 2.1 X10*3/uL (1.2-4.9); Mean Corpuscular HGB Conc 33.0 g/dl (31.0-35.0); Mean Corpuscular Hemoglobin 28.0 pg (27.0-33.0); Mean Corpuscular Volume 84.9 fL (80.0-98.0); NRBC Abs Auto 0.000 X10*3/uL (0.0-0.012); NRBC Pct Auto 0.0 /100WBC (0.0-0.2); Platelet Count 325 X10*3/uL (160-400); Red Blood Count 4.64 X10*6/uL (4.20-5.50); White Blood Count 5.5 X10*3/uL (4.8-10.8)
[2024-09-07 08:22] LABS: Hemoglobin A1C 143.7476 umol/L; Total Hemoglobin (HGBA1C) 3398.2032 umol/L
[2024-09-07 09:17] LABS: Alanine Aminotransferase 36 U/L (0-31); Albumin Level 4.8 g/dL (3.5-5.0); Alkaline Phosphatase 76 U/L (39-117); Anion Gap 11 (12-20); Aspartate Amino Transferase 26 U/L (5-31); Blood Urea Nitrogen 11 mg/dL (9-16); Calcium 9.4 mg/dL (8.4-10.2); Carbon Dioxide 26 mmol/L (22-29); Chloride 106 mmol/L (96-108); Cholesterol 149 mg/dL (<200); Estimated Glomerular Filt Rate > 60; HDL Cholesterol 28 mg/dL (>40); Iron 121 mcg/dL (30-160); Percent Iron Saturation 38 % (15-50); Potassium 4.1 mmol/L (3.3-5.1); Sodium 139 mmol/L (135-145); Total Iron Binding Capacity 319 mcg/dL (228-428); Total Protein 7.6 g/dL (6.5-8.0); Triglycerides 235 mg/dL (<150); Unsaturated Iron Binding 198 ug/dL
[2024-09-07 09:38] LABS: Ferritin 121 ng/mL (10-122)
[2024-09-07 09:40] LABS: Folate 16.2 ng/mL (> or = 4.0); Vitamin B12 426 pg/mL (200-900)
== END 2024-09-07 07:32 | disposition home or self-care (01) ==
LOC: HO.LAB 07:31
PROVIDERS: Visit Provider Surgery
DX: E66.01 Morbid (severe) obesity due to excess calories (principal); Z68.37 Body mass index [BMI] 37.0-37.9, adult
CPT/HCPCS: 36415; 80053; 80061; 82306; 82607; 82728; 82746; 83036; 83525; 83540; 84425; 84443; 84590; 84630; 85025; 86140

== ENCOUNTER 2024-09-25 10:24 | Outpatient (AMB) | payer OTHER, SELFPAY ==
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
== END 2024-09-25 11:16 | disposition home or self-care (01) ==
LOC: HO.HBST 10:24
PROVIDERS: Visit Provider Counselor Mental Health
DX: F43.20 Adjustment disorder, unspecified (principal); Z71.89 Other specified counseling
CPT/HCPCS: 90791

== ENCOUNTER → 2024-10-14 09:06 | Outpatient (REF) | payer OTHER, SELFPAY ==
--- NOTE | 2024-10-14 09:09 | CA_ITS ---
Transthoracic Echocardiogram Patient (Last, First, Middle): Que Zambrano, Gender: F Date of : 1990 Age: 34 Procedure Date: 10/14/2024 Procedure Type: Transthoracic Echocardiogram Location: OP Height: 165.1 cm Weight: 105.69 kg BSA: 2.11 m2 Heart Rate: 66 bpm BP: 136 / 74 mmHg Clin Tech: SB Referring MD: José Soto MD Symptoms: R94.31 - Abnormal electrocardiogram [ECG] [EKG] Study Quality: Adequate ECG Rhythm: Sinus Conclusions: - The left ventricular systolic function is low normal. The visually estimated ejection fraction is between 50-55%. - No obvious valvular pathology seen on this study. Findings Left Ventricle Normal left ventricular cavity size. There is normal left ventricular wall thickness. The left ventricular systolic function is low normal. The visually estimated ejection fraction is between 50-55%. There is no evidence of regional wall motion abnormalities. Diastolic function is normal for age. Right Ventricle Normal right ventricular cavity size and systolic function. Atria Both atria are normal in size. Aortic Valve There is a normal trileaflet aortic valve. There is no aortic valve stenosis. There is no aortic valve regurgitation. Mitral Valve The mitral valve appears normal. There is no mitral valve regurgitation. There is no mitral valve stenosis. Pulmonic Valve The pulmonic valve is likely normal. Tricuspid Valve There is mild tricuspid valve regurgitation. There is no evidence of pulmonary hypertension. Great Vessels The asc aorta is normal in size. Venous The inferior vena cava is normal in size and collapses greater than 50% with inspiration. Pericardium/Pleural There is no evidence of pericardial effusion. Prior Study Comparison No prior study available for comparison. Recommendations, Care & Conclusions No obvious valvular pathology seen on this study. Measurements 2D Linear Measurements IVSd: 0.91 0.6-0.9/0.6-1.0 cm LVIDd: 5.33 3.9-5.3/4.2-5.9 cm LVIDd Index: 2.53 2.4-3.2/2.2-3.1 cm/m2 LVIDs: 3.47 2.0-3.6 cm LVPWd: 0.76 0.7-1.1 cm LA Diam: 3.70 2.7-3.8/3.0-4.0 cm LAIDs Index: 1.75 1.5-2.3 cm/m2 LV Mass: 199.86 67-162/88-224 g LV Mass Index: 94.72 43-95/49-115 g/m2 LVOT Diam: 2.20 3.0+(-)1.3 cm 2D Systolic Function EF 4C: 62.70 >55% EF 2C: 54.20 >55% EF BiP: 57.10 >55% Mitral Valve MV Pk E: 0.90 MV PK A: 0.57 MV Decel Time: 163.00 E/A: 1.60 E'Lateral: 8.05 E'Medial: 6.53 E/E' Med: 13.80 E/E' Lat: 11.20 PHT: 48.00 MVA PHT: 4.58 Decel Traverse: 5.56 Aortic Valve AoV Pk Blane: 1.29 AoV Pk Grad: 7.00 VARGHESE: 2.63 LVOT LVOT Pk Blane: 0.83 LVOT Mn Blane: 0.62 LVOT VTI: 0.20 LVOT Pk Grad: 3.00 LVOT Mn Grad: 2.00 LVOT Diam: 2.20 LVOT Area: 3.80 Diastolic Function MV Pk E: 0.90 MV Pk A: 0.57 E/A: 1.60 E'Medial: 6.53 E/E' Med: 13.80 E' Laterial: 8.05 E/E' Lat: 11.20 Right Ventricle TAPSE (mm): 23.00 TVS' Blane: 13.30 Tricuspid Valve TR Pk Blane: 2.14 TR Pk Grad: 18.00 RA Press: 3.00 RVSP: 21.00 Great Vessels Aorta Sinus of Valsalva: 2.80 2.0-3.5 cm Ao Asc: 2.40 2.1-3.4 cm Pulmonary Veins Pulm Vein S/D 1.30 Pulmonary Valve PV Pk Blane: 0.96 Peak PV Grad: 4.00 SD Pk Blane: 1.31 Updated in Other Vendor System with Status of Final Eren Polo MD electronically signed on 10/14/2024 11:06:33 AM with status of Final
== END ==
LOC: HO.CARD 09:06
PROVIDERS: Visit Provider Surgery
DX: R94.31 Abnormal electrocardiogram [ECG] [EKG] (principal)
CPT/HCPCS: 93306

== ENCOUNTER → 2024-10-14 09:09 | Outpatient (BNV) | payer OTHER, SELFPAY | PROVIDERS: Visit Provider Internal Medicine | DX: R94.31 Abnormal electrocardiogram [ECG] [EKG] (principal) | CPT/HCPCS: 93306 ==

== ENCOUNTER 2024-10-23 09:08 | Outpatient (AMB) | payer OTHER, SELFPAY ==
--- NOTE | 2024-10-23 12:50 | A.OFFVIS_ITS ---
VS Expanded 10/23/24 12:59 Height 5 ft 5 in Weight 214 lb 7 oz BMI 35.7 Body Fat % 48.1 Body Fat Mass 103.2 Fat Free Mass 111.4 Visceral Fat Rating 11 Body Water Mass 81.2 Basal Metabolic Rate/Score 1,610 Intake Visit Reasons: TV Pre Op LSG 11/07/24 Allergies No Known Allergies Allergy (Verified 10/23/24 12:51) Medication List - Last Reconciled 10/23/24 by José Soto MD cholecalciferol (vitamin D3) 125 mcg PO DAILY mecobalamin (vitamin B12) 1,000 mcg sublingual DAILY ondansetron 4 mg PO Q12H pantoprazole 40 mg PO DAILY polyethylene glycol 3350 17 grams PO DAILY sucralfate 10 mL PO BID HPI HPI TV Pre Op LSG 11/07/24: Details: Start time: 12.40pm, End time: 1.10pm ?I spent 25 minutes speaking with the patient on the phone plus an additional 5 minutes reviewing and updating records for a total of 30 minutes HPI Comments Details: Overall weight loss: 18.3lbs, or 7.85% Is doing 2 Muscle milk powder (1/2 scoop in 8oz almond milk), 2 Atkins protein bars and one meal (8 forks of meat and 8 forks of salad of vegetables Exercise: walking outside x3-4/wk for 500 calories PFSH Medical History (Updated 09/10/24 @ 17:50 by José Soto MD) GERD (gastroesophageal reflux disease) Abdominal pain PCOS (polycystic ovarian syndrome) Surgical History History of root canal procedure Family History (Updated 08/13/24 @ 10:26 by Mayra Green CMA) Family/Other No problems noted. Mother Diabetes Son No problems noted. Son No problems noted. Daughter No problems noted. Social History (Updated 08/13/24 @ 10:26 by Mayra Green CMA) Household Members: Spouse and Children Housing: Other Housing Other:: town house Do you presently have visiting nurse or other home services: No Alcohol intake: current Alcohol intake frequency: a few times a month Alcohol type: wine Patient Tobacco Use Status: Never used Tobacco Substance Use Type: Marijuana service: No Current occupational status: unemployed Telehealth Telehealth Telehealth Platform: Telephone Location of provider rendering services: practice address Location of patient: address on file Patient Identification confirmed using: Name, : Yes Telehealth method: voice only Patient verbally consented to treatment: Yes Patient verbally consented to billing insurance company: Yes Patient informed of any privacy concerns related to visit: Yes Minutes spent on Phone/Video with Pt.: 30 Assessment & Plan Assessment & Plan (1) Obesity: Code(s): E66.9 - Obesity, unspecified Category: Medical Qualifiers: Obesity type: due to excess calories Obesity classification: adult class 2 (BMI 35 - 39.9) Serious obesity comorbidity presence: with serious comorbidity Body mass index: BMI 37.0-37.9 Qualified Code(s): E66.01 - Morbid (severe) obesity due to excess calories; Z68.37 - Body mass index [BMI] 37.0- 37.9, adult Plan: 1. Plan for lap sleeve gastrectomy including upper GI endoscopy. All tests has been completed and reviewed and the patient is cleared for the surgery. ?If diaphragmatic or ventral hernias are present at time of surgery, these will be repaired laparoscopically as well. Risks and complications were discussed in detail including possible conversion to an open procedure, anastomotic leak, bleeding requiring transfusion, small bowel obstruction, , DVT and pu lmonary embolism, cardiac, or pulmonary complications, as half-way complications such as anastomotic ulcer, insufficient weight loss and vitamin deficiencies. I emphasized the importance of close follow-up, adherence to instructions and good communication. So far she has proven to be an excellent communicator and very compliant with all our directions accomplishing a great weight loss. I believe that she is an excellent candidate and she is ready. 2. Preop prescriptions were provided and explained the purpose of each one. Need to be purchased preop. Start Pantoprazole now as you get it from the pharmacy, 1 pill per day. Sucralfate and Zofran are for after surgery as needed. 3. Bowel prep: please do 7 packets ?of Miralax mixing each one with a an 8oz glass of water, crystal light, gatorade zero, or propel ?on 11/05/24 and the same amount on 11/06/24. The Miralax you begin with one packet at a time in 8oz water or crystal light, gatorade zero, or propel ?as early in the day as you can and you do them back to back until you finish them. Continue the protein shakes during ?the bowel prep. 4. Needs to purchase 1oz medicine cups . 5. Needs to purchase Children's liquid Tylenol for postop pain control. 6. Avoid aspirin, motrin, Advil, Aleve, Meloxicam, Excedrin, Ibuprofen, Naproxyn. Tylenol is OK. 7. She needs to purchase the Celebrate multivitamins from the hospital's gift shop, chewable or pills whatever you prefer. 8. Will do basic preop blood work-up any day between Monday10/28/24 and Monday11/01/24 fasting for 12 hours and is scheduled to see the Anesthesiologist prior to the day of surgery. 9. Importance of adherence to postop folllow-up and recommendations was underscored and she understands that. 10. Stop food and bars as of Monday10/27/24 and continue with 5 Muscle Milk protein shakes (1/2 scoop EACH in 8oz almond milk) at 7am-9am, 10am-12pm, 1pm- 3pm, 4pm-6pm and at 7pm-9pm 11. No soups, broths or V8 12. The patient's?medical?history has been reviewed and they are considered low risk for post op DVT and therefore DVT prophylaxis is not considered necessary. Travel after surgery was reviewed. The patient has not disclosed any travel rayray ns during the first 30 days after surgery and they have been advised that within the first 30 days after surgery any bus, plane, train or car travel over 2 hours in duration is contraindicated due to the possibility of developing blood clots from immobility. Any travel, needs to include periods of ambulation of 10 minutes in duration every 2 hours.? Patient was instructed to discuss any plans for travel during this period with their bariatric surgeon.? 13. Please take at the day of surgery the following medications: NONE 14. Stop any control pills and don't use them for one month after surgery 15. Absolutely no smoking or vaping, or marijuana until the surgery and for at least the first 4 weeks. Only nicotine patches are allowed. 16. Send me weight measurements on Monday10/29/24, Monday11/02/24 and then on 11/07/24, the day of surgery before you go to the hospital. 17. Avoid any steroids by mouth for any reason. Let me know if someone prescribes them to you 18. These instructions supersede anything else you read in the handbook, anything you watched in videos or classes or you were told by any other provider. If there is any conflict, you follow the above instructions and nothing else. Orders: Orders Insulin Today E11.9 - Type 2 diabetes mellitus without complications, E28.2 - Polycystic ovarian syndrome, E66.01 - Morbid (severe) obesity due to excess calories, K21.9 - Gastro-esophageal reflux disease without esophagitis, Z68.37 - Body mass index [BMI] 37.0-37.9, adult C Reactive Protein Today E11.9 - Type 2 diabetes mellitus without complications, E28.2 - Polycystic ovarian syndrome, E66.01 - Morbid (severe) obesity due to excess calories, K21.9 - Gastro-esophageal reflux disease without esophagitis, Z68.37 - Body mass index [BMI] 37.0-37.9, adult Type and Screen Today E11.9 - Type 2 diabetes mellitus without complications, E28.2 - Polycystic ovarian syndrome, E66.01 - Morbid (severe) obesity due to excess calories, K21.9 - Gastro-esophageal reflux disease without esophagitis, Z68.37 - Body mass index [BMI] 37.0-37.9, adult Complete Blood Count Auto Diff Today E11.9 - Type 2 diabetes mellitus without complications, E28.2 - Polycystic ovarian syndrome, E66.01 - Morbid (severe) obesity due to excess calories, K21.9 - Gastro-esophageal reflux disease without esophagitis, Z68.37 - Body mass index [BMI] 37.0-37.9, adult Lipid Panel Today E11.9 - Type 2 diabetes mellitus without complications, E28.2 - Polycystic ovarian syndrome, E66.01 - Morbid (severe) obesity due to excess calories, K21.9 - Gastro-esophageal reflux disease without esophagitis, Z68.37 - Body mass index [BMI] 37.0-37.9, adult Hemoglobin A1c Today E11.9 - Type 2 diabetes mellitus without complications, E28.2 - Polycystic ovarian syndrome, E66.01 - Morbid (severe) obesity due to excess calories, K21.9 - Gastro-esophageal reflux disease without esophagitis, Z68.37 - Body mass index [BMI] 37.0-37.9, adult Comprehensive Met. Panel Today E11.9 - Type 2 diabetes mellitus without complications, E28.2 - Polycystic ovarian syndrome, E66.01 - Morbid (severe) obesity due to excess calories, K21.9 - Gastro-esophageal reflux disease without esophagitis, Z68.37 - Body mass index [BMI] 37.0-37.9, adult Partial Thromboplastin Time Today E11.9 - Type 2 diabetes mellitus without complications, E28.2 - Polycystic ovarian syndrome, E66.01 - Morbid (severe) obesity due to excess calories, K21.9 - Gastro-esophageal reflux disease without esophagitis, Z68.37 - Body mass index [BMI] 37.0-37.9, adult Prothrombin Time INR Today E11.9 - Type 2 diabetes mellitus without complications, E28.2 - Polycystic ovarian syndrome, E66.01 - Morbid (severe) obesity due to excess calories, K21.9 - Gastro-esophageal reflux disease without esophagitis, Z68.37 - Body mass index [BMI] 37.0-37.9, adult TSH reflex Free T4 Today E11.9 - Type 2 diabetes mellitus without complications, E28.2 - Polycystic ovarian syndrome, E66.01 - Morbid (severe) obesity due to excess calories, K21.9 - Gastro-esophageal reflux disease without esophagitis, Z68.37 - Body mass index [BMI] 37.0-37.9, adult Medications: New sucralfate 10 mL PO BID 600 mL 2RF K21.9 - Gastro-esophageal reflux disease without esophagitis ondansetron Only take one every 12 hours as needed if you have nausea 4 mg PO Q12H 20 tabs 0RF nausea and vomiting R11.0 - Nausea polyethylene glycol 3350 Mix each measuring cup with 8oz of water, Crystal light, or Gatorade zero, or Propel and do 7 measuring cups on 11/05/24 and another 7 measuring cups on 11/06/24 17 grams PO DAILY 238 grams 0RF Z01.818 - Encounter for other preprocedural examination pantoprazole 40 mg PO DAILY 90 tabs 0RF K21.9 - Gastro-esophageal reflux disease without esophagitis
[2024-10-23 12:59] VITALS: BMI 35.7
== END 2024-10-23 13:10 | disposition home or self-care (01) ==
LOC: HO.HBS 09:08
PROVIDERS: Visit Provider Surgery
DX: E66.01 Morbid (severe) obesity due to excess calories (principal); Z68.37 Body mass index [BMI] 37.0-37.9, adult
CPT/HCPCS: 98014

== ENCOUNTER 2024-11-07 06:01 | Inpatient (IN) | payer OTHER, SELFPAY ==
[2024-11-01 10:54] LABS: MANUAL DIFF FLAG NO
[2024-11-01 11:17] LABS: Hematocrit 39.2 % (37.0-47.0); Hemoglobin 13.2 g/dl (12.0-16.0); Imm Gran Abs Auto 0.01 X10*3/uL (0.00-0.03); Imm Gran Pct Auto 0.2 % (0.0-0.4); Lymphocytes Absolute Auto 1.9 X10*3/uL (1.2-4.9); Mean Corpuscular HGB Conc 33.7 g/dl (31.0-35.0); Mean Corpuscular Hemoglobin 28.2 pg (27.0-33.0); Mean Corpuscular Volume 83.8 fL (80.0-98.0); NRBC Abs Auto 0.000 X10*3/uL (0.0-0.012); NRBC Pct Auto 0.0 /100WBC (0.0-0.2); Platelet Count 310 X10*3/uL (160-400); Red Blood Count 4.68 X10*6/uL (4.20-5.50); White Blood Count 4.3 X10*3/uL (4.8-10.8)
[2024-11-01 11:23] LABS: INTERNATIONAL NORM RATIO 1.1 (0.9-1.1); Prothrombin Time 12.6 SEC (10.9-12.4)
[2024-11-01 11:26] LABS: Partial Thromboplastin Time 35.1 SEC (26.7-34.1)
[2024-11-01 11:49] LABS: Hemoglobin A1C 136.8112 umol/L; Total Hemoglobin (HGBA1C) 3435.5263 umol/L
[2024-11-01 12:32] LABS: Alanine Aminotransferase 34 U/L (0-31); Albumin Level 4.9 g/dL (3.5-5.0); Alkaline Phosphatase 75 U/L (39-117); Anion Gap 13 (12-20); Aspartate Amino Transferase 29 U/L (5-31); Blood Urea Nitrogen 9 mg/dL (9-16); Calcium 9.4 mg/dL (8.4-10.2); Carbon Dioxide 26 mmol/L (22-29); Chloride 103 mmol/L (96-108); Cholesterol 141 mg/dL (<200); Estimated Glomerular Filt Rate > 60; HDL Cholesterol 26 mg/dL (>40); Potassium 3.9 mmol/L (3.3-5.1); Sodium 138 mmol/L (135-145); Total Protein 7.8 g/dL (6.5-8.0); Triglycerides 114 mg/dL (<150)
[2024-11-01 13:06] VITALS: BMI 34.6
--- NOTE | 2024-11-05 14:09 | P.CONAN_ITS ---
Documented by User: Savana Messer NP 11/05/24 14:10 HPI - Anesthesia Eval Consult details Narrative: 34yo F for Gastrectomy Sleeve,EGD,possible Diaphragmatic Hernia,possible Ventral Hernia,possible Open PMFSH Active Problems Active Problems: All Active Problems Vitamin D deficiency (Acute) GERD (gastroesophageal reflux disease) (Acute) BMI 37.0-37.9, adult (Acute) Obesity (Acute) Abnormal EKG (Acute) Vitamin B12 deficiency (Acute) Morbid obesity (Acute) Abdominal pain (Acute) PCOS (polycystic ovarian syndrome) (Acute) Diabetes (Acute) Past Medical History Medical History GERD (gastroesophageal reflux disease) Abdominal pain PCOS (polycystic ovarian syndrome) Family History Family History Family/Other No problems noted. Mother Diabetes Son No problems noted. Son No problems noted. Daughter No problems noted. Surgical History Surgical History History of root canal procedure Social History Social History Household Members: Spouse and Children Housing: Other Housing Other:: town house Do you presently have visiting nurse or other home services: No Alcohol intake: current Alcohol intake frequency: a few times a month Alcohol type: wine Patient Tobacco Use Status: Never used Tobacco Use of substances other than those prescribed or required for medical reasons: Yes Substance Use Type: Marijuana Substance Use Frequency: Weekly Have you been hit, kicked, punched, or otherwise hurt by someone within the past year? If so, by whom?: No Are you DNR?: No Advance Directives: No Advance Directives Information Provided: No Advance Directives on File: No Patient : No : No Poor oral hygiene: No service: No Current occupational status: unemployed Meds Allergies Allergy/AdvReac Type Severity Reaction Status Date / Time No Known Allergies Allergy Verified 10/23/24 12:51 Exam Height,Weight and Vital Signs: Height 5 ft 5 in Weight 94.347 kg Pertinent Lab Results Pertinent Lab Results: Laboratory Tests 11/01/24 11/01/24 10:50 10:54 WBC 4.3 L RBC 4.68 Hgb 13.2 Hct 39.2 MCV 83.8 MCH 28.2 MCHC 33.7 RDW 13.5 Plt Count 310 MPV 9.9 Immature Gran % (Auto) 0.2 Neut % (Auto) 45.2 Lymph % (Auto) 43.8 H [place] % (Auto) 6.6 Eos % (Auto) 3.0 Baso % (Auto) 1.2 Lymph # (Auto) 1.9 [place] # (Auto) 0.3 Eos # (Auto) 0.1 Baso # (Auto) 0.1 Abs Immat Gran (auto) 0.01 Absolute Neuts (auto) 1.9 L Absolute Nucleated RBC 0.000 Nucleated RBC % (auto) 0.0 PT 12.6 H INR 1.1 APTT 35.1 H Sodium 138 Potassium 3.9 Chloride 103 Carbon Dioxide 26 Anion Gap 13 BUN 9 Creatinine 0.59 Estim Creat Clear Calc TNP Estimated GFR > 60 Random Glucose 79 Estimat Average Glucose 120 Hemoglobin A1c % 5.8 Insulin Level 4 Calcium 9.4 Total Bilirubin 0.6 AST 29 ALT 34 H Alkaline Phosphatase 75 C-Reactive Protein 0.86 H Total Protein 7.8 Albumin 4.9 Triglycerides 114 Cholesterol 141 LDL Cholesterol, Calc 93 HDL Cholesterol 26 L TSH 1.14 Blood Type O Positive Antibody Screen NEGATIVE Narrative Narrative: EKG 08/2024 Vent. Rate : 66 BPM Atrial Rate : 66 BPM P-R Int : 132 ms QRS Dur : 92 ms QT Int : 390 ms P-R-T Axes : 28 33 65 degrees QTcB Int : 408 ms Normal sinus rhythm Nonspecific T wave abnormality Abnormal ECG When compared with ECG of 26-Sep-2023 15:40, No significant change was found ECHO 09/2024 Conclusions: - The left ventricular systolic function is low normal. The visually estimated ejection fraction is between 50-55%. - No obvious valvular pathology seen on this study. Documented by User: Pily Ching MD 11/07/24 07:27 [facility] Past Medical History Medical History GERD (gastroesophageal reflux disease) Abdominal pain PCOS (polycystic ovarian syndrome) Family History Family History Family/Other No problems noted. Mother Diabetes Son No problems noted. Son No problems noted. Daughter No problems noted. Surgical History Surgical History History of root canal procedure History of Problems with Anesthesia: No Social History Social History Household Members: Spouse and Children Housing: Other Housing Other:: town house Do you presently have visiting nurse or other home services: No Alcohol intake: current Alcohol intake frequency: a few times a month Alcohol type: wine Patient Tobacco Use Status: Never used Tobacco Use of substances other than those prescribed or required for medical reasons: Yes Substance Use Type: Marijuana Substance Use Frequency: Weekly Have you been hit, kicked, punched, or otherwise hurt by someone within the past year? If so, by whom?: No Are you DNR?: No Advance Directives: No Advance Directives Information Provided: No Advance Directives on File: No Patient : No : No Poor oral hygiene: No service: No Current occupational status: unemployed Meds Allergies Allergy/AdvReac Type Severity Reaction Status Date / Time No Known Allergies Allergy Verified 10/23/24 12:51 Exam Airway Mallampati Class: II TM Dist: >3cm Neck ROM: Full Loose/Missing/Broken Teeth: No Heart: RRR Lungs: CTA Assessment and Plan Assessment Anesthesia Assessment: Anesthesia Plan Discussed and Chart Reviewed Final Anesthetic Review History of Problems with Anesthesia: No NPO: Yes ASA Class: II Final Preanesthetic Review: Meds/Allgs Chart Reviewed, Consent Obtained/Reviewed and Anes Risks/Benef Reviewed Patient Risk: Low Procedure Risk: Intermediate Anesthetic Plan Anesthetic Plan: GA Disposition: Standard PACU
[2024-11-07] VITALS (12 sets, daily range): BP systolic 114–136; BP diastolic 58–76; PULSE 66–82; RESP 16–19; TEMP 36.4–37.1; O2SAT 95–99; BMI 33.9; BMI 35.0
[2024-11-07] MEDS: Aprepitant 32 MG/4.4 ML VIAL IVPUSH (06:26)
[2024-11-07] MEDS: Lactated Ringers 1,000 ML 999 ML IV (06:32)
[2024-11-07 06:50] LABS: UPreg QC Valid YES
--- NOTE | 2024-11-07 07:32 | MHC.SHP ---
Pre-Procedural Eval Section A - 24 Hr Update-Section A only Date of Service: 11/07/24 The patient is an INPATIENT: Yes The patient has been examined within 24 hours of the surgical procedure. The History & Physical has been completed within 30 days and I have reviewed it.: Yes Section B - Complete if H&P > 30 days Chief Complaint: Severe obesity Relevant Family History (Specify if Yes): No Relevant Social History: None Present Medications: None Medical History: No relevant PMH History of Previous Operations: No relevant previous surgery Allergies: Allergies Allergy/AdvReac Type Severity Reaction Status Date / Time No Known Allergies Allergy Verified 10/23/24 12:51 Review of Systems Sugical H&P ROS: Negative: Constitution, Cardiovascular, Respiratory, Neurological, Psychiatric, Hem-Onc, Allergic/Immunologic, Gastrointestinal, Genitourinary, Musculoskeletal, Integumentary, Endocrine and Eyes/Ears/Nose/Throat Exam Surgical H&P Exam: Normal: HEENT, Normal: Heart, Normal: Lungs, Normal: Extremities, Normal: Abdomen, Normal: Skin and Normal: Neurological Plan Diagnosis/Plan: Unchanged I have reviewed the history and physical and performed a pertinent physical examination on my patient. No changes have occurred unless specified. Time Spent With Patient Time: Total time managing care of this patient today ____ minutes.
--- NOTE | 2024-11-07 07:33 | P.BOP_ITS ---
Brief Operative Note Date of Service: 11/07/24 Pre-op diagnosis: Severe obesity with comorbidities (see below) Post-op diagnosis: same Procedure: INITIAL PATIENT BMI ON PRESENTATION AT OUR OFFICE: 38.8 kg/m2 LAST BMI BEFORE SURGERY: 35.4 kg/m2 COMORBIDITIES: none ?The patient presented to the Weight Management Program with significant obesity that was negatively impacting the patient's comorbidities as listed above.? The program is a phased program with a special focus on preoperative medical weight management to promote substantial weight loss and prepare the patients for the second phase of the program: bariatric surgery. The patient participated in an intensive weekly lifestyle ?intervention and exercise program during which the patient ?has lost between the initial office visit and the last preoperative visit 30lbs lbs, or 12.9% of initial actual body weight. It was deemed appropriate for the patient to now have bariatric surgery. In light of the current Covid-19 pandemic and the well documented strong association of obesity and increased risk of worse outcomes if infected with Covid-19 (REFERENCES: https://pubmed.ncbi.nlm.nih.gov/99662730/ ,? https://pubmed.ncbi.nlm.nih.gov/53202755/ ), any delay in undergoing bariatric surgery may lead to the patient's worsening health condition and increased?risk of more severe Covid-19 disease if infected. In addition a recent?study from [facility] published in [facility] on 02/15/2021 ([email or web address]) found that, among patients with obesity, substantial weight loss achieved with surgery was associated with improved outcomes of COVID-19 infection. The findings suggest that obesity can be a modifiable risk factor for the severity of COVID-19 infection. In addition, the patient met the BMI-criteria for bariatric surgery based on the BMI on initial presentation. The patient should not be penalized for achieving such weight loss because ?it is not sustainable long-term without surgical intervention and it was achieved in preparation for bariatric surgery ?under my direction and based on my published research ([email or web address]).pdf and? https://www.kris.org/article/[email or web address](11)87972-X/pdf ) ?that a 10% preoperative weight loss improves long-term weight loss after surgery and reduces perioperative complications.? Insurance carriers such as [facility] have endorsed my recommendations ?and have included in their policies criteria to include a 10% preoperative weight loss requirement. PROCEDURE: Esophago-gastroscopy, laparoscopic sleeve gastrectomy and laparoscopic gastropexy INDICATIONS: This is a 34 year-old female who was electively scheduled for laparoscopic, possibly open sleeve gastrectomy. The risks and complications of the procedure were discussed with the patient in advance, particularly the possibility of ; pulmonary embolism; staple line leak; bleeding; GERD; cardiac, pulmonary, or renal complications; as well as long-term problems such as insufficient weight loss, vitamin deficiency, strictures, or ulcers. The patient understood all the risks, and was in agreement to proceed with surgery. DESCRIPTION OF PROCEDURE: After informed consent was obtained from the patient, the patient was given preoperative antibiotics, and was transferred to the operating room. After successful induction of general anesthesia, pneumatic compression devices were placed on both lower extremities. An upper endoscopy was performed next. The oropharynx and esophagus appeared to be within normal limits. There was no diaphragmatic hernia present. The stomach was entered. Then after all fluid and air were suctioned and the stomach was fully decompressed, the scope was withdrawn and secured in the mid esophagus. The patient was then prepped and draped in the usual sterile manner, and abdominal access was established at the right upper quadrant with the Selwyn t echnique. A 12 mm blunt port was inserted, and the abdomen was insufflated with CO2 to a pressure of 15 mmHg. Under direct visualization, additional ports were placed, specifically two 5 mm Versi-step ports to the left upper quadrant, and a 5 mm Versi-Step port to the right upper quadrant. 1% lidocaine plain was used to infiltrate all port sites as well as all fascia defects. Following that, the patient was placed in a steep reverse Trendelenburg position. An additional 5 mm port was placed to the right flank for the Mediflex retractor that was used to retract the left lobe of the liver. The gastro-esophageal fat pad was opened with the ultrasonic device (Thalesiaerbesarah, Olympus) and the anterior esophagus and hiatus were exposed. The angle of His was opened with the ultrasonic device the fundus of the stomach from any diaphragmatic and splenic attachments. I then opened the gastrocolic ligament between the transverse colon and the greater curvature of the stomach with the ultrasonic device to enter the lesser sac and facilitate the ligation of the short gastric vessels. I started at a mid-point along the greater curvature and using the Thunderbeat, all short gastric vessels were divided all the way to the angle of His until the left xavi was completely dissected at its entirety. I then divided the gastro-colic ligament distally to a distance of about 3-4 cm proximal to the pylorus. ? The stomach was then divided transversely with three Endo RESHMA-45 purple and three RESHMA-60 articulating purple loads using the [employer] stapler and loads. Every effort was made that the gastric sleeve had a tubular shape and an even caliber throughout. Once the sleeve resection was completed, the staple line of the gastric sleeve was reinforced with Hemoclips. The resected stomach was retrieved without difficulty from the Selwyn port. A gastropexy was then performed in order to prevent postoperative GERD and partial gastric volvulus. Several interrupted 2.0 Surgidac sutures were placed between the sleeve's staple line and the previously divided greater omentum and gastro-colic ligament using the Endo-Stitch device. ?An upper endoscopy was performed. There was no narrowing at the GE junction. The scope was easily advanced all the way to the pylorus which was clearly visualized. There was no narrowing anywhere and the sleeve's caliber was even throughout. The sleeve's staple line was inspected and there was no evidence of ischemia, bleeding or dehiscence. At that point the gastroscope was withdrawn from the patient?s mouth while we were decompressing the bowel and the stomach from any remaining air. I looked into the lesser sac to see how the sleeve was situating and it was situating well. There was no bleeding from the staple line, spleen, or short gastric vessels. The Mediflex retractor was removed, and the undersurface of the liver was inspected and there was no bleeding. The patient was placed in supine position. I closed the fascial defect of the 12 mm port site with a figure of eight #1 Polysorb suture. Then 100 cc 0.25 % Marcaine plain with 10 mg of Dexamethasone were used to infiltrate the fascial closure as well as all skin incisions. At this point, the abdomen was deflated, all ports were removed under direct vision, and no bleeding was noted from any of the port sites. The skin incisions were irrigated with saline and were closed with 4-0 absorbable monofilament sutures. Steri-Strips and OpSites were used to cover all incisions. The patient was extubated and was transferred in stable condition to the recovery room for further care. I was present and performed all coppola parts of the procedure. Ms. Rosen was the assistant auto center manager. There were no residents to assist with this case. Jhoan Soto MD, PhD, FACS Surgeon: José Soto MD Anesthesia: GETA, local and other (TAP block) Was an Baggage Agent used for this Procedure?: No Baggage Agent: Elizabeth Rosen Estimated blood loss (mL): 10 IV fluids (mL): 2,200 Urine output (mL): 0 (No [place] to record output) Pathology: other (1) Stomach) Condition: stable Disposition: PACU
--- NOTE | 2024-11-07 07:35 | P.PNGS_ITS ---
Subjective Subjective Date of Service: 11/08/24 Interval history: Feels well. Mild incisional pain. She is tolerating phase 1 bariatric diet Physical Exam 2 Vital Signs: Vital Signs: BMI result Body Mass Index 33.9 GI: Inspection: Yes normal to inspection, Yes incision (clean, dry and intact) and Yes obesity Palpation (GI): Soft to palpation Extrem: Right lower extremity: normal to inspection (no calf tenderness) L eft lower extremity: normal to inspection (no calf tenderness) Objective Data Active Medications Albuterol/Ipratropium (Albuterol/Iprat 2.5/0.5mg 3 Ml Ampul.Neb) 3 ml INHALE ONCE PRN PRN Reason: Bronchospasm/wheezing Stop: 11/07/24 13:28 Fentanyl (Fentanyl Citrate/Pf 100 Mcg/2 Ml Vial) 25 mcg IVPUSH Q5M PRN PRN Reason: Pain, Moderate to Severe (Pain Scale 4-10) Stop: 11/07/24 13:27 Haloperidol Lactate (Haloperidol Lactate 5 Mg/Ml Vial) 1 mg IVPUSH ONCE PRN PRN Reason: intractable nausea Stop: 11/07/24 13:27 Hydromorphone HCl (Hydromorphone Hcl 0.5 Mg/0.5 Ml Syringe) 0.25 mg IVPUSH Q5M PRN PRN Reason: Pain, Moderate to Severe (Pain Scale 4-10) Stop: 11/07/24 13:27 Lactated Ringer's (Lr) 1,000 mls @ 100 mls/hr IVCONT .Q10H [facility] Stop: 11/07/24 10:14 Lactated Ringer's (Lr) 1,000 mls @ 999 mls/hr IV .Q1H1M [facility] Stop: 11/07/24 08:15 Last Admin: 11/07/24 06:32 Dose: 999 mls/hr Documented By: MONTRELL Naloxone HCl (Naloxone Hcl 0.4 Mg/Ml Vial) 0.04 mg IVPUSH Q5M PRN PRN Reason: Excessive sedation or RR < 8 Ondansetron HCl (Ondansetron Hcl 4 Mg/2 Ml Vial) 4 mg IVPUSH ONCE PRN PRN Reason: Nausea and Vomiting Stop: 11/07/24 13:27 Oxycodone HCl (Oxycodone Hcl Immed Release 5 Mg Tablet) 5 mg PO ONCE PRN PRN Reason: Pain, Moderate(Pain Scale 4-6) if no IV Access Stop: 11/07/24 13:27 Labs 11/08/24 05:16 11/08/24 05:16 Labs: Laboratory Results - last 24 hr 11/07/24 06:05 Urine Test NEGATIVE Procedures Date of Service Date of Service: 11/08/24 Progress Note: A&P Assessment and plan (1) Obesity: Status: Acute Assessment and Plan: s/p laparoscopic sleeve gastrectomy and gastropexy Doing well Will check am labs and if OK the patient will be discharged home (2) BMI 35.0-35.9,adult: Status: Acute (3) PCOS (polycystic ovarian syndrome): Status: Acute (4) GERD (gastroesophageal reflux disease): Status: Acute (5) S/P laparoscopic sleeve gastrectomy: Status: Acute Time Spent With Patient Time: Total time managing care of this patient today ____ minutes. Quality Stroke Does the patient have a stroke diagnosis?: No VTE Prior VTE?: No VTE Risk Level:: Surgical - moderate VTE Device Contraindication: N/A - Device Ordered VTE Drug Contraindication: Treatment Not Indicated
[2024-11-07 08:20] LABS: Glucose, Whole Blood 76 mg/dL (60-115)
--- NOTE | 2024-11-07 10:25 | PM.DS ---
DS: Providers Provider Date of Service: 11/08/24 Date of admission: 11/07/24 06:01 Date of discharge: 11/08/24 Primary care physician: Unknown Physician DS: Diagnosis Discharge Diagnosis (1) Obesity: Status: Acute (2) PCOS (polycystic ovarian syndrome): Status: Acute (3) GERD (gastroesophageal reflux disease): Status: Acute DS: Summary Hospital Course Hospital Course: ADMITTING DIAGNOSIS: obesity, GERD, PCOS, diabetes DISCHARGE DIAGNOSIS: same, s/p laparoscopic sleeve gastrectomy and gastropexy PAST SURGICAL HISTORY:? History of root canal procedure PROCEDURE: upper endoscopy, laparoscopic sleeve gastrectomy and gastropexy DISCHARGE SUMMARY: History of Present Illness: The patient is a?34 year-old woman with a BMI of?33.9 kg/m2 and associated co-morbidities as described above. The patient had extensive work-up, lost?34.2 lbs preoperatively and was electively scheduled for laparoscopic, possible open sleeve gastrectomy and gastropexy. Risks and complications of the surgery were discussed with the patient in advance, particularly the possibility of , pulmonary embolism, anastomotic leak, bleeding, bowel injury, GERD, cardiac, renal or pulmonary complications. The patient understood all the risks and was in agreement with the surgical plan. Hospital Course: The patient underwent an uneventful laparoscopic sleeve gastrectomy with gastropexy on the day of admission. Postoperatively, the patient was transferred to the surgical floor. The patient received IV acetaminophen and IV Dilaudid for pain control. Patient was started on bariatric phase 1 diet POD #0. On postoperative day one, the patient was feeling well without nausea, vomiting, fevers, or tachycardia. The patient had some mild incisional pain and the abdomen was soft.? ? On the morning of postoperative day one, the patient was continued on 1 ounce of water or ice every half hour. During the day, the patient did fairly well, having some incisional pain, but able to ambulate adequately and to tolerate liquids well. Since the patient is doing well, we decided that the patient was ready to be discharged. The patient was given instructions to follow-up in office next week and to call the office for any fever over 101, persistent abdominal pain, nausea, vomiting, GERD, symptoms of DVT such as calf tenderness, or leg swelling, or pulmonary embolism such as chest pain or shortness of breath.? The patient was also instructed to drink 40-60 ounces of liquids per day using the 1-ounce cups. The patient had been given prescriptions for Tylenol for pain, Zofran prn for nausea, and pantoprazole and carafate previously. The patient was encouraged to ambulate and use the incentive spirometer. The patient was allowed to shower, but no baths, and encouraged to stay active at home. All of these instructions were given to the patient personally. All questions were answered and the patient understood all instructions, the instructions were also given to the patient in print. Time Attestation Discharge Coordination Time (in mins): 30 Quality: Safe Use of Opioids Does Pt have an Active Cancer Diagnosis on the Problem List?: No Quality: Stroke Does the patient have a stroke diagnosis?: No Physical Exam Vital Signs: Vital Signs: Last Vital Signs Temp 98.1 F 11/07/24 10:12 Pulse 75 11/07/24 10:20 Resp 16 11/07/24 10:20 BP 117/59 L 11/07/24 10:20 Pulse Ox 99 11/07/24 10:20 O2 Del Method Simple Mask 11/07/24 10:20 O2 Flow Rate 6 11/07/24 10:20 BMI result Body Mass Index 33.9 DS: Data Data Completed and Pending Pending studies at discharge: Pending at discharge 11/07/24 09:01 Surgical [PTH] Routine Labs on day of discharge: Laboratory Results - last 24 hr 11/07/24 11/07/24 06:05 06:22 POC Glucose 76 Urine Test NEGATIVE Discharge Plan Discharge Anticipated Discharge Date/Time: 11/07/24 10:23 Patient Disposition: Home, Self-Care Discharge Diagnosis: s/p laparoscopic sleeve gastrectomy with gastropexy Referrals: Physician,Unknown J [Primary Care Provider, Medical] - 1 Week Discharge Medications: Continued sucralfate 100 mg/mL suspension 10 ml PO BID Qty: 600 2RF pantoprazole 40 mg tablet,delayed release (DR/EC) 40 mg PO DAILY Qty: 90 0RF ondansetron 4 mg tablet,disintegrating 4 mg PO Q12H Qty: 20 0RF Rx Instructions: Only take one every 12 hours as needed if you have nausea Discontinued cholecalciferol (vitamin D3) 125 mcg (5,000 unit) capsule 125 mcg PO DAILY Qty: 90 0RF mecobalamin (vitamin B12) 1,000 mcg tablet,disintegrating 1,000 mcg sublingual DAILY Qty: 90 0RF Rx Instructions: place tablet under tongue and allow to dissolve for at least30 secs before swallowing polyethylene glycol 3350 17 gram/dose powder 17 g PO DAILY Qty: 238 0RF Rx Instructions: Mix each measuring cup with 8oz of water, Crystal light, or Gatorade zero, or Propel and do 7 measuring cups on 11/05/24 and another 7 measuring cups on 11/06/24 Discharge Orders: Discharge Order (Routine); Ordered 11/08/24 Ordered By: José Soto Activity on Discharge: No heavy lifting Stand Alone Forms: Patient Portal Discharge page Print Language: Vietnamese Care Plan Goals: weight loss Health Concerns: obesity Plan of Treatment: No tub baths, sex or returning to work until discussed at first post op appointment. No alcohol, tobacco or illegal drug use. Continue to use incentive spirometer hourly while awake. Walk in home for 5- 10 minutes every 2 hours during the first week. Wear abdominal binder with activity. Follow all meal plan instructions from your bariatric surgeon. Review bariatric handbook and call with any questions. Discharge Instructions 1. Please call your doctor or come back to the emergency room should any new symptoms arise. 2. Activity: abstain from alcohol,? limited stair climbing, no bending, no driving, no exercise, no illicit substances, no lifting, no sex, no tub bath, no work. 4. Diet: follow your bariatric surgeon's recommendations for advancing diet. 5. Dressing Change/Wound Care: Your incisions are covered with waterproof dressings. You can shower with these and pat dry. Do not rub over dressings or incisions. If the area is tender, you may apply an ice pack for short intervals (no more than 20 minutes on, followed by at least 20 minutes off). Do not apply heat. Do not use creams, lotions, or topical antibiotics unless instructed to do so by your surgeon. 6. Call your doctor if: - Your temperature exceeds 101.5 F - You experience excessive pain or swelling - You have an unexpected reaction to medication - You have excessive bleeding - You experience continued vomiting/nausea - Your incision begins to separate - Your incision shows signs of infection such as increased redness, swelling, excessive pain, heat, or drainage (light blood or clear fluid is normal) General instructions: No lifting greater than 10 lbs for the next 6 weeks[address] driving within 24 hours of taking narcotic pain medications. If you do not move your bowels in the next 2 days, please take milk of magnesia over the counter. Please follow the post op diet and do not advance your diet until instructed by your surgeon or until you are seen in the office in about 1 week. Please walk around your home every hour or two to prevent blood clots from forming in your legs. You do not need to wake from sleeping to walk. Please sleep in a bed or couch to prevent kinking at the hips and knees. Please take your incentive spirometer (your lung regional rehabilitation director) home with you and use it for the next few days to prevent pneumonias. You may shower; no hot tubs, baths or swimming pools. Please make sure you are consuming 40-60 ounces of total fluids per day. Avoid all carbonation. Please call the office with any questions or concerns such as increasing abdominal pain, fever, chills, shortness of breath, chest pain, leg pain or swelling, or redness or drainage from your incisions. Do not hesitate to contact the office with any questions at . The patient's medical history has been reviewed and they are considered low risk for post op DVT and therefore DVT prophylaxis is not considered necessary. Travel after surgery was reviewed. The patient has not disclosed any travel plans during the first 30 days after surgery and they have been advised that within the first 30 days after surgery any bus, plane, train or car travel over 2 hours in duration is contraindicated due to the possibility of developing blood clots from immobility. Any travel, needs to include periods of ambulation of 10 minutes in duration every 2 hours.? The patient was instructed to discuss any plans for travel during this period with their bariatric surgeon. Assessment: s/p laparoscopic sleeve gastrectomy with gastropexy Patient Instructions: Laparoscopic Sleeve Gastrectomy (DC) Discharge Date/Time: 11/08/24 09:24
[2024-11-07 10:42] LABS: Hematocrit 38.8 % (37.0-47.0); Hemoglobin 12.5 g/dl (12.0-16.0)
[2024-11-07 11:14] LABS: Anion Gap 15 (12-20); Blood Urea Nitrogen 7 mg/dL (9-16); Calcium 8.7 mg/dL (8.4-10.2); Carbon Dioxide 24 mmol/L (22-29); Chloride 106 mmol/L (96-108); Creatinine Clr Calc Pharmacy 139.7; Estimated Glomerular Filt Rate > 60; Potassium 3.6 mmol/L (3.3-5.1); Sodium 141 mmol/L (135-145)
[2024-11-07] MEDS: Lactated Ringers 1,000 ML 100 ML IVCONT ×2 (12:05→21:23)
--- NOTE | 2024-11-07 12:31 | PHA.MEDREC ---
Pharmacy Consult ? Medication Reconciliation Pharmacy has reviewed the medication reconciliation completed by nursing, pt does not take aspirin anymore.
[2024-11-08 03:34] VITALS: BP 119/66; PULSE 68; RESP 17; TEMP 36.5; O2SAT 96
[2024-11-08 05:48] LABS: MANUAL DIFF FLAG NO
--- NOTE | 2024-11-08 05:51 | PC.NURSE ---
Pt alert and oriented, tolerating phase I Bariatric diet, ambulating to BR, upper abd dressing CDI, abd soft, slept fairly.
[2024-11-08 05:57] LABS: Hematocrit 37.5 % (37.0-47.0); Hemoglobin 12.1 g/dl (12.0-16.0); Imm Gran Abs Auto 0.04 X10*3/uL (0.00-0.03); Imm Gran Pct Auto 0.5 % (0.0-0.4); Lymphocytes Absolute Auto 1.8 X10*3/uL (1.2-4.9); Mean Corpuscular HGB Conc 32.3 g/dl (31.0-35.0); Mean Corpuscular Hemoglobin 27.6 pg (27.0-33.0); Mean Corpuscular Volume 85.4 fL (80.0-98.0); NRBC Abs Auto 0.000 X10*3/uL (0.0-0.012); NRBC Pct Auto 0.0 /100WBC (0.0-0.2); Platelet Count 326 X10*3/uL (160-400); Red Blood Count 4.39 X10*6/uL (4.20-5.50); White Blood Count 8.3 X10*3/uL (4.8-10.8)
[2024-11-08 06:13] LABS: Anion Gap 12 (12-20); Blood Urea Nitrogen 5 mg/dL (9-16); Calcium 9.1 mg/dL (8.4-10.2); Carbon Dioxide 24 mmol/L (22-29); Chloride 107 mmol/L (96-108); Creatinine Clr Calc Pharmacy 159.1; Estimated Glomerular Filt Rate > 60; Potassium 4.3 mmol/L (3.3-5.1); Sodium 139 mmol/L (135-145)
[2024-11-08] MEDS: Lactated Ringers 1,000 ML 100 ML IVCONT (06:15)
[2024-11-08 07:33] VITALS: BP 119/63; PULSE 73; RESP 16; TEMP 36.6; O2SAT 96
--- NOTE | 2024-11-08 08:48 | HO.POSTANES ---
Post Anesthesia Evaluation Post Anesthesia Evaluation Date of Service: 11/08/24 Vital Signs: Vital Signs Temp Pulse Resp BP Pulse Ox O2 Del Method 11/08/24 07:33 97.9 F 73 16 119/63 96 Room Air 11/08/24 03:34 97.7 F 68 17 119/66 96 Room Air 11/07/24 23:17 98.7 F 74 19 128/67 95 Room Air Anesthesia: General Mental Status: Awake Pain Control: Satisfactory Nausea/Vomiting: None Hydration: Adequate Anesthesia-Related Issues: No Anes. Related Issues
--- NOTE | 2024-11-08 09:42 | MHC.CM.PN ---
Patient dc'd home self care via private transport prior to CM assessment.
== END 2024-11-08 09:24 | disposition home or self-care (01) | DRG 403 ==
LOC: HO.SSSA 07:33 → HO.S3 10:23
PROVIDERS: Nurse Practitioner; Physician Assistant Surgical; Admitting Provider Surgery; Visit Provider Surgery
PROC: 0DB64Z3 Excision of Stomach, Percutaneous Endoscopic Approach, Vertical (ICD-10-PCS; CPT 43845; principal; 2024-11-07 07:30)
DX: E66.01 Morbid (severe) obesity due to excess calories (principal); E28.2 Polycystic ovarian syndrome; K21.9 Gastro-esophageal reflux disease without esophagitis; Z68.35 Body mass index [BMI] 35.0-35.9, adult; Z79.899 Other long term (current) drug therapy
CPT/HCPCS: 36415; 80048; 80053; 80061; 81025; 82947; 83036; 83525; 84443; 85014; 85018; 85025; 85610; 85730; 86140; 86850; 86900; 86901; 88304; 88307; 88342; A4649; C9145; J0131; J0690; J1100; J1171; J1308; J1630; J2003; J2250; J2405; J2704; J2765; J2795; J3010; J7120

== ENCOUNTER → 2024-11-07 06:01 | Outpatient (BNV) | payer OTHER, SELFPAY | PROVIDERS: Admitting Provider Surgery; Visit Provider Surgery | DX: E66.9 Obesity, unspecified (principal); Z68.38 Body mass index [BMI] 38.0-38.9, adult | CPT/HCPCS: 43659; 43775; 99024 ==

== ENCOUNTER 2024-11-13 13:26 | Outpatient (AMB) | payer OTHER, SELFPAY ==
--- NOTE | 2024-11-13 13:36 | MHC.OFFVISWM ---
VS Expanded 11/13/24 13:55 BP 135/76 Blood Pressure Location Rt brachial Blood Pressure Position Sitting Pulse 87 Pulse Source Pulse Oximeter Temp 96.1 F L Temperature Source Temporal Artery Scan Pulse Oximetry 99 Oxygen Delivery Method Room Air Height 5 ft 5 in Weight 193 lb 12.8 oz BMI 32.2 Body Fat % 38.8 Body Fat Mass 75.2 Fat Free Mass 118.6 Visceral Fat Rating 7.0 Body Water % 43.9 Body Water Mass 85.0 Muscle Mass/Score 112.6 Basal Metabolic Rate/Score 1,655 Intake Visit Reasons: OV PO LSG 11/07/24 Allergies No Known Allergies Allergy (Verified 11/13/24 13:44) HPI Comments Details: Pt is s/p LSG 11/07/2024. No pain. No nausea. Tolerating 3 Muscle Milk shakes, mixed in almond milk to total 8oz liquid. Hydration is adequate- 35-40oz per day. [facility] Medical History (Updated 11/09/24 @ 00:01 by Robert Figueredo) BMI 35.0-35.9,adult GERD (gastroesophageal reflux disease) Abdominal pain PCOS (polycystic ovarian syndrome) Surgical History S/P gastric sleeve procedure History of root canal procedure Family History Family/Other No problems noted. Mother Diabetes Son No problems noted. Son No problems noted. Daughter No problems noted. Social History Household Members: Family Housing: Apartment Housing Other:: [facility] Are you a primary overnight caregiver to a significant other at home: No Do you presently have visiting nurse or other home services: No Alcohol intake: current Alcohol intake frequency: a few times a month Alcohol type: wine Patient Tobacco Use Status: Never used Tobacco Substance Use Type: Marijuana service: No Current occupational status: unemployed Physical Exam Const General: cooperative, comfortable and no acute distress Orientation/consciousness: patient oriented x3 GI Other: soft, nontender, nondistended, steri-strips c/d/i Neuro General: patient oriented x3 Assessment & Plan Assessment & Plan (1) Obesity: Code(s): E66.9 - Obesity, unspecified Category: Medical Qualifiers: Obesity type: due to excess calories Obesity classification: adult class 2 (BMI 35 - 39.9) Serious obesity comorbidity presence: with serious comorbidity Body mass index: BMI 37.0-37.9 Qualified Code(s): E66.01 - Morbid (severe) obesity due to excess calories; Z68.37 - Body mass index [BMI] 37.0-37.9, adult (2) S/P laparoscopic sleeve gastrectomy: Code(s): Z98.84 - Bariatric surgery status Category: Medical Plan May shower tomorrow but no bath or submersion of abdomen in water. May start exercise in 2 days.? No abdominal exercises x 6 weeks. Abdominal binder for the next 2 weeks with activity or exercise. Continue meal plan per Dr Conway until next f/u in 5 weeks. Reviewed pantoprazole and carafate dosing. Reminded of the pace of drinking 2 mL/min or 1oz per 15 min. Will be emailed link for post op video for review.
[2024-11-13 13:55] VITALS: BP 135/76; PULSE 87; TEMP 35.6; O2SAT 99; BMI 32.2
== END 2024-11-13 14:45 | disposition home or self-care (01) ==
LOC: HO.HBS 13:26
PROVIDERS: Visit Provider Physician Assistant Surgical
DX: E66.9 Obesity, unspecified (principal); Z68.32 Body mass index [BMI] 32.0-32.9, adult; Z90.3 Acquired absence of stomach [part of]; Z98.84 Bariatric surgery status
CPT/HCPCS: 99024

== ENCOUNTER → 2024-11-13 13:26 | Outpatient (BNVA) | payer OTHER, SELFPAY | PROVIDERS: Visit Provider Physician Assistant Surgical | DX: E66.812 Obesity, class 2 (principal); Z68.32 Body mass index [BMI] 32.0-32.9, adult; Z90.3 Acquired absence of stomach [part of] | CPT/HCPCS: 99212 ==

== ENCOUNTER 2024-11-15 11:22 | Outpatient (AMB) | payer OTHER, SELFPAY ==
--- NOTE | 2024-11-15 11:21 | MHC.WMTHER ---
Intake Intake Visit Reasons: TV PO LSG 11/07/2024 Allergies No Known Allergies Allergy (Verified 11/13/24 13:44) [facility] Medical History (Updated 11/09/24 @ 00:01 by Robert Figueredo) BMI 35.0-35.9,adult GERD (gastroesophageal reflux disease) Abdominal pain PCOS (polycystic ovarian syndrome) Surgical History S/P gastric sleeve procedure History of root canal procedure Family History Family/Other No problems noted. Mother Diabetes Son No problems noted. Son No problems noted. Daughter No problems noted. Social History Household Members: Family Housing: Apartment Housing Other:: town house Are you a primary managed care director to a significant other at home: No Do you presently have visiting nurse or other home services: No Alcohol intake: current Alcohol intake frequency: a few times a month Alcohol type: wine Patient Tobacco Use Status: Never used Tobacco Substance Use Type: Marijuana service: No Current occupational status: unemployed Behavioral Health Assessment Weight Management Therapy Therapy Notes Details Subjective: The patient underwent weight loss surgery on 11/07/2024. Her weight on the day of surgery was 203 lbs; as of 11/14/2024, her weight is 193 lbs. She denies any pain, discomfort, or complications during her recovery and reports she is tolerating the liquid diet without difficulty. Mood is described as good. She reports strong support from her . The patient denies experiencing hunger or intrusive thoughts about food at this time. Objective: The patient presents for a behavioral health post-operative follow-up visit. A guided emotional check-in was conducted to assess her current functioning, recovery, mood, and emotional state. Psychoeducation was provided on the emotional and psychological adjustments commonly experienced after bariatric surgery. We also focused on distinguishing between hunger and cravings or food thoughts, exploring possible reasons for these experiences, and strategies to work on her mindset. Emphasis was placed on becoming mindful of her physical and mental needs during these times while staying on track. The PHQ-9 was administered to screen for symptoms of depression. The importance of adhering to the Weight Management Program (WMP) providers' instructions was emphasized, including the pace of drinking and following the meal and exercise plan. Tips and recommendations for long-term success were also discussed. Program resources were provided, and the patient was invited to join our Facebook group to stay informed about ongoing events and activities. Assessment/Response: Mental status: WNL Risk reported/identified: None Questionnaires PHQ-9 Over the last 2 weeks, how often have you been bothered by any of the following problems? 1. Little interest or pleasure in doing things: not at all 2. Feeling down, depressed, or hopeless: not at all 3. Trouble falling or staying asleep, or sleeping too much: not at all 4. Feeling tired or having little energy: not at all 5. Poor appetite or overeating: not at all 6. Feeling bad about yourself - or that you are a failure or have let yourself or your family down: not at all 7. Trouble concentrating on things, such as reading the newspaper or watching television: not at all 8. Moving or speaking so slowly that other people could have noticed. Or the opposite - being so fidgety or restless that you have been moving around a lot more than usual: not at all 9. Thoughts that you would be better off or of hurting yourself in some way: not at all Total score: 0 Depression Screening Interpretation: Negative Depression Screening Done: Yes 77322 - PHQ-9 Billing: Yes Source: Developed by Drs. Lit Walker, Kaycee Cha, Benedict Villagomez and colleagues, with an educational yaritza from [employer]. Assessment & Plan Assessment & Plan (1) Adjustment disorder: Code(s): F43.20 - Adjustment disorder, unspecified (2) S/P laparoscopic sleeve gastrectomy: Code(s): Z98.84 - Bariatric surgery status Plan No safety concerns or issues were identified that would necessitate behavioral health monitoring. The patient declined further visits but is aware of the available behavioral health support if needed in the future. Telehealth Telehealth Telehealth Platform: [facility] Location of provider rendering services: practice address Location of patient: address on file Patient Identification confirmed using: Name, : Yes Telehealth method: video Patient verbally consented to treatment: Yes Patient verbally consented to billing insurance company: Yes Patient informed of any privacy concerns related to visit: Yes Minutes spent on Phone/Video with Pt.: 25 Coding Level of Care Code Tele Psytx 30 mins (26973) Diagnoses Adjustment disorder F43.20 S/P laparoscopic sleeve gastrectomy Z98.84 Additional Codes PHQ-9 - 57398 - PHQ-9 Billing: Yes ([id number]) Time Spent (min) 25
== END 2024-11-15 11:50 | disposition home or self-care (01) ==
LOC: HO.HBST 11:22
PROVIDERS: Visit Provider Counselor Mental Health
DX: F43.20 Adjustment disorder, unspecified (principal); Z98.84 Bariatric surgery status
CPT/HCPCS: 90832

== ENCOUNTER 2024-12-27 10:01 | Outpatient (AMB) | payer OTHER, SELFPAY ==
--- NOTE | 2024-12-27 09:52 | A.OFFVIS_ITS ---
VS Expanded 12/27/24 09:53 Height 5 ft 5 in Weight 175 lb BMI 29.1 Body Fat % 40.9 Body Fat Mass 71.7 Fat Free Mass 103.4 Visceral Fat Rating 8 Body Water % 43.1 Body Water Mass 75.5 Intake Visit Reasons: TV PO LSG 11/07/24 Allergies No Known Allergies Allergy (Verified 11/13/24 13:44) Medication List - Last Reconciled 12/27/24 by MARIANA Love No Known Home Meds HPI Comments Details: This?is a?34?yo F who is s/p LSG 11/07/2024. Presents for 6w post op visit. Weight loss of 18.8lb since last OV at 1w postop. No complaints of nausea, emesis, abdominal pain or reflux, or constipation. Present meal plan includes: Muscle Milk shake and Atkins bars 3 forks chicken, 3 forks broccoli- started this week started MVI Exercise routine includes: bike or treadmill- 4x/week for 500 calories [facility] Medical History (Updated 12/27/24 @ 09:59 by MARIANA Love) BMI 35.0-35.9,adult GERD (gastroesophageal reflux disease) Abdominal pain PCOS (polycystic ovarian syndrome) Surgical History S/P gastric sleeve procedure History of root canal procedure Family History Family/Other No problems noted. Mother Diabetes Son No problems noted. Son No problems noted. Daughter No problems noted. Social History Household Members: Family Housing: Apartment Housing Other:: town house Are you a primary progressive care unit registered nurse to a significant other at home: No Do you presently have visiting nurse or other home services: No Alcohol intake: current Alcohol intake frequency: a few times a month Alcohol type: wine Patient Tobacco Use Status: Never used Tobacco Substance Use Type: Marijuana service: No Current occupational status: unemployed Telehealth Telehealth Telehealth Platform: Telephone Location of provider rendering services: other Location of patient: address on file Patient Identification confirmed using: Name, : Yes Telehealth method: voice only Patient verbally consented to treatment: Yes Patient verbally consented to billing insurance company: Yes Patient informed of any privacy concerns related to visit: Yes Minutes spent on Phone/Video with Pt.: 12 Assessment & Plan Assessment & Plan (1) Overweight: Code(s): E66.3 - Overweight Category: Medical (2) S/P laparoscopic sleeve gastrectomy: Code(s): Z98.84 - Bariatric surgery status Category: Medical Plan Pt doing very well with pace of weight loss. Appropriate meal plan and exercise regimen. Cleared for all activity, no restrictions. Continue PPI and carafate until 3mo postop. RTC in Mar.
[2024-12-27 09:53] VITALS: BMI 29.1
== END 2024-12-27 10:01 | disposition home or self-care (01) ==
LOC: HO.HBS 10:01
PROVIDERS: Visit Provider Physician Assistant Surgical
DX: E66.3 Overweight (principal); Z68.29 Body mass index [BMI] 29.0-29.9, adult; Z90.3 Acquired absence of stomach [part of]; Z98.84 Bariatric surgery status
CPT/HCPCS: 99024